=== PATIENT | male | born 1965 | race Caucasian/White ===

== ENCOUNTER 2017-10-31 13:23 | Inpatient (IN) | payer OTHER, MEDICAID ==
[~2017-10-31] VITALS: Ht 175.3 cm; Wt 57.2 kg
[2017-10-31 14:43] LABS: BASOPHILS # (AUTO) 0.3 K/uL (0.00-0.22); BASOPHILS % (AUTO) 2.1 % (0.0-2.0); EOSINOPHILS # (AUTO) 0.1 K/uL (0-0.4); EOSINOPHILS % (AUTO) 1.1 % (0.0-4.0); HEMATOCRIT 43.3 % (36-52); HEMOGLOBIN 13.6 g/dL (12.0-18.0); LYMPHOCYTES # (AUTO) 1.8 K/uL (2.0-11.5); LYMPHOCYTES % (AUTO) 14.2 % (20.5-51.1); MEAN CORPUSCULAR HEMOGLOBIN 26 pg (27-31); MEAN CORPUSCULAR HGB CONC 32 g/dL (33-37); MEAN CORPUSCULAR VOLUME 84 fL (80-94); MONOCYTES # (AUTO) 1.2 K/uL (0.8-1.0); MONOCYTES % (AUTO) 9.3 % (1.7-9.3); NEUTROPHILS % (AUTO) 73.3 % (42.2-75.2); PLATELET COUNT (AUTO) 330 K/uL (140-450); RED BLOOD CELL COUNT(AUTO) 5.18 MIL/uL (4.20-6.10); RED CELL DISTRIBUTION WIDTH 14.1 % (11.6-13.7); WHITE BLOOD COUNT (AUTO) 12.4 K/uL (4.8-10.8)
--- NOTE | 2017-10-31 15:00 | NUR ---
PT BIB CAREGIVER FOR EVALUATION OF GT MALFUNCTION, REFERRED PER PCP. HX MR, GERD, ANEMIA, GT, HYPERSCOLIOSIS, HIATAL HERNIA. CAREGIVER REPORTS PT HAS HAD MULTIPLE ISSUES W/GT, SEVERAL MALFUNCTIONS, HIGH RESIDUALS, CHANGED FROM GT TO JT AND BACK AGAIN. DENIES N/V/D; SKIN IS PINK/WARM/DRY; AAOX4 WITH EVEN AND STEADY GAIT; LUNGS CLEAR BL; HR EVEN AND REGULAR; PT DENIES ANY FEVER, CP, SOB, OR COUGH AT THIS TIME; PATIENT STATES PAIN OF 0/10 AT THIS TIME; VSS; PATIENT POSITIONED FOR COMFORT; HOB ELEVATED; BEDRAILS UP X2; BED DOWN. ER MD MADE AWARE OF PT STATUS.
[2017-10-31 15:11] LABS: ANION GAP 11.9 (8-16); POTASSIUM 4.9 mmol/L (3.5-5.1)
[2017-10-31 15:12] LABS: ALBUMIN 3.5 g/dL (3.4-5.0); CREATININE 1.2 mg/dL (0.7-1.3); TOTAL BILIRUBIN 0.3 mg/dL (0.0-1.0)
[2017-10-31] MEDS ORDERED: NACL 0.9% 1,000 ML IV ONE (15:30)
[2017-10-31] MEDS ORDERED: HYDROcodone/APAP 7.5/325 MG 1 TAB PO PRN (15:35)
[2017-10-31] MEDS ORDERED: ACETAMINOPHEN 325 MG TAB PO PRN (15:35)
[2017-10-31] MEDS ORDERED: ONDANSETRON 4 MG/2 ML VIAL IVP PRN (15:35)
[2017-10-31 16:26] LABS: PROTHROMBIN TIME 10.3 secs (10.8-13.4)
[2017-10-31 16:31] LABS: APPEARANCE,URINE CLOUDY (CLEAR); COLOR,URINE YELLOW (YELLOW)
[2017-10-31 16:32] LABS: UGLUCOSE NEGATIVE (NEGATIVE)
[2017-10-31 16:33] LABS: BILIRUBIN,URINE NEGATIVE (NEGATIVE); BLOOD, URINE 1+ (NEGATIVE)
[2017-10-31 16:34] LABS: LEUKOCYTE ESTERASE ,URINE 4+ (NEGATIVE); NITRITE, URINE NEGATIVE (NEGATIVE)
[2017-10-31] MEDS ORDERED: HALOPERIDOL IM 5 MG/ML VIAL IM PRN (16:35)
[2017-10-31 16:36] LABS: RBC,URINE 3-10 (FEW) /HPF (0-5); WBC,URINE 60-80 /HPF (0-5)
[2017-10-31 16:37] LABS: MAGNESIUM 2.5 mg/dL (1.8-2.4); PHOSPHORUS 3.5 mg/dL (2.5-4.9)
--- NOTE | 2017-10-31 16:40 | NUR ---
RECEIVED BEDSIDE REPORT FROM RESHMA. PATIENT IS AWAKE, NONVERBAL. DOES NOT FOLLOW COMMANDS. HAS CEREBRAL PALSY. LIKES TO HAS HIS ARMS FOLDED, AND STRAIGHTENS HIS LEGS AND BRINGS THEM TO HIS CHEST. DOES A ROCKING MOTION AND GRINDS HIS TEETH. PATIENT IS ON ROOM AIR. NO SIGNS AND SYMPTOMS OF ACUTE DISTRESS NOTED AT THIS TIME. PATIENT HAS G-TUBE IN BUT IS CURRENTLY NOT PATENT. NO FEEDING ORDERED AT THIS TIME. HAS IV TO LEFT AC 22G, DUE TO PATIENT LIKING TO KEEP ARM BENT IT WILL ALARM EVERY NOW AND THEN. SKIN IS INTACT, HAS REDNESS ON INNER BUTTOCKS. WILL AWAIT DRS ORDERS. WILL CONTINUE TO MONITOR.
--- NOTE | 2017-10-31 16:42 | NUR ---
Patient will be admitted to care of DR GIBBS. Admited to TELE. Will go to room 105B. Belongings list completed. Report to ROBERTO CARLOS SALMERON.
[2017-10-31] MEDS ORDERED: METO5SOL19 GT (17:21)
[2017-10-31] MEDS ORDERED: [UNRECOGNIZED DRUG - CODE] PO (17:21)
[2017-10-31] MEDS ORDERED: LORA5SOL3 PO (17:21)
[2017-10-31] MEDS ORDERED: BENZ1TAB42 PO (17:21)
[2017-10-31] MEDS ORDERED: HAL1 GT (17:21)
[2017-10-31] MEDS ORDERED: INSULIN LISPRO SLIDING SCALE 100 UNITS/ML VIAL SUBQ PRN (17:40)
[2017-10-31] MEDS ORDERED: DEXTROSE 50% 50 ML SYR IVP PRN (17:40)
--- NOTE | 2017-10-31 19:25 | NUR ---
ENDORSED PATIENT TO TECHNICAL SERVICES LIBRARIAN NURSE FOR CONTINUITY OF CARE. PATIENT IN STABLE CONDITION.
--- NOTE | 2017-10-31 19:25 | NUR ---
RECEIVED PT IN STABLE CONDITION FROM AM NURSE. PT ON TELE MONITOR. AWAKE,BUT NON VERBAL .HX: OF MENTAL RETARDATION, CEREBRAL PALSY. BEDREST. WITH SIDE RAILS UP AT ALL TIMES. BED ON LOW POSITION. FREQUENT ROUNDS NEEDED. CALL LIGHT PLACED WITHIN EASY REACH. HAS IVF INFUSING WELL ON THE LT AC#22. ROCEPHIN IVPB STILL INFUSING . SKIN RASHES ON THE BUTTOCKS. WILL KEEP PT CLEAN AND DRY. WILL CONTINUE TO MONITOR.
[2017-10-31 19:40] VITALS: BP 91/59
[2017-10-31] MEDS: DOCUSATE SODIUM 100 MG GELCAP PO SCH (21:00)
[2017-10-31] MEDS: NACL 0.9% 1,000 ML IV SCH ×2 (21:00→23:35)
[2017-10-31] MEDS: BLOOD GLUCOSE MONITORING 1 DEV DEV FS SCH (21:08)
--- NOTE | 2017-10-31 22:00 | NUR ---
MRSA NARES GABY SPECIMEN COLLECTED AND SEND TO LAB.
[2017-11-01] VITALS: BP 98/65
--- NOTE | 2017-11-01 01:34 | NUR ---
PT CAN'T KEEP THE ARM STRAIGHT FOR THE IVF . ANOTHER IV ACCESS STARTED ON THE LT WRIST #24. CLEAR AND PATENT.
[2017-11-01] MEDS: NACL 0.9% 1,000 ML IV SCH ×2 (02:28→07:35)
--- NOTE | 2017-11-01 02:43 | NUR ---
DR. RABAGO HERE AND SHE SAID NO NEED TO FAX AUTHORIZATION OF RECORDS FROM [facility] .
[2017-11-01] MEDS: HYDRAGUARD CREAM TP ONE ×2 (03:25→13:35)
[2017-11-01 04:07] VITALS: BP 103/68
--- NOTE | 2017-11-01 05:00 | NUR ---
MADE ROUNDS. PT IS ASLEEP. NO S/S OF ANY DISCOMFORT NOR DISTRESS NOTED.
[2017-11-01] MEDS: BLOOD GLUCOSE MONITORING 1 DEV DEV FS SCH ×4 (06:18→20:22)
--- NOTE | 2017-11-01 06:18 | NUR ---
BLOOD SUGAR CHECKED THIS AM RESULT 110.
--- NOTE | 2017-11-01 07:12 | NUR ---
ENDORSED PT IN STABLE CONDITION TO AM NURSE.
--- NOTE | 2017-11-01 07:14 | NUR ---
PT RESTING IN BED. AAOX1. NO S/S OF ACUTE DISTRESS. FLACC-0. IV SITES PATENT AND INTACT. TELE BOX IN PLACE. CALL LIGHT WITHIN REACH. SAFETY MEASURES ENSURED. WILL CONTINUE TO MONITOR.
[2017-11-01 07:35] VITALS: BP_SYST 149; BP_SYST 97; BP_DIAS 58; BP_DIAS 85
[2017-11-01 07:38] LABS: BASOPHILS # (AUTO) 0.1 K/uL (0.00-0.22); BASOPHILS % (AUTO) 1.3 % (0.0-2.0); EOSINOPHILS # (AUTO) 0.2 K/uL (0-0.4); EOSINOPHILS % (AUTO) 2.2 % (0.0-4.0); HEMATOCRIT 37.3 % (36-52); HEMOGLOBIN 12.3 g/dL (12.0-18.0); LYMPHOCYTES # (AUTO) 1.7 K/uL (2.0-11.5); LYMPHOCYTES % (AUTO) 18.7 % (20.5-51.1); MEAN CORPUSCULAR HEMOGLOBIN 27 pg (27-31); MEAN CORPUSCULAR HGB CONC 33 g/dL (33-37); MEAN CORPUSCULAR VOLUME 83 fL (80-94); MONOCYTES # (AUTO) 0.9 K/uL (0.8-1.0); MONOCYTES % (AUTO) 9.9 % (1.7-9.3); NEUTROPHILS # (AUTO) 6.1 K/uL (1.8-7.7); NEUTROPHILS % (AUTO) 67.9 % (42.2-75.2); PLATELET COUNT (AUTO) 236 K/uL (140-450); RED BLOOD CELL COUNT(AUTO) 4.51 MIL/uL (4.20-6.10); RED CELL DISTRIBUTION WIDTH 13.7 % (11.6-13.7)
[2017-11-01] MEDS: PANTOPRAZOLE 40 MG INJ VIAL IVP SCH (08:00)
[2017-11-01] MEDS: DOCUSATE SODIUM 100 MG GELCAP PO SCH ×2 (08:00→20:25)
[2017-11-01] MEDS: FAMOTIDINE 20 MG/2 ML VIAL IVP SCH (08:00)
[2017-11-01] MEDS: BENZTROPINE 2 MG/2 ML AMP IVP SCH (08:00)
[2017-11-01] MEDS: LACTOBACILLUS RHAMNOSUS GG 1 EACH CAP PO SCH (08:00)
--- NOTE | 2017-11-01 08:01 | NUR ---
PER DR. EMERY OKAY TO HOLD AM MEDS SINCE PT IS NPO AND G-TUBE IS LEAKING.
--- NOTE | 2017-11-01 08:57 | NUR ---
PATIENT HAS BEEN SCREENED AND CATEGORIZED HIGH NUTRITION RISK. PATIENT WILL BE SEEN WITHIN 1-2 DAYS OF ADMISSION. 11/01/17-11/02/[address]
[2017-11-01 09:04] LABS: ANION GAP 10.7 (8-16); CARBON DIOXIDE 31.2 mmol/L (21-32); POTASSIUM 3.9 mmol/L (3.5-5.1)
[2017-11-01 09:26] LABS: MAGNESIUM 2.4 mg/dL (1.8-2.4); PHOSPHORUS 3.7 mg/dL (2.5-4.9)
[2017-11-01 12:00] VITALS: BP 102/46
--- NOTE | 2017-11-01 12:03 | NUR ---
PT RESTING IN BED. NO S/S OF ACUTE DISTRESS. PT DENIES PAIN. CALL LIGHT WITHIN REACH. SAFETY MEASURES ENSURED. WILL CONTINUE TO MONITOR. Addendum: 11/01/17 at 1543 by Jp Dimas RN FLACC-0
[2017-11-01] MEDS: NACL 0.45% 1,000 ML IV SCH ×2 (12:30→20:24)
--- NOTE | 2017-11-01 15:43 | NUR ---
PT SLEEPING IN BED. NO S/S OF ACUTE DISTRESS. WILL CONTINUE TO MONITOR.
[2017-11-01 16:00] VITALS: BP 125/72
--- NOTE | 2017-11-01 16:17 | NUR ---
ENDORSED PLAN OF CARE TO RN. PT REMAINS STABLE
--- NOTE | 2017-11-01 17:30 | NUR ---
PATIENT TURNED AND REPOSITIONED FOR COMFORT
--- NOTE | 2017-11-01 18:35 | NUR ---
PATIENT ASLEEP IN BED. NO S/S OF DISTRESS NOTED
--- NOTE | 2017-11-01 19:18 | NUR ---
PATIENT REPORT GIVEN AT BEDSIDE. PATIENT ENDORSED IN STABLE CONDITION
--- NOTE | 2017-11-01 19:19 | NUR ---
PATIENT REPORT RECEIVED FROM MORNING NURSE AT BEDSIDE. PATIENT IS AWAKE. APHASIC. NO SIGNS AND SYMPTOMS OF DISTRESS NOTED. IV SITE NOTED ON LEFT AC, IVF INFUSING WELL. BED IN LOWEST POSITION, SIDE RAILS UP AND CALL LIGHT WITHIN REACH. WILL CONTINUE TO MONITOR.
[2017-11-01 20:00] VITALS: BP 103/68
[2017-11-01] MEDS: ZINC OXIDE 113 GM TUBE TP SCH (20:29)
--- NOTE | 2017-11-01 21:00 | NUR ---
COLACE HELD, PATIENT HAD 2 BOWEL MOVEMENTS IN THE MORNING
--- NOTE | 2017-11-01 21:30 | NUR ---
PATIENT POSITIONED FOR COMFORT. NO SIGNS AND SYMPTOMS OF DISTRESS NOTED. WILL CONTINUE TO MONITOR.
--- NOTE | 2017-11-01 23:00 | NUR ---
CHECKED ON PATIENT. PATIENT IS RESTING COMFORTABLY IN BED. NO SIGNS AND SYMPTOMS OF DISTRESS NOTED. PATIENT REPOSITIONED FOR COMFORT.
[2017-11-02] VITALS: BP 106/69
--- NOTE | 2017-11-02 02:00 | NUR ---
CHECKED ON PATIENT PATIENT IS ASLEEP. NO SIGNS AND SYMPTOMS OF DISTRESS NOTED. PATIENT REPOSITIONED FOR COMFORT
--- NOTE | 2017-11-02 04:00 | NUR ---
PATIENT VOMITED ON HIS GOWN. THE VOMIT WAS MODERATE IN AMOUNT AND WAS A LIGHT BROWN COLOR. I CHANGED THE PATIENT'S GOWN AND LINENS AND ADMINISTERED MEDICATION ORDERED FOR NAUSEA AND VOMITING. WILL CONTINUE TO MONITOR.
[2017-11-02] MEDS: NACL 0.45% 1,000 ML IV SCH (05:42)
[2017-11-02] MEDS: BLOOD GLUCOSE MONITORING 1 DEV DEV FS SCH ×4 (06:37→21:22)
--- NOTE | 2017-11-02 07:12 | NUR ---
PATIENT REPORT GIVEN TO MORNING NURSE AT BEDSIDE. PATIENT IS IN STABLE CONDITION
--- NOTE | 2017-11-02 07:13 | NUR ---
RECEIVED REPORT FROM PORTER SAMPLE CASE RN AT BEDSIDE FOR CONTINUITY OF CARE. PATIENT IS AWAKE AND NONVERBAL. PATIENT HAS IV ON LEFT AC 22G RUNNING 1/2 NS AT 100 ML/HR. PATIENT IS ON ROOM AIR. PATIENT HAS GTUBE. PATIENT HAS A DIAPER. PATIENT IS NPO AT THIS TIME. PATIENT HAS RASH ON GROIN AREA. PATIENT HAS SCDS. UPPER SIDE RAILS UP, BED ON LOWEST SETTING, CALL LIGHT WITHIN REACH, BED ALARM ON. PATIENT SHOWS NO SIGNS OF DISTRESS. Addendum: 11/02/17 at 1040 by Guillermo Taylor RN PATIENT LEFT AC WRAPPED IN KERLIX TO KEEP ARM STRAIGHT. PATIENT HAS IV ON LEFT WRIST 24 G, SALINE LOCK. WILL CONTINUE TO MONITOR.
[2017-11-02 07:14] LABS: BASOPHILS # (AUTO) 0.1 K/uL (0.00-0.22); BASOPHILS % (AUTO) 1.2 % (0.0-2.0); EOSINOPHILS # (AUTO) 0.2 K/uL (0-0.4); EOSINOPHILS % (AUTO) 1.8 % (0.0-4.0); HEMOGLOBIN 12.2 g/dL (12.0-18.0); LYMPHOCYTES # (AUTO) 1.3 K/uL (2.0-11.5); LYMPHOCYTES % (AUTO) 12.3 % (20.5-51.1); MEAN CORPUSCULAR HEMOGLOBIN 27 pg (27-31); MEAN CORPUSCULAR HGB CONC 32 g/dL (33-37); MEAN CORPUSCULAR VOLUME 83 fL (80-94); MONOCYTES # (AUTO) 0.7 K/uL (0.8-1.0); MONOCYTES % (AUTO) 6.5 % (1.7-9.3); NEUTROPHILS # (AUTO) 7.9 K/uL (1.8-7.7); NEUTROPHILS % (AUTO) 78.2 % (42.2-75.2); PLATELET COUNT (AUTO) 246 K/uL (140-450); RED BLOOD CELL COUNT(AUTO) 4.56 MIL/uL (4.20-6.10); RED CELL DISTRIBUTION WIDTH 14.4 % (11.6-13.7); WHITE BLOOD COUNT (AUTO) 10.2 K/uL (4.8-10.8)
[2017-11-02 07:18] LABS: CARBON DIOXIDE 29.5 mmol/L (21-32); CREATININE 0.9 mg/dL (0.7-1.3); POTASSIUM 4.5 mmol/L (3.5-5.1)
[2017-11-02 08:00] VITALS: BP 120/73
[2017-11-02 08:00] LABS: MAGNESIUM 2.3 mg/dL (1.8-2.4); PHOSPHORUS 3.3 mg/dL (2.5-4.9)
[2017-11-02] MEDS: FAMOTIDINE 20 MG/2 ML VIAL IVP SCH (08:55)
[2017-11-02] MEDS: PANTOPRAZOLE 40 MG INJ VIAL IVP SCH (08:55)
[2017-11-02] MEDS: BENZTROPINE 2 MG/2 ML AMP IVP SCH (08:55)
[2017-11-02] MEDS: DOCUSATE SODIUM 100 MG GELCAP PO SCH ×2 (08:56→21:00)
[2017-11-02] MEDS: LACTOBACILLUS RHAMNOSUS GG 1 EACH CAP PO SCH (08:56)
[2017-11-02] MEDS: ZINC OXIDE 113 GM TUBE TP SCH (09:10)
--- NOTE | 2017-11-02 09:11 | NUR ---
ADMINISTERED MORNING MEDS. PT TOLERATED WELL. WILL CONTINUE TO MONITOR PT.
--- NOTE | 2017-11-02 10:26 | NUR ---
CALLED [employer] TO OBTAIN CONSENT FOR PROCEDURE. PHONE NUMBER IS NOT A WORKING NUMBER. CALLED FACILITY AND THE DIRECTOR WILL CALL ME BACK WITH MORE INFO. WILL AWAIT FACILITY DIRECTOR' S CALL. SPOKE TO DR ORDONEZ TO CLARIFY JTUBE AND GTUBE PLACEMENT.
--- NOTE | 2017-11-02 10:36 | NUR ---
LIZBETH ESPARZA, ELECTRONIC ORGAN MECHANIC HAS AUTHORITY TO CONSENT FOR PT. GAVE V/O FOR GTUBE REPLACEMENT AND JTUBE PLACEMENT. I VERIFIED AND ROBERTO CARLOS GERMAN WAS THE 2ND VERIFICATION NURSE. CONSENTS IN CHART.
--- NOTE | 2017-11-02 11:10 | NUR ---
11/02/17 RD INITIAL ASSESSMENT COMPLETED PLEASE REFER TO NUTRITION ASSESSMENT UNDER CARE ACTIVITY FOR ESTIMATED NUTRITIONAL NEEDS. RD RECOMMENDATIONS: 1- RECOMMEND CONTINUE NPO DIET. 2- PT ESTIMATED NEEDS ARE CALCULATED AT [id number] KCALS & 69-85G DAILY AND CAN BE MET BY TF DIABETISOURCE @60MLS/HR WHEN PT IS MEDICALLY CLEARED FOR NUTRITION SUPPORT. 3- F/U 2-3 DAYS; HIGH RISK. BEKAH TAPIA MBA, RD
--- NOTE | 2017-11-02 14:15 | NUR ---
STARTED A NEW IV ON L FOOT 22G. 1 ATTEMPT. PT TOLERATED WELL. IV INFUSING AT 1/2 NS AT 100ML/HR. DISCONTINUED L AC AND L WRIST. WILL CONTINUE TO MONITOR PT.
--- NOTE | 2017-11-02 15:30 | NUR ---
ENDORSED PT TO KOBY JAMISON AT BEDSIDE FOR CONTINUITY OF CARE. PT IS IN STABLE CONDITION.
--- NOTE | 2017-11-02 15:30 | NUR ---
ASSUMED CONTINUITY OF CARE FROM GAVINO NUNEZ. PT. RESTING ON BED COMFORTABLY.
--- NOTE | 2017-11-02 15:44 | NUR ---
LAB CALLED. CRITICAL LAB REPORT: MRSA + NARES. WILL ENDORSE TO SHAHEEN. WILL NOTIFY
[2017-11-02 16:00] VITALS: BP 97/78
--- NOTE | 2017-11-02 17:22 | NUR ---
INFORMED DR. ORDONEZ ABOUT PT. NPO STATUS, AND BS 74 AT 1638 AND PT. HAS NOT SEEN BY DR. WALLIS YET. ALSO INFORMED CHARGE NURSE SHIMA NUNEZ.
--- NOTE | 2017-11-02 17:30 | NUR ---
DR. WALLIS CAME, REVIEWED PT. CHART, AND SEEN PT..
[2017-11-02] MEDS: DEXT 5% / NACL 0.45% 1,000 ML IV SCH (17:39)
--- NOTE | 2017-11-02 19:16 | NUR ---
BEDSIDE REPORT GIVEN TO ARACELI WADDELL -ROBERTO CARLOS. IVF INFUSING WELL. IN STABLE CONDITION.
--- NOTE | 2017-11-02 19:18 | NUR ---
RECEIVED REPORT FROM DAY SHIFT NURSE. PT IN BED, AWAKE AND ALERT. PT IS APHASIC. IV TO LEFT FOOR #22G WITH D5 1/2NS INFUSING WELL. PT IS NPO. FALL, SAFETY AND SEIZURE PRECAUTION IN PLACE. CALL LIGHT WITHIN REACH. WILL CONTINUE TO MONITOR.
--- NOTE | 2017-11-02 20:50 | NUR ---
DR. ANGUIANO ORDERED TO HOLD COLACE. PT IS NPO AND G-TUBE MALFUNCTION.
--- NOTE | 2017-11-02 21:05 | NUR ---
PT CLEANED AND CHANGED. PT WAS TURNED AND REPOSITIONED. FALL, SAFETY AND SEIZURE PRECAUTION IN PLACE. CALL LIGHT WITHIN REACH.
[2017-11-03] VITALS: BP 105/71
--- NOTE | 2017-11-03 00:20 | NUR ---
PT AWAKE, LYING COMFORTABLY IN BED. NO S/S OF PAIN OR DISCOMFORT NOTED.
--- NOTE | 2017-11-03 03:08 | NUR ---
PT SLEEPING BUT WAKES EASILY. NO S/S DISTRESS NOTED. CALL LIGHT WITHIN REACH.
[2017-11-03] MEDS: BLOOD GLUCOSE MONITORING 1 DEV DEV FS SCH ×4 (05:53→21:00)
--- NOTE | 2017-11-03 06:00 | NUR ---
PT KEPT CLEAN, DRY AND COMFORTABLE. BLOOD SUGAR CHECKED 89. NO S/S OF DISTRESS NOTED.
--- NOTE | 2017-11-03 07:15 | NUR ---
ENDORSED PT TO DAY SHIFT NURSE. PT IN STABLE CONDITION.
--- NOTE | 2017-11-03 07:16 | NUR ---
RECEIVED REPORT FROM BETTING CLERK RN AT BEDSIDE FOR CONTINUITY OF CARE. PT IN BED, AWAKE AND ALERT. PT IS APHASIC. LEFT FOOT IV #22G WITH D5 1/2 NS AT 70 ML/HR. PT IS NPO. FALL, SAFETY AND SEIZURE PRECAUTION IN PLACE. CALL LIGHT WITHIN REACH. WILL CONTINUE TO MONITOR.
[2017-11-03 07:57] LABS: BASOPHILS # (AUTO) 0.2 K/uL (0.00-0.22); BASOPHILS % (AUTO) 2.4 % (0.0-2.0); EOSINOPHILS # (AUTO) 0.1 K/uL (0-0.4); EOSINOPHILS % (AUTO) 1.5 % (0.0-4.0); HEMATOCRIT 36.1 % (36-52); HEMOGLOBIN 11.8 g/dL (12.0-18.0); LYMPHOCYTES # (AUTO) 1.3 K/uL (2.0-11.5); LYMPHOCYTES % (AUTO) 19.4 % (20.5-51.1); MEAN CORPUSCULAR HEMOGLOBIN 27 pg (27-31); MEAN CORPUSCULAR HGB CONC 33 g/dL (33-37); MEAN CORPUSCULAR VOLUME 83 fL (80-94); MONOCYTES # (AUTO) 0.6 K/uL (0.8-1.0); NEUTROPHILS # (AUTO) 4.7 K/uL (1.8-7.7); NEUTROPHILS % (AUTO) 68.7 % (42.2-75.2); PLATELET COUNT (AUTO) 240 K/uL (140-450); RED BLOOD CELL COUNT(AUTO) 4.34 MIL/uL (4.20-6.10); RED CELL DISTRIBUTION WIDTH 13.7 % (11.6-13.7); WHITE BLOOD COUNT (AUTO) 6.9 K/uL (4.8-10.8)
[2017-11-03 08:00] VITALS: BP 130/67
[2017-11-03 08:11] LABS: CARBON DIOXIDE 27.6 mmol/L (21-32); CREATININE 0.7 mg/dL (0.7-1.3); POTASSIUM 3.6 mmol/L (3.5-5.1)
[2017-11-03] MEDS: DOCUSATE SODIUM 100 MG GELCAP PO SCH ×2 (09:00→21:00)
[2017-11-03] MEDS: LACTOBACILLUS RHAMNOSUS GG 1 EACH CAP PO SCH (09:00)
[2017-11-03] MEDS: FAMOTIDINE 20 MG/2 ML VIAL IVP SCH (09:07)
[2017-11-03] MEDS: PANTOPRAZOLE 40 MG INJ VIAL IVP SCH (09:07)
[2017-11-03] MEDS: BENZTROPINE 2 MG/2 ML AMP IVP SCH (09:08)
[2017-11-03] MEDS: DEXT 5% / NACL 0.45% 1,000 ML IV SCH ×2 (09:09→22:01)
[2017-11-03 09:33] LABS: PHOSPHORUS 2.6 mg/dL (2.5-4.9)
[2017-11-03] MEDS: ZINC OXIDE 113 GM TUBE TP SCH (09:33)
--- NOTE | 2017-11-03 09:33 | NUR ---
ADMINISTERED MORNING MEDS. PATIENT TOLERATED THEM WELL. HELD COLACE AND LACTOBACILLUS, PATIENT NPO, NO OTHER ACCESS. WILL CONTINUE TO MONITOR PATIENT.
--- NOTE | 2017-11-03 11:50 | NUR ---
DIRECTOR OF OFFICIATING IN WITH PT. ADL, CHANGING LINENS, ASSISTED WITH PULLING PT UP. PT TOLERATING WELL.
--- NOTE | 2017-11-03 14:00 | NUR ---
PT RESTING, WATCHING TV. NO SIGNS OF DISTRESS. WILL CONTINUE TO MONITOR PT.
[2017-11-03] MEDS ORDERED: AMPICILLIN 1,000 MG in NACL 0.9% 50 ML IV SCH (14:45)
[2017-11-03] MEDS: AMPICILLIN 2,000 MG in NACL 0.9% 100 ML IV SCH ×2 (15:29→17:04)
[2017-11-03 16:00] VITALS: BP 115/67
--- NOTE | 2017-11-03 17:05 | NUR ---
ANOTHER AMPICILLIN IS SCHEDULED FOR 1800. LAST AMPICILLIN WAS GIVEN AT 1529. IT IS Q 6 HR. SO IT WAS HELD. NOTIFIED PHARMACY.
--- NOTE | 2017-11-03 19:17 | NUR ---
ENDORSED TO CHARGE NURSE. PATIENT IS IN STABLE CONDITION.
[2017-11-03 20:00] VITALS: BP 102/62
--- NOTE | 2017-11-03 21:00 | NUR ---
BLOOD SUGAR CHECKED 87. COLACE HELD PER DR. ANGUIANO ORDER. PT IS NPO AND GTUBE MALFUNCTION.
--- NOTE | 2017-11-03 22:12 | NUR ---
PT TURNED AND REPOSITIONED. PT CLEANED AND CHANGED.SAFETY PRECAUTION IN PLACE. ALL NEEDS MET AT THIS TIME. CALL LIGHT WITHIN REACH.
--- NOTE | 2017-11-03 22:16 | NUR ---
RECEIVED REPORT FROM CHARGE NURSE. PT IN BED, AWAKE AND ALERT. PT IS APHASIC. IV TO LEFT FOOT #22G WITH D5 1/2NS INFUSING WELL. PT IS NPO. FALL, SAFETY AND SEIZURE PRECAUTION IN PLACE. CALL LIGHT WITHIN REACH. WILL CONTINUE TO MONITOR. Addendum: 11/03/17 at 2218 by Elliott Abrams RN WRONG TIME
[2017-11-04] VITALS: BP 102/62
[2017-11-04] MEDS: AMPICILLIN 2,000 MG in NACL 0.9% 100 ML IV SCH ×5 (01:15→23:49)
--- NOTE | 2017-11-04 01:15 | NUR ---
PT IN BED, AWAKE. NO S/S OF PAIN OR DISCOMFORT.
--- NOTE | 2017-11-04 04:16 | NUR ---
PT SLEEPING BUT WAKES EASILY. NO S/S OF DISTRESS. CALL LIGHT WITHIN REACH.
[2017-11-04 07:01] LABS: BASOPHILS # (AUTO) 0.2 K/uL (0.00-0.22); BASOPHILS % (AUTO) 2.5 % (0.0-2.0); EOSINOPHILS # (AUTO) 0.2 K/uL (0-0.4); EOSINOPHILS % (AUTO) 2.2 % (0.0-4.0); HEMATOCRIT 34.7 % (36-52); HEMOGLOBIN 11.3 g/dL (12.0-18.0); LYMPHOCYTES % (AUTO) 12.6 % (20.5-51.1); MEAN CORPUSCULAR HEMOGLOBIN 27 pg (27-31); MEAN CORPUSCULAR HGB CONC 33 g/dL (33-37); MEAN CORPUSCULAR VOLUME 83 fL (80-94); MONOCYTES # (AUTO) 0.7 K/uL (0.8-1.0); MONOCYTES % (AUTO) 8.4 % (1.7-9.3); NEUTROPHILS # (AUTO) 6.1 K/uL (1.8-7.7); NEUTROPHILS % (AUTO) 74.3 % (42.2-75.2); PLATELET COUNT (AUTO) 213 K/uL (140-450); WHITE BLOOD COUNT (AUTO) 8.2 K/uL (4.8-10.8)
--- NOTE | 2017-11-04 07:19 | NUR ---
ENDORSED PT TO DAY SHIFT NURSE. PT IN STABLE CONDITION.
[2017-11-04 07:37] LABS: ANION GAP 9.8 (8-16); CARBON DIOXIDE 28.8 mmol/L (21-32); CREATININE 0.7 mg/dL (0.7-1.3); POTASSIUM 3.6 mmol/L (3.5-5.1)
--- NOTE | 2017-11-04 07:38 | NUR ---
ENDORSEMENT RECEIVED FROM HEAD UP OPERATOR HELPER NURSE. PATIENT IS SLEEPING COMFORTABLY. RESPIRATION EVEN, UNLABOR. SKIN DRY AND WARM. BED AT LOW POSITION, SEIZURE PRECAUTION WAS APPLIED. IV INFUSING WELL. CALL LIGHT WITHIN REACH. WILL CONTINUE TO MONITOR
[2017-11-04 07:58] LABS: MAGNESIUM 1.9 mg/dL (1.8-2.4); PHOSPHORUS 2.6 mg/dL (2.5-4.9)
[2017-11-04 08:00] VITALS: BP 135/62
[2017-11-04] MEDS: LACTOBACILLUS RHAMNOSUS GG 1 EACH CAP PO SCH (09:00)
[2017-11-04] MEDS: DOCUSATE SODIUM 100 MG GELCAP PO SCH ×2 (09:00→20:57)
[2017-11-04] MEDS: PANTOPRAZOLE 40 MG INJ VIAL IVP SCH (10:15)
[2017-11-04] MEDS: BENZTROPINE 2 MG/2 ML AMP IVP SCH (10:16)
[2017-11-04] MEDS: FAMOTIDINE 20 MG/2 ML VIAL IVP SCH (10:16)
[2017-11-04] MEDS: ZINC OXIDE 113 GM TUBE TP SCH (10:17)
--- NOTE | 2017-11-04 11:00 | NUR ---
PATIENT IS SLEEPING COMFORTABLY, EASILY AROUNSABLE BY SHAKING. RESPIRATION EVEN, UNLABOR. NO DISTRESS NOTED. IV INFUSING WELLFLACC 0. CALL LIGHT WITHIN REACH. WILL CONTINUE TO MONITOR
[2017-11-04] MEDS: BLOOD GLUCOSE MONITORING 1 DEV DEV FS SCH ×4 (11:30→21:02)
[2017-11-04] MEDS: DEXT 5% / NACL 0.45% 1,000 ML IV SCH (12:19)
--- NOTE | 2017-11-04 13:30 | NUR ---
PATIENT WAS CLEANED UP, CREAM WAS APPLIED TO THE GLUTEAL FOLD. NO DISTRESS NOTED. FLACC 0. WILL CONTINUE TO MONITOR
--- NOTE | 2017-11-04 14:03 | NUR ---
CALLED AND GOT ANESTHESIA CONSENT BY LIZBETH ESPARZA OVER THE PHONE. 2ND WITNESS BY COREY AZEVEDO.
[2017-11-04 16:00] VITALS: BP 117/54
--- NOTE | 2017-11-04 16:20 | NUR ---
PATIENT IS AWAKE, ALERT. RESPIRATION EVEN, UNLABOR. FLACC 0. NO DISTRESS NOTED AT THIS TIME. IV INFUSING WELL. WILL CONTINUE TO MONITOR
--- NOTE | 2017-11-04 18:44 | NUR ---
PATIENT IS SLEEPING COMFORTABLY. NO DISTRESS NOTED. FLACC 0. RESPIRATION EVEN, UNLABOR. IV INFUSING WELL. WILL CONTINUE TO MONITOR
--- NOTE | 2017-11-04 19:18 | NUR ---
ENDORSEMENT GIVEN TO THE MACHINE GUNNER NURSE. PATIENT IS STABLE AT THIS TIME.
--- NOTE | 2017-11-04 19:20 | NUR ---
RECEIVED PT IN STABLE CONDITION FROM AM NURSE. PT IS AWAKE, BUT NON VERBAL. ON MED SURG. BEDREST. WITH SIDE RAILS UP ,AND PADDED FOR SEIZURE PRECAUTIONS. BED ON LOW POSITION. FREQUENT ROUNDS NEEDED. IVF INFUSING WELL ON THE LT FOOT G#22. SEQUENTIAL MACHINE ON RT LOWER LEG. GT ,CLAMPED. NOT WORKING. PT KEPT NPO . WILL CONTINUE TO MONITOR.
--- NOTE | 2017-11-04 21:00 | NUR ---
PT WAS REPOSITIONED FOR COMFORT. INCONTINENT OF URINE. NO BM NOTED. KEPT CLEAN AND DRY.
--- NOTE | 2017-11-04 22:45 | NUR ---
CALLED DR. ZURITA, RESIDENT. MADE AWARE THAT PT NEED ORDER FOR THE MRSA NARES TREATMENT. SHE SAID SHE WILL DO ORDERS.
--- NOTE | 2017-11-04 23:46 | NUR ---
STARTED THE CHLORHEXIDINE BATH TREATMENT FOR THE MRSA NARES.
[2017-11-04] MEDS: CHLORHEXADINE GLUC 2% CLOTH TP SCH (23:48)
[2017-11-05 00:02] VITALS: BP 114/66
--- NOTE | 2017-11-05 01:30 | NUR ---
ROCCO CRAMER. PT IS ASLEEP. NO S/S OF ANY DISCOMFORT NOTED. KEPT NPO.
[2017-11-05] MEDS: DEXT 5% / NACL 0.45% 1,000 ML IV SCH ×2 (02:37→13:55)
--- NOTE | 2017-11-05 03:30 | NUR ---
ASLEEP. NO S/S OF ANY DISCOMFORT NOTED. WILL CONTINUE TO MONITOR.
[2017-11-05] MEDS: AMPICILLIN 2,000 MG in NACL 0.9% 100 ML IV SCH ×3 (05:44→17:15)
[2017-11-05 06:05] LABS: BASOPHILS # (AUTO) 0.2 K/uL (0.00-0.22); BASOPHILS % (AUTO) 3.4 % (0.0-2.0); EOSINOPHILS # (AUTO) 0.2 K/uL (0-0.4); EOSINOPHILS % (AUTO) 3.5 % (0.0-4.0); HEMATOCRIT 35.1 % (36-52); HEMOGLOBIN 11.4 g/dL (12.0-18.0); LYMPHOCYTES # (AUTO) 1.5 K/uL (2.0-11.5); MEAN CORPUSCULAR HEMOGLOBIN 27 pg (27-31); MEAN CORPUSCULAR HGB CONC 32 g/dL (33-37); MEAN CORPUSCULAR VOLUME 82 fL (80-94); MONOCYTES # (AUTO) 0.7 K/uL (0.8-1.0); MONOCYTES % (AUTO) 9.5 % (1.7-9.3); NEUTROPHILS # (AUTO) 4.5 K/uL (1.8-7.7); NEUTROPHILS % (AUTO) 62.6 % (42.2-75.2); PLATELET COUNT (AUTO) 210 K/uL (140-450); RED BLOOD CELL COUNT(AUTO) 4.26 MIL/uL (4.20-6.10); RED CELL DISTRIBUTION WIDTH 13.7 % (11.6-13.7); WHITE BLOOD COUNT (AUTO) 7.1 K/uL (4.8-10.8)
[2017-11-05] MEDS: BLOOD GLUCOSE MONITORING 1 DEV DEV FS SCH ×4 (06:21→21:52)
--- NOTE | 2017-11-05 06:22 | NUR ---
BLOOD SUGAR THIS AM 100. NO INSULIN COVERAGE NEEDED.
[2017-11-05 06:47] LABS: ANION GAP 11.9 (8-16); CARBON DIOXIDE 27.2 mmol/L (21-32); CREATININE 0.7 mg/dL (0.7-1.3); POTASSIUM 4.1 mmol/L (3.5-5.1)
--- NOTE | 2017-11-05 07:15 | NUR ---
ENDORSED PT IN STABLE CONDITION FROM AM NURSE.
[2017-11-05 08:00] VITALS: BP 100/54
[2017-11-05] MEDS ORDERED: NACL 0.9% 1,000 ML IV SCH (08:10)
[2017-11-05] MEDS: MUPIROCIN 2% OINT 22 GM TUBE TP SCH (09:00)
[2017-11-05] MEDS: LACTOBACILLUS RHAMNOSUS GG 1 EACH CAP PO SCH (09:00)
[2017-11-05] MEDS: DOCUSATE SODIUM 100 MG GELCAP PO SCH ×2 (09:00→21:00)
[2017-11-05] MEDS: ZINC OXIDE 113 GM TUBE TP SCH (09:00)
--- NOTE | 2017-11-05 09:45 | NUR ---
NG INSERTION ATTEMPTED MULTIPLE TIMES VIA BILAT NARES BY 3 DIFFERENT NURSES, UNABLE TO ADVANCE, CHARGE NURSE NOTIFIED, PT ERIC FAIRLY, WILL CONTINUE TO MONITOR
--- NOTE | 2017-11-05 10:21 | NUR ---
PER DR GORE, J TUBE TO BE REPLACED TODAY BY DR WALLIS, HOLD NGT
[2017-11-05] MEDS: FAMOTIDINE 20 MG/2 ML VIAL IVP SCH (10:22)
[2017-11-05] MEDS: PANTOPRAZOLE 40 MG INJ VIAL IVP SCH (10:22)
[2017-11-05] MEDS: BENZTROPINE 2 MG/2 ML AMP IVP SCH (10:22)
--- NOTE | 2017-11-05 11:19 | NUR ---
PT TAKEN TO OR AT THIS TIME.
[2017-11-05] MEDS ORDERED: fentaNYL 0.05 MG/ML VIAL ONE (11:30)
[2017-11-05] MEDS ORDERED: ROCURONIUM 50 MG/5 ML VIAL IV ONE (11:31)
[2017-11-05] MEDS ORDERED: PROPOFOL 200 MG/20 ML VIAL IV ONE (11:31)
[2017-11-05] MEDS ORDERED: NEOSTIGMINE 1:1000 10 MG/10 ML VIAL ONE (11:31)
[2017-11-05] MEDS ORDERED: GLYCOPYRROLATE 0.2 MG/ML VIAL ONE (11:31)
[2017-11-05] MEDS ORDERED: SEVOFLURANE 250 ML BTL INH ONE (11:31)
[2017-11-05] MEDS ORDERED: BUPIVACAINE-MPF 0.25% 30 ML VIAL INJ ONE (12:06)
[2017-11-05] MEDS ORDERED: ONDANSETRON 4 MG/2 ML VIAL IVP PRN (12:55)
[2017-11-05] MEDS ORDERED: KETOROLAC 30 MG/ML VIAL IVP PRN (12:55)
[2017-11-05] MEDS ORDERED: BLOOD GLUCOSE MONITORING 1 DEV DEV FS SCH (12:56)
--- NOTE | 2017-11-05 13:40 | NUR ---
PT RETURNED FROM OR,
[2017-11-05 13:45] VITALS: BP 119/64
--- NOTE | 2017-11-05 13:52 | NUR ---
1340 CALL PLACED TO LISTED PHONE NUMBER ON FACESHEET [phone] AND NUMBER WAS A FAX. CALLED [facility] AND SPOKE WITH CARLYLE SERRA AND SHE STATED THAT PT IS UNDER THE [facility] AND THE ASSIGNED CM IS ANISHA [phone]. STATED THAT THE CONTACT NUMBER FOR PT SHE HAS IS [phone]. CALLED THE NUMBER AND SPOKE WITH IMELDA WHO IDENTIFIED HERSELF THE PHYSICAL MEDICINE PHYSICIAN WHERE PT RESIDES WHICH IS [facility] IN [place]. STATED THAT THE NUMBER [phone] IS THE CORRECT NUMBER FOR THE HOME BUT IS SOMETIMES PUT ON FAX MODE. PER IMELDA SHE CAN BE REACHED AT THE [phone]. UPDATED HER THAT PT HAD J-TUBE PLACED TODAY AND MOST LIKELY WILL BE DISCHARGED HOME TOMORROW. PER IMELDA IF ANY OF PTS HOME MEDS ARE CHANGED OR PT IS TO HAVE NEW MEDS SHE NEEDS TO KNOW EARLY SO THEY CAN BE ORDERED FROM THEIR PHARMACY. PER IMELDA THE HOME WILL SUPPLY TRANSPORTATION ON DISCHARGE.
--- NOTE | 2017-11-05 13:57 | NUR ---
11/05/17 RD FOLLOW UP COMPLETED PLEASE REFER TO NUTRITION PROGRESS NOTE UNDER CARE ACTIVITY FOR ESTIMATED NUTRITION NEEDS. 1- RECOMMEND CONTINUE NPO DIET UNTIL APPROPRITATE TO BEGIN TF VIA JT. 2- PT ESTIMATED NEEDS ARE CALCULATED AT [phone] KCALS & 69-85G DAILY AND CAN BE MET BY TF DIABETISOURCE @60MLS/HR WHEN PT IS MEDICALLY CLEARED FOR ENTERAL NUTRITION SUPPORT. 3- F/U 2-3 DAYS; HIGH RISK TAM ARDON, RD
--- NOTE | 2017-11-05 14:03 | NUR ---
ADDITIONAL NOTE. PT IS NOT CONSERVED AND CARE IS OVERSEEN BY [facility].
--- NOTE | 2017-11-05 17:20 | NUR ---
AMPICILLIN STARTED PER ORDER, IV SITE CLEAR, PT AWAKE RESTING QUIELTY IN NAD, J TUBE SITE CDI, LÁZARO CARE DONE, WILL CONTINUE TO MONITOR.
--- NOTE | 2017-11-05 19:18 | NUR ---
REPORT GIVEN TO NGOC AZEVEDO, PT IN STABLE CONDITION.
[2017-11-05] MEDS: CHLORHEXADINE GLUC 2% CLOTH TP SCH (21:52)
[2017-11-06] VITALS: BP 114/72
[2017-11-06] MEDS: AMPICILLIN 2,000 MG in NACL 0.9% 100 ML IV SCH ×5 (02:06→23:39)
[2017-11-06] MEDS: DEXT 5% / NACL 0.45% 1,000 ML IV SCH (04:13)
[2017-11-06 05:35] LABS: BASOPHILS # (AUTO) 0.1 K/uL (0.00-0.22); BASOPHILS % (AUTO) 0.8 % (0.0-2.0); EOSINOPHILS # (AUTO) 0.1 K/uL (0-0.4); EOSINOPHILS % (AUTO) 0.4 % (0.0-4.0); HEMATOCRIT 36.4 % (36-52); LYMPHOCYTES # (AUTO) 1.2 K/uL (2.0-11.5); LYMPHOCYTES % (AUTO) 8.9 % (20.5-51.1); MEAN CORPUSCULAR HEMOGLOBIN 27 pg (27-31); MEAN CORPUSCULAR HGB CONC 33 g/dL (33-37); MEAN CORPUSCULAR VOLUME 82 fL (80-94); MONOCYTES # (AUTO) 0.8 K/uL (0.8-1.0); MONOCYTES % (AUTO) 5.9 % (1.7-9.3); NEUTROPHILS # (AUTO) 10.8 K/uL (1.8-7.7); PLATELET COUNT (AUTO) 239 K/uL (140-450); RED BLOOD CELL COUNT(AUTO) 4.47 MIL/uL (4.20-6.10); RED CELL DISTRIBUTION WIDTH 13.9 % (11.6-13.7)
[2017-11-06 06:23] LABS: ANION GAP 12.5 (8-16); CARBON DIOXIDE 28.3 mmol/L (21-32); CREATININE 0.8 mg/dL (0.7-1.3); POTASSIUM 3.8 mmol/L (3.5-5.1)
[2017-11-06] MEDS: BLOOD GLUCOSE MONITORING 1 DEV DEV FS SCH ×4 (07:10→21:22)
--- NOTE | 2017-11-06 07:30 | NUR ---
REPORT RECIEVED FROM INSURANCE SALESPERSON, PT AWAKE ALERT, RESP EVEN UNLAOBRED ON ROOM AIR, SKIN WARM DRY CLOR SLIGHTLY PALE, MALFUNCTIONED G-TUBE CLAMPED, NEW J TUBE IN PLACE, DRESSING CDI, IV TO RIGHT UPPER ARM CDI, INFUSING IVF WELL, DIAPER CHANGED, PERICARE DONE, PLAN OF CARE REVIEWED, PT APPEARS IN NO PAIN OR DISCOMFORT, CALL MELO WITHIN REACH SIDE RAILS UP, BED LOCKED IN LOW POSITION WILL CONTINUE TO MOTNIR.
[2017-11-06 08:00] VITALS: BP 100/62
--- NOTE | 2017-11-06 08:02 | NUR ---
ATTEMPTED TO START J-TUBE FEEDING PER ORDER, FEEDING PUMP NOT WORKING, WILL OBTAIN NEW PUMP. J TUBE FLUSHES WELL WITH EASE, NO LEAKING, SITE WNL. WILL CONTINUE TO MONITOR.
--- NOTE | 2017-11-06 08:48 | NUR ---
PONCE NOTE RECEIVED PRESCRIPTION FOR AMPICILLIN AND LACTINEX FROM DR. RABAGO. SPOKE WITH IMELDA OF [facility] IN [facility]# [phone] AND SHE SAID TO FAX THE PRESCRIPTION TO [facility] IN [place] [phone] # [phone]. FAXED PRESCRIPTION TO [facility] IN [place] [phone] # [phone]. DR RABAGO AND IMELDA [facility] [place] AWARE. Addendum: 11/06/17 at 0943 by Mague [place] CM CONFIRMED WITH DEV OF [facility] IN [facility]# [phone] THAT THEY HAVE RECEIVED THE PRESCRIPTION FAXED
--- NOTE | 2017-11-06 09:06 | NUR ---
LIZBETH ESPARZA (RUBBER TUBING SPLICER) CALLED TO CHECK ON PT'S DISCHARGE STATUS, INFORMED HER THAT PT DOES NOT HAVE DC ORDER, AND WILL CALL HER WHEN DC ORDER RECEIVED. PHONE NUMBER [phone]
[2017-11-06] MEDS: PANTOPRAZOLE 40 MG INJ VIAL IVP SCH (09:23)
[2017-11-06] MEDS: FAMOTIDINE 20 MG/2 ML VIAL IVP SCH (09:24)
[2017-11-06] MEDS: BENZTROPINE 2 MG/2 ML AMP IVP SCH (09:24)
[2017-11-06] MEDS: MUPIROCIN 2% OINT 22 GM TUBE TP SCH (09:25)
[2017-11-06] MEDS: LACTOBACILLUS RHAMNOSUS GG 1 EACH CAP PO SCH (09:25)
[2017-11-06] MEDS: DOCUSATE SODIUM 100 MG GELCAP PO SCH ×2 (09:25→21:00)
[2017-11-06] MEDS: ZINC OXIDE 113 GM TUBE TP SCH (09:25)
--- NOTE | 2017-11-06 09:30 | NUR ---
NEW FEEDING PUMP ARRIVED, FEEDING STARTED AT 20ML/HR.
--- NOTE | 2017-11-06 10:07 | NUR ---
Heat Regulator contact Patient's [facility] PONCE LANCASTER at . Provided her with Patient's update and plan for for patient to D/C back to senior care in [place]. Heat Regulator attempted to update family contact information, However CM stated that she had the case for about 2 years and the only contact number and only family involved that she knows is patient's sister (Delphine) on the same number [facility] has on file. This health technical writer informed CM that the contact number its no longer a working number. CM Stated that same number is the only one she has and that Patient's sister has not been in contact for over 2 years. PONCE was appreciative of the updated call and ended conversation.
--- NOTE | 2017-11-06 10:45 | NUR ---
[facility] CALLED TO CHECK ON PT STATUS. WILL CALL [facility] [phone] FOR HOME HEALTH NEEDS.
[2017-11-06] MEDS: NACL 0.9% 1,000 ML IV SCH (11:23)
--- NOTE | 2017-11-06 12:05 | NUR ---
BLOOD SUGAR 87, NO INSULIN NEEDED PER SLIDING SCALE, J TUBE FEEDING ON GOING, NO LEAKING, ABD SOFT, NON DISTENDED, PT ERIC WELL.
--- NOTE | 2017-11-06 14:26 | NUR ---
PT ERIC FEEDING WELL, RATE ADVANCED TO 30ML/HR.
[2017-11-06 16:00] VITALS: BP 103/72
--- NOTE | 2017-11-06 17:45 | NUR ---
LIZBETH ESPARZA (CAMP BOSS) CALLED TO INFORM OF J-TUBE HANDLING PRECAUTIONS, LIZBETH ESPARZA INSTRUCTED TO BE VERY CAUTIOUS WHEN MOVING/TRANSFERRING/CLEANING PATIENT J-TUBE DOES NOT HAVE A BALLOON STOPPER AND CAN EASILY FALL OUT. LIZBETH ESPARZA VERBALIZED FULL UNDERSTANDING AND EXPRESSED HER APPRECIATION FOR THE INFORMATION.
--- NOTE | 2017-11-06 18:05 | NUR ---
PER DR Juan NOGUEIRA, G TUBE TO DRAIN TO GRAVITY. FOLLEY DRAIN BAG CONNECTED TO G-TUBE, DARK DRAINAGE NOTED IN TUBING.
--- NOTE | 2017-11-06 18:44 | NUR ---
PERICARE DONE, PT CLEANED, DIAPER CHANGED, J-TUBE FEEDING CONTINUES AT 30ML/HR, IV ANTIBIOTIC INFUSING WELL WITHOUT PROBLEM, PT APPEARS COMFORTABLE, WILL CONTINUE TO MONTIOR.
--- NOTE | 2017-11-06 19:28 | NUR ---
REPORT GIVEN TO SEARCH ANALYST NURSE, PT IN STABLE CONDITION.
--- NOTE | 2017-11-06 19:35 | NUR ---
RECEIVED REPORT FROM DAY RN, PATIENT RESTING IN BED, NO S/S OF DISTRESS NOTED, RESPIRATION EVEN AND UNLABORED, IV PATENT AND INTACT, INFUSING NS AT 70ML/HR, J-TUBE IN PLACE WITH CONTINUOUS FEEDING AT 30ML/HR, G-TUBE IS CONNECTED WITH DRAINING BAG, DRAINING GASTRIC FLUIDS BY GRAVITY. CALL LIGHT WITHIN REACH, SAFETY MEASURE ENSURED, WILL CONTINUE TO MONITOR.
--- NOTE | 2017-11-06 21:23 | NUR ---
PATIENT IS UNABLE TO TAKE PO MEDICATION, PATIENT HAS G-TUBE AND J-TUBE.
--- NOTE | 2017-11-06 22:09 | NUR ---
RECEIVED REPORT FROM MARLEE AZEVEDO FOR CONTINUITY OF CARE, PT IN STABLE CONDITION. NO S/S OF DISTRESS NOTED. J TUBE PATENT AND INTACT, NO LEAKAGE NOTED. CHECKED WITH KARISSA. SKIN IS WARM AND DRY TO TOUCH. ALL SAFETY PRECAUTIONS MET, CALL LIGHT WITHIN REACH, WILL CONTINUE TO MONITOR
--- NOTE | 2017-11-06 22:09 | NUR ---
ENDORSED PLAN OF CARE TO ANOTHER RN, PATIENT IS IN STABLE CONDITION, NO S/S OF DISTRESS NOTED.
[2017-11-06] MEDS: CHLORHEXADINE GLUC 2% CLOTH TP SCH (23:24)
--- NOTE | 2017-11-06 23:28 | NUR ---
RECEIVED REPORT FROM NURSE MILLER RN, PT STABLE, NO DISTRESS NOTED, WILL CONTINUE TO MONITOR.
[2017-11-07] VITALS: BP 103/64
[2017-11-07] MEDS: NACL 0.9% 1,000 ML IV SCH (00:48)
[2017-11-07] MEDS: AMPICILLIN 2,000 MG in NACL 0.9% 100 ML IV SCH ×2 (06:02→12:51)
[2017-11-07] MEDS: BLOOD GLUCOSE MONITORING 1 DEV DEV FS SCH ×2 (06:20→11:39)
[2017-11-07] MEDS ORDERED: AMPI500C49 PO (06:29)
--- NOTE | 2017-11-07 07:15 | NUR ---
ASSUMED CONTINUITY OF CARE. NO SIGNS AND SYMPTOMS OF ACUTE DISTRESS NOTED. INITIAL ASSESSMENT DONE. KEEP COMFORTABLE ON BED. SEIZURE AND FALL PRECAUTION APPLIED. CALL LIGHT WITHIN REACH.
--- NOTE | 2017-11-07 07:15 | NUR ---
GAVE BEDSIDE TO DAY SHIFT NURSE SHAHEEN WHALEN, ENDORSED PLAN OF CARE, PT STABLE, NO DISTRESS NOTED.
[2017-11-07 07:20] LABS: BASOPHILS # (AUTO) 0.2 K/uL (0.00-0.22); BASOPHILS % (AUTO) 1.8 % (0.0-2.0); EOSINOPHILS # (AUTO) 0.2 K/uL (0-0.4); EOSINOPHILS % (AUTO) 1.8 % (0.0-4.0); HEMATOCRIT 32.9 % (36-52); HEMOGLOBIN 10.9 g/dL (12.0-18.0); LYMPHOCYTES # (AUTO) 0.8 K/uL (2.0-11.5); LYMPHOCYTES % (AUTO) 8.3 % (20.5-51.1); MEAN CORPUSCULAR HEMOGLOBIN 27 pg (27-31); MEAN CORPUSCULAR HGB CONC 33 g/dL (33-37); MEAN CORPUSCULAR VOLUME 82 fL (80-94); MONOCYTES # (AUTO) 0.7 K/uL (0.8-1.0); MONOCYTES % (AUTO) 7.5 % (1.7-9.3); NEUTROPHILS # (AUTO) 7.5 K/uL (1.8-7.7); NEUTROPHILS % (AUTO) 80.6 % (42.2-75.2); PLATELET COUNT (AUTO) 230 K/uL (140-450); RED BLOOD CELL COUNT(AUTO) 4.04 MIL/uL (4.20-6.10); RED CELL DISTRIBUTION WIDTH 13.2 % (11.6-13.7)
[2017-11-07 07:49] LABS: ANION GAP 12.5 (8-16); CARBON DIOXIDE 24.9 mmol/L (21-32); CREATININE 0.6 mg/dL (0.7-1.3); POTASSIUM 3.4 mmol/L (3.5-5.1)
[2017-11-07 07:52] LABS: WHITE BLOOD COUNT (AUTO) 9.4 K/uL (4.8-10.8)
[2017-11-07 08:00] VITALS: BP 143/74
--- NOTE | 2017-11-07 08:00 | NUR ---
Patient's Plan of Care was discussed and reviewed with GAUNTLET PAIRER: SHAHEEN
[2017-11-07] MEDS: BENZTROPINE 2 MG/2 ML AMP IVP SCH (08:25)
[2017-11-07] MEDS: FAMOTIDINE 20 MG/2 ML VIAL IVP SCH (08:25)
[2017-11-07] MEDS: PANTOPRAZOLE 40 MG INJ VIAL IVP SCH (08:25)
[2017-11-07] MEDS: LACTOBACILLUS RHAMNOSUS GG 1 EACH CAP PO SCH (09:15)
[2017-11-07] MEDS: DOCUSATE SODIUM 100 MG GELCAP PO SCH (09:15)
[2017-11-07] MEDS: ZINC OXIDE 113 GM TUBE TP SCH (09:16)
[2017-11-07] MEDS: MUPIROCIN 2% OINT 22 GM TUBE TP SCH (09:16)
--- NOTE | 2017-11-07 09:48 | NUR ---
CALLED LIZBETH SALES AND SERVICE ENGINEER AT AND INFORMED THAT WILL BE D/C BACK TO FACILITY TODAY 11/07/17 AND ALSO EXPLAINED TEACHING ABOUT JT AND GT CARE. LIZBETH SALES AND SERVICE ENGINEER VERBALIZED UNDERSTANDING VIA PHONE. INFORMED CHARGE NURSE SHIMA NUNEZ.
--- NOTE | 2017-11-07 10:00 | NUR ---
INFORMED DR. VARELA ABOUT PT. K 3.4.
--- NOTE | 2017-11-07 10:22 | NUR ---
CM NOTE PER IMELDA OF [facility] IN [facility]# [phone], THEIR STAFF IS TRAINED TO TAKE CARE OF G TUBES AND J TUBES AND THEY HAVE OTHER RESIDENTS THERE WITH THEM WHO HAVE G TUBES AND J TUBES. SHE ALSO SAID THAT THEY HAVE HAD HOME HEALTH COME TO THEIR FACILITY BEFORE FOR PHYSICAL THERAPY BUT NOT FOR G TUBE OR J TUBE CARE.
[2017-11-07] MEDS ORDERED: POTASSIUM CHLORIDE 40 MEQ, LIDOCAINE 1% 25 MG in NACL 0.9% 250 ML IV SCH (10:30)
[2017-11-07] MEDS ORDERED: MUPIROCIN 2% OINT 22 GM TUBE TP SCH (10:49)
[2017-11-07 12:00] VITALS: BP 102/61
--- NOTE | 2017-11-07 12:47 | NUR ---
CALLED LIZBETH -OUTSIDE SALES INSPECTOR AT REGARDING PT. TRANSPORT FOR DISCHARGE. INFORMED CHARGE NURSE SHIMA CARPENTER --RN.
--- NOTE | 2017-11-07 15:25 | NUR ---
PT. CAREGIVER -NILS NAILS AND DIVYA YING CAME TO TONGUE STITCHER PT.. EXPLAINED TO PT. CAREGIVER -NILS NAILS ABOUT MD D/C ORDER, D/C INSTRUCTIONS AND TEACHING, PT. FOLLOW UP WITH DR. LIZ MD D/C PRESCRIPTION LIST EDUCATION, GT AND JT CARE TEACHING. NILS NAILS -CAREGIVER VERBALIZED UNDERSTANDING.
--- NOTE | 2017-11-07 15:45 | NUR ---
D/C VIA WHEELCHAIR ACCOMPANIED BY PT. CAREGIVER NILS JAQUI AND DIVYA YING. PT. IN STABLE CONDITION. INFORMED CHARGE NURSE SHIMA NUNEZ.
== END 2017-11-07 15:45 | DRG 871 ==
LOC: MED 13:23 → MTU 15:46
PROVIDERS: ADMIT Family Medicine; ATTEND Family Medicine
PROC: 0DHA3UZ Insertion of Feeding Device into Jejunum, Percutaneous Approach (ICD-10-PCS; principal; 2017-11-05 10:30)
DX: A41.9 Sepsis, unspecified organism (principal); N17.0 Acute kidney failure with tubular necrosis; E43 Unspecified severe protein-calorie malnutrition; R53.2 Functional quadriplegia; K94.23 Gastrostomy malfunction; E87.0 Hyperosmolality and hypernatremia; D68.59 Other primary thrombophilia; E87.8 Other disorders of electrolyte and fluid balance, not elsewhere classified; N39.0 Urinary tract infection, site not specified; Z68.1 Body mass index [BMI] 19.9 or less, adult; R65.20 Severe sepsis without septic shock; E83.41 Hypermagnesemia; E11.9 Type 2 diabetes mellitus without complications; K21.9 Gastro-esophageal reflux disease without esophagitis; G80.9 Cerebral palsy, unspecified; E86.0 Dehydration
CPT/HCPCS: 36415; 71010; 74000; 80048; 80053; 81001; 82948; 83605; 83690; 83735; 83880; 84100; 84484; 85025; 85610; 85730; 86886; 86900; 86901; 87040; 87081; 87086; 87186; 93005; 99285; C1758; C9113; J0290; J0515; J0696; J1815; J2001; J2405; J2704; J2710; J3010; J3480; J3490; J7030; J7060; Q0092

== ENCOUNTER 2017-11-11 18:50 | Inpatient (IN) | payer OTHER, MEDICAID ==
[~2017-11-11] VITALS: Ht 175.3 cm; Wt 50.3 kg
[~2017-11-11 18:50] MED LIST: AMPI500C49 PO; BENZ1TAB42 PO; FAMO40PD4 PO; HAL1 GT; LORA5SOL3 PO; METO5SOL19 GT
[2017-11-11 18:53] VITALS: BP 103/68
--- NOTE | 2017-11-11 19:08 | NUR ---
PT PLACED IN BED 11.
--- NOTE | 2017-11-11 19:11 | NUR ---
PATIENT IS A 52 Y/O MALE WHO PRESENTS TO THE ED C/O G-TUBE REPLACEMENT. PER [facility], PT HAS HISTORY OF PULLING G-TUBES. PT IN NO VISIBLE SIGNS OF PAIN. NO SIGNS OF CP, SOB, N/V/D. NOTED ABD BINDER WITH G-TUBE PRESENT. PT ACTING DEVELOPMENTALLY APPROPRIATE FOR MENTAL HISTORY, RR EVEN/UNLABORED. PT REPOSITIONED FOR COMFORT, BED IN LOWEST POSITION. ER MD DR. BRADY NOTIFIED. WILL CONTINUE TO MONITOR.
[2017-11-11] MEDS ORDERED: HAL1 GT ×2 (20:50→21:00)
[2017-11-11] MEDS ORDERED: IBUP200S18 PO (20:50)
[2017-11-11] MEDS ORDERED: LORA-476 GT (20:50)
[2017-11-11] MEDS ORDERED: ONDA4TAB GT (20:50)
[2017-11-11] MEDS ORDERED: ROB1 PO (20:50)
[2017-11-11] MEDS ORDERED: ACET-2619 GT (20:50)
[2017-11-11] MEDS ORDERED: BISA5ECT43 RC (20:50)
[2017-11-11] MEDS ORDERED: IBUP-2213 GT (20:50)
[2017-11-11] MEDS ORDERED: IMO2 GT (20:50)
[2017-11-11] MEDS ORDERED: AMPI500C49 PO (20:54)
[2017-11-11 20:56] LABS: BASOPHILS # (AUTO) 0.1 K/uL (0.00-0.22); BASOPHILS % (AUTO) 1.2 % (0.0-2.0); EOSINOPHILS # (AUTO) 0.3 K/uL (0-0.4); EOSINOPHILS % (AUTO) 2.9 % (0.0-4.0); HEMATOCRIT 32.2 % (36-52); HEMOGLOBIN 10.3 g/dL (12.0-18.0); LYMPHOCYTES # (AUTO) 1.6 K/uL (2.0-11.5); MEAN CORPUSCULAR HEMOGLOBIN 26 pg (27-31); MEAN CORPUSCULAR HGB CONC 32 g/dL (33-37); MEAN CORPUSCULAR VOLUME 81 fL (80-94); MONOCYTES % (AUTO) 10.3 % (1.7-9.3); NEUTROPHILS # (AUTO) 6.6 K/uL (1.8-7.7); NEUTROPHILS % (AUTO) 68.6 % (42.2-75.2); PLATELET COUNT (AUTO) 346 K/uL (140-450); RED BLOOD CELL COUNT(AUTO) 3.98 MIL/uL (4.20-6.10); WHITE BLOOD COUNT (AUTO) 9.6 K/uL (4.8-10.8)
[2017-11-11] MEDS ORDERED: FERR75LI22 GT (21:00)
[2017-11-11] MEDS ORDERED: ONDANSETRON 4 MG/2 ML VIAL IVP PRN (21:00)
[2017-11-11] MEDS ORDERED: FAMO-90 GT (21:00)
[2017-11-11] MEDS ORDERED: BENZ1TAB42 GT (21:00)
[2017-11-11] MEDS ORDERED: ASCO500T45 GT (21:05)
[2017-11-11] MEDS ORDERED: PYRI50TA12 GT (21:05)
[2017-11-11] MEDS ORDERED: [UNRECOGNIZED DRUG - CODE] GT (21:05)
[2017-11-11] MEDS ORDERED: MOME0.051 NS (21:05)
[2017-11-11 21:08] LABS: ANION GAP 10.2 (8-16); CARBON DIOXIDE 29.7 mmol/L (21-32); CREATININE 0.7 mg/dL (0.7-1.3); POTASSIUM 3.9 mmol/L (3.5-5.1)
[2017-11-11] MEDS ORDERED: INSULIN LISPRO SLIDING SCALE 100 UNITS/ML VIAL SUBQ PRN (21:10)
[2017-11-11] MEDS ORDERED: DEXTROSE 50% 50 ML SYR IVP PRN (21:10)
--- NOTE | 2017-11-11 21:10 | NUR ---
Patient will be admitted to care of DR. ROJAS. Admited to TELE. Will go to room 113A. Belongings list completed. Report to ELIAS AZEVEDO.
[2017-11-11 21:12] LABS: PROTHROMBIN TIME 10.4 secs (10.8-13.4)
[2017-11-11 21:14] LABS: ALBUMIN 2.5 g/dL (3.4-5.0); TOTAL BILIRUBIN 0.2 mg/dL (0.0-1.0)
--- NOTE | 2017-11-11 21:15 | NUR ---
ADMITTED THIS 52 YEAR OLD MALE FROM ER [facility] WITH CC OF DISLODGE J-TUBE, ASSESSMENT DONE, PT APHASIC, HX OBTAINED FROM PREVIOUS ADMISSION AND MEDICAL RECORDS, VITAL SIGNS STABLE, FLACC-0, G-TUBE AND LEFT J-TUBE IN PLACE COVERED WITH ABDOMINAL BINDER, DERMATITIS NOTED TO BUTTOCKS AND PERINEAL AREA, PT UNABLE TO FOLLOW COMMANDS, MITTENS APPLIED TO BOTH HANDS, SEIZURE PRECAUTION IN PLACE, SIDE RAILS UP AND PADDED, BED ALARM ON, ON CONTACT ISOLATION FOR HX OF MRSA NARES AND BLOOD, CALL LIGHT WITHIN REACH.
[2017-11-11 21:30] VITALS: BP 108/76
[2017-11-11] MEDS: DEXT 5% / NACL 0.45% 1,000 ML IV SCH (21:47)
[2017-11-11] MEDS: GLYCOPYRROLATE 1 MG TAB GT SCH (21:56)
[2017-11-11] MEDS: LORazepam 1 MG TAB GT SCH (21:56)
[2017-11-11] MEDS: BENZTROPINE 1 MG TAB GT SCH (21:56)
--- NOTE | 2017-11-11 22:00 | NUR ---
G-TUBE FLUSHES GOOD, NO DRAINAGE NOTED, J-TUBE CLOGGED, UNABLE TO FLUSH, JEFF GAUZE APPLIED, DUE MEDS GIVEN VIA G-TUBE ORDERED, ALL NEEDS ANTICIPATED.
[2017-11-11 22:01] LABS: PROTHROMBIN TIME 10.4 secs (10.8-13.4)
[2017-11-11 22:06] LABS: PHOSPHORUS 1.3 mg/dL (2.5-4.9)
--- NOTE | 2017-11-11 23:40 | NUR ---
SEEN PT SLEEPING, AROUSABLE TO TOUCH, VITAL SIGNS STABLE, NO SIGNS OF PAIN, IVF INFUSING WELL, SIDE RAILS UP AND BED ALARM ON, CONTINUE TO MONITOR CLOSELY.
[2017-11-12] VITALS: BP 94/61
--- NOTE | 2017-11-12 02:20 | NUR ---
IV LINE INFILTRATED, NEW IV LINE INSERTED TO LEFT FOREARM, IVF RESUMED, CONDOM CATH NOT STAYING PUT DUE TO PT MOVING TOO MUCH, UNABLE TO COLLECT URINE FOR TEST AT THIS TIME, MONITORED CLOSELY.
[2017-11-12 04:00] VITALS: BP 90/62
[2017-11-12] MEDS: LORazepam 1 MG TAB GT SCH ×3 (04:30→20:30)
--- NOTE | 2017-11-12 04:30 | NUR ---
PT SLEEPING, BP-94/59, DUE ATIVAN NOT GIVEN DUE TO LOW BLOOD PRESSURE, MONITORED CLOSELY.
--- NOTE | 2017-11-12 05:40 | NUR ---
CHEST X-RAY DONE, BLOOD SUGAR CHECKED WITH 124 RESULT, IVF INFUSING WELL, MITTEN TO BOTH HANDS, ABDOMINAL BINDER IN PLACE, MONITORED CLOSELY.
[2017-11-12] MEDS: BLOOD GLUCOSE MONITORING 1 DEV DEV FS SCH ×4 (06:37→20:35)
[2017-11-12 06:51] LABS: BASOPHILS # (AUTO) 0.1 K/uL (0.00-0.22); BASOPHILS % (AUTO) 0.9 % (0.0-2.0); EOSINOPHILS # (AUTO) 0.3 K/uL (0-0.4); EOSINOPHILS % (AUTO) 3.9 % (0.0-4.0); HEMATOCRIT 32.2 % (36-52); HEMOGLOBIN 10.4 g/dL (12.0-18.0); LYMPHOCYTES # (AUTO) 1.6 K/uL (2.0-11.5); LYMPHOCYTES % (AUTO) 21.5 % (20.5-51.1); MEAN CORPUSCULAR HEMOGLOBIN 27 pg (27-31); MEAN CORPUSCULAR HGB CONC 32 g/dL (33-37); MEAN CORPUSCULAR VOLUME 82 fL (80-94); MONOCYTES # (AUTO) 0.9 K/uL (0.8-1.0); MONOCYTES % (AUTO) 11.7 % (1.7-9.3); NEUTROPHILS # (AUTO) 4.5 K/uL (1.8-7.7); PLATELET COUNT (AUTO) 336 K/uL (140-450); RED BLOOD CELL COUNT(AUTO) 3.91 MIL/uL (4.20-6.10); RED CELL DISTRIBUTION WIDTH 13.8 % (11.6-13.7); WHITE BLOOD COUNT (AUTO) 7.4 K/uL (4.8-10.8)
[2017-11-12 07:15] LABS: ANION GAP 8.3 (8-16); CARBON DIOXIDE 31.2 mmol/L (21-32); CREATININE 0.7 mg/dL (0.7-1.3); POTASSIUM 4.5 mmol/L (3.5-5.1)
[2017-11-12 07:19] LABS: MAGNESIUM 1.9 mg/dL (1.8-2.4); PHOSPHORUS 1.8 mg/dL (2.5-4.9)
--- NOTE | 2017-11-12 07:30 | NUR ---
PT AWAKE, NO SIGNS OF DISTRESS, REPORT GIVEN TO RN PAGE FOR CONTINUITY OF CARE.
--- NOTE | 2017-11-12 07:35 | NUR ---
REPORT RECEIVED FROM CHEESE GRADER, PT RESTING QUIETLY IN NAD, RESP EVEN UNLABORED, SKIN WARM DRY COLOR WNL, PT APPEARS IN NO PAIN OR DISCOMFORT, PLAN OF CARE REVIEWED, CALL MELO WITHIN REACH, SIDE RAILS UP, BED LOCKED IN LOW POSITION. WILL CONTINUE TO MONITOR.
[2017-11-12 08:00] VITALS: BP 102/60
--- NOTE | 2017-11-12 09:00 | NUR ---
DR WALLIS AT BEDSIDE.
[2017-11-12] MEDS: BENZTROPINE 1 MG TAB GT SCH ×2 (09:02→20:30)
[2017-11-12] MEDS: Z-GUARD PASTE TP SCH (09:03)
[2017-11-12] MEDS: HALOPERIDOL 1 MG TAB GT SCH ×3 (09:03→16:12)
[2017-11-12] MEDS: GLYCOPYRROLATE 1 MG TAB GT SCH ×2 (09:03→20:30)
[2017-11-12] MEDS: DEXT 5% / NACL 0.45% 1,000 ML IV SCH ×3 (09:07→20:31)
--- NOTE | 2017-11-12 09:12 | NUR ---
PATIENT HAS BEEN SCREENED AND CATEGORIZED HIGH NUTRITION RISK. PATIENT WILL BE SEEN WITHIN 1-2 DAYS OF ADMISSION. 11/11/17-11/12/[address]
--- NOTE | 2017-11-12 10:45 | NUR ---
BED BATH DONE, PERICARE DONE, DIAPER CHANGED, GOWN CHANGED, LINEN CHANGED, PT ERIC WELL.
[2017-11-12 12:00] VITALS: BP 145/62
--- NOTE | 2017-11-12 12:21 | NUR ---
VITALS DONE, DUE MEDS GIVEN VIA GT, CLARIFIED BY DR RABAGO, IT'S OK TO USE G TUBE FOR MEDICATION, WILL CONTINUE TO MONITOR.
--- NOTE | 2017-11-12 14:00 | NUR ---
PER PREVIOUS CM NOTES, CONSENT TO BE SIGNED BY 2 MD's, PT HAS NO CONSERVATOR, NO FAMILY TO CONSENT FOR HIS PROCEDURES, DR RABAGO MADE AWARE.
[2017-11-12 16:00] VITALS: BP 92/71
[2017-11-12] MEDS: SODIUM PHOS / POTASSIUM PHOS 1 PKT PDR GT SCH (16:12)
--- NOTE | 2017-11-12 16:30 | NUR ---
STRAIGHT CATH WITH 14F, LOUISE COLOR URINE COLLECTED, SENT TO LAB FOR UA AND CX, PT ERIC, WELL, PERICARE DONE, DUE MEDS GIVEN WILL CONTINUE TO MONITOR
--- NOTE | 2017-11-12 16:34 | NUR ---
11/12/17 RD INITIAL ASSESSMENT COMPLETED PLEASE REFER TO NUTRITION ASSESSMENT UNDER CARE ACTIVITY FOR ESTIMATED NUTRITIONAL NEEDS. 1. INITIATE TUBE FEEDS TOLERATED ONCE J-TUBE REPLACED 2. RD TO FOLLOW-UP 2-3 DAYS, HIGH RISK TAM ARDON RD
[2017-11-12 17:12] LABS: APPEARANCE,URINE CLEAR (CLEAR); BILIRUBIN,URINE NEGATIVE (NEGATIVE); BLOOD, URINE NEGATIVE (NEGATIVE); COLOR,URINE YELLOW (YELLOW); LEUKOCYTE ESTERASE ,URINE NEGATIVE (NEGATIVE); NITRITE, URINE NEGATIVE (NEGATIVE); PH,URINE 7.5 (5.0-9.0); UGLUCOSE NEGATIVE (NEGATIVE)
--- NOTE | 2017-11-12 19:20 | NUR ---
REPORT GIVEN TO SHEET MANUFACTURING SUPERVISOR NURSE, PT IN STABLE CONDITION.
--- NOTE | 2017-11-12 19:25 | NUR ---
RECEIVED PT AWAKE, APHASIC, VITAL SIGNS STABLE, FLACC-0, ABDOMINAL BINDER IN PLACE, G-TUBE AND J-TUBE INTACT, NPO STATUS, IVF INFUSING WELL, MITTENS TO BOTH HANDS, SIDE RAILS UP AND PADDED FOR SEIZURE PRECAUTION, BED ALARM ON, SCD'S IN PLACE, MAINTAINED ON CONTACT ISOLATION, CALL LIGHT WITHIN REACH.
[2017-11-12 20:00] VITALS: BP 102/64
--- NOTE | 2017-11-12 20:40 | NUR ---
DUE MEDS GIVEN THROUGH G-TUBE, NO DRAINAGE NOTED, REPOSITIONED AND OFFLOAD PRESSURE AREAS, ALL NEEDS ANTICIPATED.
[2017-11-13] VITALS: BP 106/63
--- NOTE | 2017-11-13 | NUR ---
PT SLEEPING, EASILY AROUSABLE, VITAL SIGNS STABLE, FLACC-0, IVF INFUSING WELL, MAINTAINED ON NPO, NO SEIZURE EPISODE NOTED, CONTINUE TO MONITOR CLOSELY.
[2017-11-13] MEDS: DEXT 5% / NACL 0.45% 1,000 ML IV SCH ×5 (03:00→23:00)
[2017-11-13] MEDS: LORazepam 1 MG TAB GT SCH ×3 (04:36→20:52)
--- NOTE | 2017-11-13 04:40 | NUR ---
PT AWAKE, NO SIGNS OF DISTRESS, DUE ATIVAN GIVEN THROUGH G-TUBE, NO DRAINAGE NOTED, FOR REVISION OF JEJUNOSTOMY TODAY, IVF INFUSING WELL, MONITORED CLOSELY.
--- NOTE | 2017-11-13 05:40 | NUR ---
PT SEEN WITH BROWNISH VOMITUS MODERATE AMOUNT ON HIS GOWN, SPONGE BATH DONE BY BIBI RICHARDSON, MEDICATED WITH ZOFRAN IVP PRN, BLOOD SUGAR CHECKED WITH 121 RESULT, MAINTAINED ON NPO, IVF INFUSING WELL, KEEP HOB ELEVATED, MONITORED CLOSELY.
[2017-11-13 06:46] LABS: BASOPHILS # (AUTO) 0.1 K/uL (0.00-0.22); BASOPHILS % (AUTO) 1.1 % (0.0-2.0); EOSINOPHILS # (AUTO) 0.3 K/uL (0-0.4); EOSINOPHILS % (AUTO) 3.4 % (0.0-4.0); HEMATOCRIT 30.3 % (36-52); LYMPHOCYTES % (AUTO) 11.5 % (20.5-51.1); MEAN CORPUSCULAR HEMOGLOBIN 26 pg (27-31); MEAN CORPUSCULAR HGB CONC 33 g/dL (33-37); MEAN CORPUSCULAR VOLUME 80 fL (80-94); MONOCYTES # (AUTO) 0.9 K/uL (0.8-1.0); MONOCYTES % (AUTO) 10.3 % (1.7-9.3); NEUTROPHILS # (AUTO) 6.7 K/uL (1.8-7.7); NEUTROPHILS % (AUTO) 73.7 % (42.2-75.2); PLATELET COUNT (AUTO) 374 K/uL (140-450); RED BLOOD CELL COUNT(AUTO) 3.79 MIL/uL (4.20-6.10)
[2017-11-13] MEDS: BLOOD GLUCOSE MONITORING 1 DEV DEV FS SCH ×4 (06:48→20:51)
[2017-11-13 07:11] LABS: MAGNESIUM 1.7 mg/dL (1.8-2.4); PHOSPHORUS 3.3 mg/dL (2.5-4.9)
--- NOTE | 2017-11-13 07:15 | NUR ---
ENDORSEMENT RECEIVED FROM PERSONNEL SECURITY SPECIALIST NURSE. PATIENT'S RESPIRATION EVEN, UNLABOR. SKIN DRY AND WARM. IV PATENT AND INTACT. BED AT LOW POSITION WITH SIDE RAILS ARE UP. NO DISTRESS NOTED AT THIS TIME. FLACC 0. CALL LIGHT WITHIN REACH. WILL CONTINUE TO MONITOR
--- NOTE | 2017-11-13 07:15 | NUR ---
PT SLEEPING, EASILY AROUSABLE, NO SIGNS OF DISTRESS, REPORT GIVEN TO RN LENA FOR CONTINUITY OF CARE.
[2017-11-13 08:00] VITALS: BP 106/67
[2017-11-13] MEDS: SODIUM PHOS / POTASSIUM PHOS 1 PKT PDR GT SCH ×2 (09:32→12:24)
[2017-11-13] MEDS: BENZTROPINE 1 MG TAB GT SCH ×2 (09:32→20:53)
[2017-11-13] MEDS: Z-GUARD PASTE TP SCH (09:32)
[2017-11-13] MEDS: HALOPERIDOL 1 MG TAB GT SCH ×3 (09:32→16:47)
[2017-11-13] MEDS: GLYCOPYRROLATE 1 MG TAB GT SCH ×2 (09:32→20:52)
[2017-11-13] MEDS ORDERED: MAG SULF 2000 MG/WATER PREMIX 50 ML IV SCH (10:16)
--- NOTE | 2017-11-13 14:45 | NUR ---
PATIENT IS AWAKE. RESPIRATION EVEN, UNLABOR. PATIENT WAS CLEANED UP. Z GUARD WAS APPLIED TO THE PERINEAL AREA AND BUTTOCK
[2017-11-13 16:00] VITALS: BP 93/70
[2017-11-13] MEDS: MUPIROCIN 2% OINT 22 GM TUBE TP SCH (16:36)
[2017-11-13] MEDS: CHLORHEXADINE GLUC 2% CLOTH TP SCH (16:37)
--- NOTE | 2017-11-13 17:15 | NUR ---
PATIENT IS AWAKE. RESPONSIVE TO STIMULI. RESPIRATION EVEN, UNLABOR. IV PATENT, INTACT. NO DISTRESS NOTED. FLACC 0. CALL LIGHT WITHIN REACH.
--- NOTE | 2017-11-13 19:15 | NUR ---
ENDORSEMENT GIVEN TO THE NIGHT WORKER NURSE. PATIENT IS STABLE AT THIS TIME
--- NOTE | 2017-11-13 19:16 | NUR ---
RECD. RESTING IN BED, AWAKE, APHASIC, MENTALLY CHALLENGED, UNABLE TO FOLLOW COMMANDS. RESPIRATION EVEN AND UNLABORED. IV OF D5 1/2 NS AT 100 ML/HR INFUSING, LEFT FOREARM G22. MITTENS ON BILATERAL HANDS, TO PREVENT PULLING ON LINES. G TUBE AND J TUBE COVERED WITH ABDOMINAL BINDER. REORIENTED TO HOSPITAL SETTING AND CARE FOR THE SHIFT. SAFETY MEASURES ENFORCED. ON BILATERAL LEG SEQUENTIALS. NO APPEARANCE OF PAIN NOTED, FLACC -0.
--- NOTE | 2017-11-13 20:52 | NUR ---
AWAKE IN BED, DUE MEDICATIONS FOR THE NIGHT GIVEN BY GT.
--- NOTE | 2017-11-13 21:30 | NUR ---
REPOSITIONED IN BED FOR COMFORT WITH PILLOWS.
--- NOTE | 2017-11-13 22:30 | NUR ---
SLEEPING COMFORTABLY IN BED.
[2017-11-14] VITALS: BP 113/66
--- NOTE | 2017-11-14 02:00 | NUR ---
AWAKE, REPOSITIONED IN BED. ADVISED TO GO BACK TO SLEEP.
--- NOTE | 2017-11-14 04:00 | NUR ---
SLEEPING COMFORTABLY IN BED.
[2017-11-14] MEDS: LORazepam 1 MG TAB GT SCH ×3 (05:25→20:43)
[2017-11-14] MEDS: BLOOD GLUCOSE MONITORING 1 DEV DEV FS SCH ×4 (05:37→20:42)
--- NOTE | 2017-11-14 06:50 | NUR ---
CONDITION REMAIN STABLE. SAFETY MAINTAINED DURING THE SHIFT. WILL ENDORSED TO AM NURSE FOR CONTINUITY OF CARE.
--- NOTE | 2017-11-14 07:10 | NUR ---
RECEIVED REPORT FROM WASHER AND CRUSHER TENDER NURSE, PT IS A/OX1, APHASIC, RESTING IN BED, UNABLE TO AMBULATE, PT HAS IV ON THE LEFT FA, PATENT, INTACT, FLUSHING WELL, PT HAS INCONTINENT DERMATITIS ON PERINEAL AREA, PT HAS BILATERAL UPPER AND LOWER EXTREMITY CONTRACTURES, NO S/S OF RESPIRATORY DISTRESS OR DISCOMFORT NOTED, DISCUSSED PLAN OF CARE WITH PT, PT UNABLE TO VERBALIZE UNDERSTANDING, SAFETY/FALL PRECAUTIONS ARE IN PLACE, CALL LIGHT IS WITHIN REACH, WILL CONTINUE TO MONITOR. Addendum: 11/14/17 at 1201 by Kyra Flood RN PT HAS G-TUBE IN PLACE, PATENT, INTACT, FLUSHING WELL, J-TUBE IS NOT BEING USED DUE DISLODGEMENT.
[2017-11-14 08:00] VITALS: BP 118/72
[2017-11-14] MEDS: BENZTROPINE 1 MG TAB GT SCH ×2 (08:50→20:43)
[2017-11-14] MEDS: GLYCOPYRROLATE 1 MG TAB GT SCH ×2 (08:50→20:43)
--- NOTE | 2017-11-14 08:50 | NUR ---
DUE MEDICATIONS GIVEN, PT TOLERATED WELL. PT RESTING IN BED, SEMI FOWLERS POSITION.
[2017-11-14] MEDS: HALOPERIDOL 1 MG TAB GT SCH ×3 (08:51→16:20)
[2017-11-14] MEDS: DEXT 5% / NACL 0.45% 1,000 ML IV SCH ×2 (08:51→19:24)
[2017-11-14] MEDS: Z-GUARD PASTE TP SCH (08:52)
[2017-11-14] MEDS ORDERED: BACITRACIN OINT 500 UNITS/GM PKT TP SCH (09:00)
--- NOTE | 2017-11-14 11:29 | NUR ---
PT SLEEPING IN BED AT THIS TIME, CALL LIGHT WITHIN REACH.
--- NOTE | 2017-11-14 13:00 | NUR ---
DUE ATIVAN AND HALDOL HELD, PT IS DROWSY/SLEEPY AT THIS TIME.
--- NOTE | 2017-11-14 14:26 | NUR ---
PT RESTING IN BED, NO S/S OF RESPIRATORY DISTRESS OR DISCOMFORT NOTED.
[2017-11-14 16:00] VITALS: BP 106/70
[2017-11-14] MEDS: MUPIROCIN 2% OINT 22 GM TUBE TP SCH (16:21)
[2017-11-14] MEDS: CHLORHEXADINE GLUC 2% CLOTH TP SCH (16:21)
--- NOTE | 2017-11-14 18:27 | NUR ---
PT IS RESTING IN BED, CALL LIGHT WITHIN REACH.
--- NOTE | 2017-11-14 19:20 | NUR ---
ENDORSED PT TO DAMAGE ADJUSTER NURSE FOR CONTINUITY OF CARE, PT STABLE AT THIS TIME.
--- NOTE | 2017-11-14 19:21 | NUR ---
PATIENT IS CURRENTLY RESTING IN BED AWAKE AND NON VERBAL WITH BILATERAL MITTENS IN PLACE TO PREVENT FROM DISLODGING LINES.PATIENT IS INCONTINENT AND CONTINUES TO BE CLEANED GOOD PERINEAL CARE GIVEN AND OFFLOADING WITH PILLOWS DONE.FREQUENT VISUAL CHECKS DONE AND WILL CONTINUE TO PUT BED ALARM ON.
[2017-11-14 20:00] VITALS: BP 113/76
--- NOTE | 2017-11-14 21:30 | NUR ---
PATIENT IS CURRENTLY AWAKE RESTING IN BED WAS TURNED AND REPOSITIONED NO PAIN OR DISCOMFORT NOTED.WILL CONTINUE TO MONITOR.
--- NOTE | 2017-11-14 23:15 | NUR ---
PATIENT SLEEPING IN BED COMFORTABLY WILL CONTINUE TO MONITOR.BED ALARM ON.IVF INFUSING WELL IV SITE REMAINS PATENT.
--- NOTE | 2017-11-15 01:25 | NUR ---
PATIENT SLEEPING IN BED NO DISTRESS WILL CONTINUE TO MONITOR.CALL LIGHT WITHIN REACH AND FREQUENT VISUAL CHECKS DONE.
--- NOTE | 2017-11-15 03:38 | NUR ---
PATIENT IS CURRENTLY RESTING IN BED SLEEPING ASSISTED TO TURN AND REPOSITIONED FOR COMFORT.FREQUENT VISUAL CHECKS DONE WILL CONTINUE TO MONITOR.
--- NOTE | 2017-11-15 04:38 | NUR ---
PATIENT IS CURRENTLY RESTING IN BED CONTINUES TO BE TURNED AND REPOSITIONED FOR COMFORT.IVF INFUSING WELL IV SITE PATENT.CALL LIGHT AND FREQUENT VISUAL CHECKS DONE.WILL CONTINUE TO MONITOR.
[2017-11-15] MEDS: LORazepam 1 MG TAB GT SCH ×3 (05:00→20:27)
[2017-11-15] MEDS: DEXT 5% / NACL 0.45% 1,000 ML IV SCH ×2 (05:56→17:00)
[2017-11-15] MEDS: BLOOD GLUCOSE MONITORING 1 DEV DEV FS SCH ×4 (06:12→20:27)
--- NOTE | 2017-11-15 06:37 | NUR ---
PATIENT IS CURRENTLY ASLEEP IN BED HAS WARM BLANKETS AND NEEDS ARE MET PATIENT CONTINUES TO BE CLEAN AND DRY.WILL CONTINUE TO MONITOR.CALL LIGHT WITHIN REACH.
[2017-11-15 06:48] LABS: BASOPHILS # (AUTO) 0.1 K/uL (0.00-0.22); BASOPHILS % (AUTO) 1.2 % (0.0-2.0); EOSINOPHILS # (AUTO) 0.3 K/uL (0-0.4); EOSINOPHILS % (AUTO) 2.9 % (0.0-4.0); HEMATOCRIT 31.1 % (36-52); HEMOGLOBIN 10.1 g/dL (12.0-18.0); LYMPHOCYTES # (AUTO) 1.3 K/uL (2.0-11.5); LYMPHOCYTES % (AUTO) 14.6 % (20.5-51.1); MEAN CORPUSCULAR HEMOGLOBIN 26 pg (27-31); MEAN CORPUSCULAR HGB CONC 33 g/dL (33-37); MEAN CORPUSCULAR VOLUME 80 fL (80-94); MONOCYTES % (AUTO) 11.4 % (1.7-9.3); NEUTROPHILS # (AUTO) 6.4 K/uL (1.8-7.7); NEUTROPHILS % (AUTO) 69.9 % (42.2-75.2); PLATELET COUNT (AUTO) 419 K/uL (140-450); RED BLOOD CELL COUNT(AUTO) 3.87 MIL/uL (4.20-6.10); RED CELL DISTRIBUTION WIDTH 13.7 % (11.6-13.7); WHITE BLOOD COUNT (AUTO) 9.1 K/uL (4.8-10.8)
[2017-11-15 06:53] LABS: CARBON DIOXIDE 28.5 mmol/L (21-32); CREATININE 0.6 mg/dL (0.7-1.3); POTASSIUM 3.5 mmol/L (3.5-5.1)
[2017-11-15 07:08] LABS: MAGNESIUM 1.9 mg/dL (1.8-2.4)
--- NOTE | 2017-11-15 07:28 | NUR ---
PATIENT STABLE REPORT ENDORSED TO ROBERTO CARLOS ZAMORA AT BEDSIDE PATIENT SLEEPING.
--- NOTE | 2017-11-15 07:30 | NUR ---
RECEIVED REPORT FROM DIRECTOR TRADE NURSE, PT IS A/OX1, APHASIC, RESTING IN BED, UNABLE TO AMBULATE, PT HAS IV ON THE LEFT FA, PATENT, INTACT, FLUSHING WELL, PT HAS INCONTINENT DERMATITIS ON PERINEAL AREA, PT HAS BILATERAL UPPER AND LOWER EXTREMITY CONTRACTURES, NO S/S OF RESPIRATORY DISTRESS OR DISCOMFORT NOTED, DISCUSSED PLAN OF CARE WITH PT, PT UNABLE TO VERBALIZE UNDERSTANDING, SAFETY/FALL PRECAUTIONS ARE IN PLACE, CALL LIGHT IS WITHIN REACH, WILL CONTINUE TO MONITOR.
[2017-11-15 08:00] VITALS: BP 104/67
--- NOTE | 2017-11-15 09:00 | NUR ---
GT RESIDUAL OF 40ML. MEDS GIVEN VIA G-TUBE. PT TOLERATED WELL. PT IS IN SEMI RUIZ POSITION.
[2017-11-15] MEDS: GLYCOPYRROLATE 1 MG TAB GT SCH ×2 (09:36→20:27)
[2017-11-15] MEDS: BENZTROPINE 1 MG TAB GT SCH ×2 (09:37→20:27)
[2017-11-15] MEDS: HALOPERIDOL 1 MG TAB GT SCH ×3 (09:37→17:16)
[2017-11-15] MEDS: Z-GUARD PASTE TP SCH (12:00)
--- NOTE | 2017-11-15 13:00 | NUR ---
CONSENT FOR J-TUBE REVISION FAXED TO [facility] [phone]
--- NOTE | 2017-11-15 15:45 | NUR ---
11/15/17 RD FOLLOW UP COMPLETED PLEASE REFER TO NUTRITION PROGRESS NOTE UNDER CARE ACTIVITY FOR ESTIMATED NUTRITION NEEDS. INITIATE TUBE FEEDS TOLERATED ONCE J-TUBE REPLACED, CONSIDER: DIABETISOURCE AC @ 20 ML/HR, INCREASE RATE BY 10 ML/HR EACH NURSING SHIFT TO GOAL RATE OF 55 ML/HR. FREE WATER, 100 ML 5 X/DAY THIS WILL PROVIDE 1584 KCALS, 79 GM PRO AND 1577 ML FLUID PER DAY, TO MEET >100% OF ESTIMATED KCAL, PRO AND FLUID NEEDS AND PROVIDE 31 KCALS/KG, 1.6 GM PRO/KG AND 31 ML FLUID/KG. 2. RD TO FOLLOW-UP 2-3 DAYS, HIGH RISK TAM ARDON RD
[2017-11-15 16:00] VITALS: BP 107/63
[2017-11-15] MEDS: MUPIROCIN 2% OINT 22 GM TUBE TP SCH (17:00)
[2017-11-15] MEDS: CHLORHEXADINE GLUC 2% CLOTH TP SCH (17:00)
--- NOTE | 2017-11-15 19:30 | NUR ---
PATIENT REPORT GIVEN TO FILM LOADER NURSE AT BEDSIDE. PATIENT IS IN STABLE CONDITION.
--- NOTE | 2017-11-15 19:40 | NUR ---
RECEIVED REPORT FROM AM NURSE. PT AWAKE, APHASIC, UNABLE TO FOLLOW SIMPLE INSTRUCTIONS, UNABLE TO VERBALIZE NEEDS, BEDBOUND, CONTRACTURES ON EXTREMITIES NOTED. GTUBE IN PLACE. DISPLACED JTUBE NOTED. ABD HERNIA NOTED, ADB BINDER IN PLACE. IV ACCESS ASYMPTOMATIC, PATENT AND INTACT. IVF INFUSING WELL. DISCUSSED AND REVIEWED PLAN OF CARE WITH PT. PT APHASIC, WILL CONTINUE WITH CONSTANT REINFORCEMENT. ALL NEEDS MET. SAFETY MEASURES ENSURED. CALL LIGHT WITHIN REACH. WILL CONTINUE TO MONITOR.
[2017-11-15 20:00] VITALS: BP 111/69
--- NOTE | 2017-11-15 20:30 | NUR ---
PT DIAPER INCONTINENT IN URINE, PT CLEANED, TURNED AND REPOSITIONED BY CNAs, OFFLOADED PRESSURE AREAS. PT TOLERATED WELL. GTUBE PLACEMENT VERIFIED, RESIDUAL 1ML, ADMINISTERED DUE MEDS VIA GTUBE. BLOOD GLUCOSE 102, NO INSULIN COVERAGE. IVF INFUSING WELL. ALL NEEDS MET. BED ALARM AND SAFETY MEASURES ENSURED. CALL LIGHT WITHIN REACH. WILL CONTINUE TO MONITOR.
--- NOTE | 2017-11-15 23:00 | NUR ---
CALLED DR ZURITA, DISCUSSED DX DISLODGED J TUBE, MADE AWARE THAT PT CONSENT FOR REVISION OF JTUBE HAS NOT BEEN SIGNED DUE TO PT APHASIC, MADE MD AWARE THAT PT HAS SISTER VIC MARSHALL LISTED PERSON TO NOTIFY, MD STATED THAT OBTAINING CONSENT CAN WAIT AT THIS TIME DUE TO PATIENT NOT HAVING SURGERY TOMORROW BUT POSSIBLY ON SATURDAY 11/[address] WALLIS SICK AT THIS TIME. ALSO MADE AWARE OF NA 135 AND CL 103 IN THE AM, MAINTENANCE FLUIDS D5-1/2 NS AT THIS TIME, NO CHANGE IN ORDERS
--- NOTE | 2017-11-15 23:45 | NUR ---
PT SLEEPING COMFORTABLY, FLACC 0, NO S/S OF ACUTE DISTRESS. PT CLEAN AND DRY, ZGUARD APPLIED TO LÁZARO AREA AND SACRUM, PT TURNED AND REPOSITIONED, OFFLOADED PRESSURE AREAS. ALL NEEDS MET. IVF INFUSING WELL. SAFETY MEASURES ENSURED. CALL LIGHT WITHIN REACH. WILL CONTINUE TO MONITOR.
[2017-11-16] VITALS: BP 103/57
[2017-11-16] MEDS: DEXT 5% / NACL 0.45% 1,000 ML IV SCH ×3 (01:00→21:58)
--- NOTE | 2017-11-16 02:00 | NUR ---
PT SLEEPING COMFORTABLY, FLACC 0, NO S/S OF ACUTE DISTRESS. PT CLEAN AND DRY, PT REPOSITIONED, OFFLOADED PRESSURE AREAS. ALL NEEDS MET. IVF INFUSING WELL. SAFETY MEASURES ENSURED. CALL LIGHT WITHIN REACH. WILL CONTINUE TO MONITOR.
[2017-11-16] MEDS: LORazepam 1 MG TAB GT SCH ×3 (04:30→20:59)
--- NOTE | 2017-11-16 04:30 | NUR ---
PT AWAKE, PT INCONTINENT IN URINE AND HAD SMALL SOLID DARK GREEN BM, PT CLEANED, TURNED AND REPOSITIONED, OFFLOADED PRESSURE AREAS. ORAL CARE PROVIDED. PT TOLERATED WELL. GTUBE PLACEMENT VERIFIED, RESIDUAL 180ML, BROWN FOUL-SMELLING WITH MUCUS, ADMINISTERED DUE MED ATIVAN GT WHILE RETURNING RESIDUAL. CALLED DR ZURITA, MADE AWARE OF PT'S BM AND RESIDUAL.
[2017-11-16] MEDS: BLOOD GLUCOSE MONITORING 1 DEV DEV FS SCH ×3 (06:28→20:58)
--- NOTE | 2017-11-16 07:15 | NUR ---
ENDORSED PLAN OF CARE TO AM NURSE. CONDITION STABLE.
--- NOTE | 2017-11-16 07:16 | NUR ---
RECEIVED REPORT FROM BLOCK OUT MACHINE OPERATOR NURSE ARABELLA AT BEDSIDE FOR CONTINUITY OF CARE. PT IS AWAKE, NON VERBAL. INTRODUCED SELF AND UPDATED BOARD. PT IN NO SIGNS OF DISTRESS. BED IN LOW POSITION, WHEELS LOCKED, CALL LIGHT WITHIN REACH. WILL CONTINUE TO MONITOR.
[2017-11-16 07:24] LABS: ANION GAP 11.6 (8-16); CARBON DIOXIDE 27.9 mmol/L (21-32); CREATININE 0.7 mg/dL (0.7-1.3); POTASSIUM 3.5 mmol/L (3.5-5.1)
[2017-11-16 07:38] LABS: BASOPHILS # (AUTO) 0.1 K/uL (0.00-0.22); BASOPHILS % (AUTO) 0.5 % (0.0-2.0); EOSINOPHILS # (AUTO) 0.1 K/uL (0-0.4); EOSINOPHILS % (AUTO) 1.2 % (0.0-4.0); HEMOGLOBIN 10.3 g/dL (12.0-18.0); LYMPHOCYTES % (AUTO) 8.3 % (20.5-51.1); MEAN CORPUSCULAR HEMOGLOBIN 27 pg (27-31); MEAN CORPUSCULAR HGB CONC 33 g/dL (33-37); MEAN CORPUSCULAR VOLUME 81 fL (80-94); MONOCYTES # (AUTO) 0.8 K/uL (0.8-1.0); MONOCYTES % (AUTO) 6.6 % (1.7-9.3); NEUTROPHILS # (AUTO) 10.2 K/uL (1.8-7.7); NEUTROPHILS % (AUTO) 83.4 % (42.2-75.2); PLATELET COUNT (AUTO) 425 K/uL (140-450); RED BLOOD CELL COUNT(AUTO) 3.84 MIL/uL (4.20-6.10); RED CELL DISTRIBUTION WIDTH 13.5 % (11.6-13.7); WHITE BLOOD COUNT (AUTO) 12.2 K/uL (4.8-10.8)
[2017-11-16 08:00] VITALS: BP 109/66
[2017-11-16] MEDS: Z-GUARD PASTE TP SCH (09:00)
[2017-11-16] MEDS: HALOPERIDOL 1 MG TAB GT SCH ×2 (10:57→17:24)
[2017-11-16] MEDS: GLYCOPYRROLATE 1 MG TAB GT SCH ×2 (10:57→20:59)
[2017-11-16] MEDS: BENZTROPINE 1 MG TAB GT SCH ×2 (10:57→20:59)
--- NOTE | 2017-11-16 15:11 | NUR ---
CHECKED ON PT IN ROOM. PT HAD INCONTINENT URINE. CHANGED LINENS AND GOWN. REPOSITIONED PT TO RIGHT SIDE. NO SIGNS OF DISTRESS. WILL CONTINUE TO MONITOR.
[2017-11-16 16:00] VITALS: BP 105/64
[2017-11-16] MEDS: CHLORHEXADINE GLUC 2% CLOTH TP SCH (16:00)
[2017-11-16] MEDS: MUPIROCIN 2% OINT 22 GM TUBE TP SCH (16:00)
[2017-11-16] MEDS ORDERED: DEXTROSE 50% 50 ML SYR IVP PRN (17:00)
[2017-11-16] MEDS ORDERED: INSULIN LISPRO SLIDING SCALE 100 UNITS/ML VIAL SUBQ PRN (17:00)
[2017-11-16] MEDS ORDERED: ONDANSETRON 4 MG/2 ML VIAL IVP PRN (17:00)
--- NOTE | 2017-11-16 19:15 | NUR ---
ENDORSED PT TO TENNIS CAMP INSTRUCTOR NURSE AT BEDSIDE FOR CONTINUITY OF CARE. PT IN STABLE CONDITION.
--- NOTE | 2017-11-16 19:16 | NUR ---
RECEIVED REPORT AT BEDSIDE FROM DAY SHIFT RN. PT A/OX1 ON ROOM AIR. PT HAS A 22G IV TO RIGHT HAND, INFUSING D5 0.45%NS@100ML/HR. SKIN INTACT. SAFETY PRECAUTIONS IN PLACE. UPDATED BOARD. VITAL SIGNS WITHIN NORMAL LIMITS. PT IN STABLE CONDITION, NO SIGNS OF DISTRESS NOTED. BED IN LOW POSITION, CALL LIGHT WITHIN REACH. WILL CONTINUE TO MONITOR.
--- NOTE | 2017-11-16 21:02 | NUR ---
ADMINISTERED SCHEDULED MEDICATIONS, PT TOLERATED WELL. NO RESIDUAL, FLUSHED WITH 30ML WATER.
[2017-11-17 00:17] VITALS: BP 106/65
--- NOTE | 2017-11-17 00:20 | NUR ---
VITAL SIGNS WITHIN NORMAL LIMITS. PT IN STABLE CONDITION, NO SIGNS OF DISTRESS NOTED. BED IN LOW POSITION, CALL LIGHT WITHIN REACH. WILL CONTINUE TO MONITOR.
[2017-11-17] MEDS: LORazepam 1 MG TAB GT SCH ×3 (05:11→20:20)
[2017-11-17] MEDS: BLOOD GLUCOSE MONITORING 1 DEV DEV FS SCH ×4 (06:33→20:28)
[2017-11-17] MEDS: DEXT 5% / NACL 0.45% 1,000 ML IV SCH ×2 (06:34→11:56)
--- NOTE | 2017-11-17 07:25 | NUR ---
ENDORSED PT IN STABLE CONDITION TO DAY SHIFT RN FOR CONTINUITY OF CARE.
--- NOTE | 2017-11-17 07:30 | NUR ---
RECEIVED REPORT FROM ELECTRICIAN SHIP NURSE AT BEDSIDE. PT IS AWAKE, NON VERBAL. UPDATED BOARD.IV NOTED TO THE RIGHT FA WITH GAUZE DRESSING. INFUSING WELL. NO SIGNS OF DISTRESS NOTED. BED IN LOW POSITION, CALL LIGHT WITHIN REACH. WILL CONTINUE TO MONITOR.
[2017-11-17 07:40] LABS: BASOPHILS # (AUTO) 0.1 K/uL (0.00-0.22); BASOPHILS % (AUTO) 1.3 % (0.0-2.0); EOSINOPHILS # (AUTO) 0.2 K/uL (0-0.4); EOSINOPHILS % (AUTO) 1.8 % (0.0-4.0); HEMATOCRIT 31.7 % (36-52); HEMOGLOBIN 10.4 g/dL (12.0-18.0); LYMPHOCYTES # (AUTO) 1.6 K/uL (2.0-11.5); LYMPHOCYTES % (AUTO) 14.4 % (20.5-51.1); MEAN CORPUSCULAR HEMOGLOBIN 27 pg (27-31); MEAN CORPUSCULAR HGB CONC 33 g/dL (33-37); MEAN CORPUSCULAR VOLUME 81 fL (80-94); MONOCYTES # (AUTO) 0.9 K/uL (0.8-1.0); NEUTROPHILS # (AUTO) 8.3 K/uL (1.8-7.7); NEUTROPHILS % (AUTO) 74.5 % (42.2-75.2); PLATELET COUNT (AUTO) 439 K/uL (140-450); RED BLOOD CELL COUNT(AUTO) 3.92 MIL/uL (4.20-6.10); RED CELL DISTRIBUTION WIDTH 13.1 % (11.6-13.7); WHITE BLOOD COUNT (AUTO) 11.1 K/uL (4.8-10.8)
[2017-11-17 07:47] LABS: ANION GAP 9.1 (8-16); CARBON DIOXIDE 29.4 mmol/L (21-32); CREATININE 0.8 mg/dL (0.7-1.3); POTASSIUM 3.5 mmol/L (3.5-5.1)
[2017-11-17 07:57] LABS: MAGNESIUM 1.8 mg/dL (1.8-2.4); PHOSPHORUS 3.2 mg/dL (2.5-4.9)
[2017-11-17 08:00] VITALS: BP 99/68
[2017-11-17] MEDS: Z-GUARD PASTE TP SCH (09:00)
--- NOTE | 2017-11-17 09:50 | NUR ---
G TUBE ASPIRATED. 50ML RESIDUAL. MEDS GIVEN VIA G-TUBE. PT TOLERATED WELL. ORAL CARE PROVIDED.
[2017-11-17] MEDS: GLYCOPYRROLATE 1 MG TAB GT SCH ×2 (10:04→20:19)
[2017-11-17] MEDS: HALOPERIDOL 1 MG TAB GT SCH ×3 (10:04→16:45)
[2017-11-17] MEDS: BENZTROPINE 1 MG TAB GT SCH ×2 (10:04→20:19)
--- NOTE | 2017-11-17 10:41 | NUR ---
11/17/17 RD FOLLOW UP COMPLETED PLEASE REFER TO NUTRITION PROGRESS NOTE UNDER CARE ACTIVITY FOR ESTIMATED NUTRITION NEEDS. RD RECOMMENDATIONS: 1.ONCE MEDICALLY APPROPRIATE, PLEASE CONSIDER: DIABETISOURCE AC @ 20 ML/HR, INCREASE RATE BY 10 ML/HR EACH NURSING SHIFT TO GOAL RATE OF 55 ML/HR. FREE WATER, 100 ML 5 X/DAY, THIS WILL PROVIDE 1584 KCALS, 79 GM PRO AND 1577 ML FLUID PER DAY, TO MEET >100% OF ESTIMATED KCAL, PRO AND FLUID NEEDS AND PROVIDE 31 KCALS/KG, 1.6 GM PRO/KG AND 31 ML FLUID/KG. 2.RD TO FOLLOW-UP 2-3 DAYS, HIGH RISK BEATRICE HATCH, , RDN
--- NOTE | 2017-11-17 13:50 | NUR ---
Z-GUARD APPLIED TO L[place]O AREA. SKIN IS INTACT. BLANCHABLE PINK. PT MAY HAVE INCONTINENCE ASSOCIATED DERMATITIS.
[2017-11-17 16:00] VITALS: BP 107/64
[2017-11-17] MEDS: MUPIROCIN 2% OINT 22 GM TUBE TP SCH (16:45)
[2017-11-17] MEDS: CHLORHEXADINE GLUC 2% CLOTH TP SCH (16:45)
[2017-11-17] MEDS ORDERED: VIT-B COMP/VIT-C/FOLIC ACID 1 TAB GT SCH (18:15)
--- NOTE | 2017-11-17 18:34 | NUR ---
G TUBE AND J TUBE SITE RINSED WITH NS, PATTED DRY, DRESSING CHANGED.
--- NOTE | 2017-11-17 19:17 | NUR ---
ENDORSED PT TO REHANGER RN. PT IS IN STABLE CONDITION, NO DISTRESS NOTED.
--- NOTE | 2017-11-17 19:18 | NUR ---
RECEIVED REPORT AT BEDSIDE FROM DAY SHIFT RN. PT A/OX1 ON ROOM AIR. PT HAS A 22G IV TO RIGHT HAND, INFUSING D5 0.45%NS@100ML/HR. INCONTINENT DERMATITIS TO BUTTOCKS, BUT SKIN INTACT. DISLODGED JTUBE, AND GTUBE IN PLACE. SAFETY PRECAUTIONS IN PLACE. UPDATED BOARD. VITAL SIGNS WITHIN NORMAL LIMITS. PT IN STABLE CONDITION, NO SIGNS OF DISTRESS NOTED. BED IN LOW POSITION, CALL LIGHT WITHIN REACH. WILL CONTINUE TO MONITOR.
[2017-11-18] VITALS: BP 105/57
[2017-11-18] MEDS: DEXT 5% / NACL 0.45% 1,000 ML IV SCH ×3 (03:00→23:00)
[2017-11-18] MEDS: LORazepam 1 MG TAB GT SCH ×3 (05:13→20:47)
--- NOTE | 2017-11-18 05:15 | NUR ---
ADMINISTERED SCHEDULED MEDICATION ORDERED VIA GTUBE, NO RESIDUAL. FLUSHED WITH 30ML OF WATER. PT TOLERATED WELL. PT IN STABLE CONDITION, NO SIGNS OF DISTRESS NOTED. BED IN LOW POSITION, CALL LIGHT WITHIN REACH. WILL CONTINUE TO MONITOR.
[2017-11-18] MEDS: BLOOD GLUCOSE MONITORING 1 DEV DEV FS SCH ×4 (06:55→20:46)
--- NOTE | 2017-11-18 07:30 | NUR ---
RECEIVED REPORT FROM VAULT MANAGER NURSE AT BEDSIDE. PT IS AWAKE, NON VERBAL. UPDATED BOARD.IV NOTED TO THE RIGHT FA WITH GAUZE DRESSING. INFUSING WELL. NO SIGNS OF DISTRESS NOTED. BED IN LOW POSITION, CALL LIGHT WITHIN REACH. WILL CONTINUE TO MONITOR.
[2017-11-18 07:35] LABS: BASOPHILS # (AUTO) 0.1 K/uL (0.00-0.22); BASOPHILS % (AUTO) 0.6 % (0.0-2.0); EOSINOPHILS # (AUTO) 0.2 K/uL (0-0.4); EOSINOPHILS % (AUTO) 2.4 % (0.0-4.0); HEMATOCRIT 31.6 % (36-52); HEMOGLOBIN 10.2 g/dL (12.0-18.0); LYMPHOCYTES % (AUTO) 11.9 % (20.5-51.1); MEAN CORPUSCULAR HEMOGLOBIN 26 pg (27-31); MEAN CORPUSCULAR HGB CONC 32 g/dL (33-37); MEAN CORPUSCULAR VOLUME 81 fL (80-94); MONOCYTES # (AUTO) 0.8 K/uL (0.8-1.0); MONOCYTES % (AUTO) 9.3 % (1.7-9.3); NEUTROPHILS # (AUTO) 6.5 K/uL (1.8-7.7); NEUTROPHILS % (AUTO) 75.8 % (42.2-75.2); PLATELET COUNT (AUTO) 436 K/uL (140-450); RED CELL DISTRIBUTION WIDTH 13.3 % (11.6-13.7); WHITE BLOOD COUNT (AUTO) 8.6 K/uL (4.8-10.8)
[2017-11-18 07:45] LABS: ANION GAP 9.9 (8-16); CARBON DIOXIDE 27.7 mmol/L (21-32); CREATININE 0.6 mg/dL (0.7-1.3); POTASSIUM 3.6 mmol/L (3.5-5.1)
[2017-11-18 07:52] LABS: MAGNESIUM 1.9 mg/dL (1.8-2.4); PHOSPHORUS 3.2 mg/dL (2.5-4.9)
[2017-11-18 08:00] VITALS: BP 97/57
[2017-11-18] MEDS: Z-GUARD PASTE TP SCH (09:00)
--- NOTE | 2017-11-18 10:30 | NUR ---
G TUBE ASPIRATED. 25ML RESIDUAL. MEDS GIVEN VIA G-TUBE. PT TOLERATED WELL. ORAL CARE PROVIDED
[2017-11-18] MEDS: VIT-B COMP/VIT-C/FOLIC ACID 1 TAB GT SCH (10:43)
[2017-11-18] MEDS: HALOPERIDOL 1 MG TAB GT SCH ×3 (10:43→17:02)
[2017-11-18] MEDS: GLYCOPYRROLATE 1 MG TAB GT SCH ×2 (10:43→20:47)
[2017-11-18] MEDS: BENZTROPINE 1 MG TAB GT SCH ×2 (10:43→20:47)
--- NOTE | 2017-11-18 13:30 | NUR ---
Z-GUARD APPLIED TO L[place]O AREA. SKIN IS INTACT. BLANCHABLE PINK.
[2017-11-18 16:00] VITALS: BP 104/56
--- NOTE | 2017-11-18 16:00 | NUR ---
VITALS TAKEN, NO S/S OF DISTRESS NOTED. WILL CONTINUE TO MONITOR.
--- NOTE | 2017-11-18 19:36 | NUR ---
ENDORSED PT TO WORKPLACE REHABILITATION OFFICER RN. PT IS IN STABLE CONDITION, NO DISTRESS NOTED.
--- NOTE | 2017-11-18 22:05 | NUR ---
PT HAD A VERY DARK BM, IT LOOKED LIKE BLACK PASTY STOOL, BUT WHEN SMEARED IT LOOKED LIKE A VERY DARK GREEN INSTEAD OF BLACK. NOTIFIED DR. ESPINOZA, NO ORDERS GIVEN.
[2017-11-19] VITALS: BP 106/66
--- NOTE | 2017-11-19 00:05 | NUR ---
VITAL SIGNS WITHIN NORMAL LIMITS. PT IN STABLE CONDITION, NO SIGNS OF DISTRESS NOTED. BED IN LOW POSITION, CALL LIGHT WITHIN REACH. WILL CONTINUE TO MONITOR.
[2017-11-19] MEDS: LORazepam 1 MG TAB GT SCH ×3 (05:11→20:55)
[2017-11-19] MEDS: BLOOD GLUCOSE MONITORING 1 DEV DEV FS SCH ×4 (06:42→21:13)
--- NOTE | 2017-11-19 07:00 | NUR ---
ENDORSED PT TO DAY SHIFT RN FOR CONTINUITY OF CARE. PT IN STABLE CONDITION.
--- NOTE | 2017-11-19 07:05 | NUR ---
RECEIVED PATIENT REPORT AT BEDSIDE FROM NIGHT NURSE. PATIENT IS AWAKE AND SHOWS NO S/S OF ACUTE DISTRESS ON ROOM AIR. PATIENT IS NONVERBAL AND APHASIC WITH HX OF MR. IV NOTED ON THE R HAND WITH IVF'S INFUSING WELL. NOTED SKIN REDNESS AT PERINEAL SITE. PATIENT IS COMFORTABLE AT THIS TIME. POC WAS ATTEMPTED TO BE DISCUSSED WITH PATIENT HOWEVER HE IS UNABLE TO COMPREHEND AND UNABLE TO FOLLOW DIRECTIONS. THE BED IS IN LOW POSITION WITH CALL LIGHT WITHIN REACH.
[2017-11-19 07:30] LABS: BASOPHILS # (AUTO) 0.1 K/uL (0.00-0.22); BASOPHILS % (AUTO) 1.3 % (0.0-2.0); EOSINOPHILS # (AUTO) 0.3 K/uL (0-0.4); EOSINOPHILS % (AUTO) 3.8 % (0.0-4.0); HEMATOCRIT 30.5 % (36-52); HEMOGLOBIN 9.8 g/dL (12.0-18.0); LYMPHOCYTES # (AUTO) 1.2 K/uL (2.0-11.5); LYMPHOCYTES % (AUTO) 15.3 % (20.5-51.1); MEAN CORPUSCULAR HEMOGLOBIN 26 pg (27-31); MEAN CORPUSCULAR HGB CONC 32 g/dL (33-37); MEAN CORPUSCULAR VOLUME 80 fL (80-94); MONOCYTES # (AUTO) 0.8 K/uL (0.8-1.0); MONOCYTES % (AUTO) 10.1 % (1.7-9.3); NEUTROPHILS # (AUTO) 5.6 K/uL (1.8-7.7); NEUTROPHILS % (AUTO) 69.5 % (42.2-75.2); PLATELET COUNT (AUTO) 428 K/uL (140-450); RED CELL DISTRIBUTION WIDTH 13.4 % (11.6-13.7)
[2017-11-19 07:57] LABS: CREATININE 0.7 mg/dL (0.7-1.3)
[2017-11-19 07:58] LABS: MAGNESIUM 1.8 mg/dL (1.8-2.4); PHOSPHORUS 3.2 mg/dL (2.5-4.9)
[2017-11-19 08:00] VITALS: BP 107/64
[2017-11-19 08:04] LABS: ANION GAP 7.5 (8-16); CARBON DIOXIDE 29.3 mmol/L (21-32); POTASSIUM 3.8 mmol/L (3.5-5.1)
[2017-11-19] MEDS: GLYCOPYRROLATE 1 MG TAB GT SCH ×2 (09:00→20:55)
[2017-11-19] MEDS: HALOPERIDOL 1 MG TAB GT SCH ×3 (09:00→17:00)
[2017-11-19] MEDS: BENZTROPINE 1 MG TAB GT SCH ×2 (09:00→20:55)
[2017-11-19] MEDS: DEXT 5% / NACL 0.45% 1,000 ML IV SCH ×3 (09:00→21:25)
[2017-11-19] MEDS: VIT-B COMP/VIT-C/FOLIC ACID 1 TAB GT SCH (09:00)
--- NOTE | 2017-11-19 09:20 | NUR ---
SPOKE WITH DR EMERY REGARDING ADMINISTRATION OF MEDICATIONS THROUGH THE G TUBE. OKAYED NOT TO GIVE SCHEDULED MEDICATIONS UNTIL FURTHER NOTICE.
[2017-11-19] MEDS: Z-GUARD PASTE TP SCH (09:57)
--- NOTE | 2017-11-19 10:05 | NUR ---
[facility] CALLED [phone] AND IS TO F/U BACK WITH CONSENT FORMS FOR PATIENT PROCEDURE.
--- NOTE | 2017-11-19 10:50 | NUR ---
PATIENT WAS ASSISTED WITH REPOSITIONING AND PERINEAL CARE. PATIENT'S NEEDS MET AT THIS TIME. BED IN LOW POSITION WITH CALL LIGHT WITHIN REACH.
--- NOTE | 2017-11-19 11:57 | NUR ---
BHARAT FROM [facility] CALLED [phone] REGARDING PATIENT'S PROCEDURE AND TO SEND OVER CONSENT NOTIFIED DR EMERY.
--- NOTE | 2017-11-19 12:00 | NUR ---
PATIENT IS RESTING AND SHOWS NO S/S OF ACUTE DISTRESS AT THIS TIME. BLOOD SUGAR 101; NO INSULIN COVERAGE NEEDED.
--- NOTE | 2017-11-19 12:45 | NUR ---
SPOKE WITH DR EMERY REGARDING PATIENT PROCEDURE AND SHE OKAYED WITHOUT CONSENT FORMS AT THIS TIME. SPOKE WITH BHARAT FROM [facility] AT [phone] AND ARE TO SEND CONSENT FORM IN THE NEXT HR. DR NOTIFIED AND AWARE.
--- NOTE | 2017-11-19 13:00 | NUR ---
RECEIVED CONSENT PAPERWORK FROM [facility]. DR EMERY NOTIFIED. PLACED CONSENT FORM IN CHART.
--- NOTE | 2017-11-19 15:00 | NUR ---
PATIENT LEFT TO PROCEDURE IN STABLE CONDITION.
[2017-11-19] MEDS ORDERED: PROPOFOL 200 MG/20 ML VIAL IV ONE (15:06)
[2017-11-19] MEDS ORDERED: ROCURONIUM 50 MG/5 ML VIAL IV ONE (15:06)
[2017-11-19] MEDS ORDERED: DESFLURANE 240 ML BTL INH ONE (15:06)
[2017-11-19] MEDS ORDERED: KETOROLAC 30 MG/ML VIAL IVP ONE (15:06)
[2017-11-19] MEDS ORDERED: ONDANSETRON 4 MG/2 ML VIAL IVP ONE (15:06)
[2017-11-19] MEDS ORDERED: fentaNYL 0.05 MG/ML VIAL ONE (15:17)
[2017-11-19] MEDS ORDERED: BUPIVACAINE-MPF 0.5% 30 ML VIAL INJ ONE (15:19)
[2017-11-19 17:10] VITALS: BP 112/66
--- NOTE | 2017-11-19 17:10 | NUR ---
PATIENT BACK ON UNIT. PATIENT SHOWS NO S/S OF ACUTE DISTRESS AT THIS TIME ON ROOM AIR.
[2017-11-19 17:45] VITALS: BP 120/64
[2017-11-19 18:15] VITALS: BP 92/54
[2017-11-19 18:45] VITALS: BP 90/61
--- NOTE | 2017-11-19 19:30 | NUR ---
Patient's Plan of Care was discussed and reviewed with TROUT FARMER: RAINER
--- NOTE | 2017-11-19 19:35 | NUR ---
GAVE PATIENT REPORT AT BEDSIDE TO NIGHT NURSE. PATIENT ENDORSED IN STABLE CONDITION.
--- NOTE | 2017-11-19 19:36 | NUR ---
RECD RESTING IN BED, AWAKE, ALERT, APHASIC. RESPIRATION EVEN AND UNLABORED. IV OF LR AT 100 ML/HR INFUSING, RIGHT HAND G22, GT TUBE IN PLACED AND JEJUNOSTOMY TUBE WITH DRESSING DRY AND INTACT, BOTH COVERED WITH ABDOMINAL BINDER. ON BILATERAL SEQUENTIALS. PLAN OF CARE DISCUSSED. NEEDS REINFORCEMENT. NO APPEARANCE OF PAIN NOTED 0/10.
--- NOTE | 2017-11-19 20:55 | NUR ---
DUE PO MEDS GIVEN BY GT, TOLERATED WELL.
[2017-11-20] VITALS: BP 91/58
--- NOTE | 2017-11-20 | NUR ---
SLEEPING COMFORTABLY IN BED.
--- NOTE | 2017-11-20 04:00 | NUR ---
NO DISTRESS NOTED. SLEEPING ON HIS LEFT SIDE.
[2017-11-20] MEDS: DEXT 5% / NACL 0.45% 1,000 ML IV SCH ×2 (05:00→15:17)
[2017-11-20] MEDS: LORazepam 1 MG TAB GT SCH ×4 (05:00→21:37)
[2017-11-20] MEDS: BLOOD GLUCOSE MONITORING 1 DEV DEV FS SCH ×4 (06:20→21:43)
--- NOTE | 2017-11-20 07:01 | NUR ---
NO AGITATION NOTED DURING SHIFT. SAFETY MAINTAINED. CONDITION REMAIN STABLE. WILL ENDORSE TO AM NURSE FOR CONTINUITY OF CARE.
--- NOTE | 2017-11-20 07:05 | NUR ---
RECEIVED PATIENT REPORT AT BEDSIDE FROM NIGHT NURSE. PATIENT IS AWAKE AND SHOWS NO S/S OF ACUTE DISTRESS ON ROOM AIR. PATIENT IS NONVERBAL AND APHASIC WITH HX OF MR. FLACC-0. IV NOTED ON THE R HAND WITH IVF'S INFUSING WELL. NOTED SKIN REDNESS AT PERINEAL SITE. PATIENT IS COMFORTABLE AT THIS TIME. POC WAS ATTEMPTED TO BE DISCUSSED WITH PATIENT HOWEVER HE IS UNABLE TO COMPREHEND AND UNABLE TO FOLLOW DIRECTIONS. CONTACT, SEIZURE AND FALL PRECAUTIONS IN PLACE. THE BED IS IN LOW POSITION WITH CALL LIGHT WITHIN REACH.
[2017-11-20 08:00] VITALS: BP 106/68
[2017-11-20 08:18] LABS: BASOPHILS # (AUTO) 0.1 K/uL (0.00-0.22); BASOPHILS % (AUTO) 1.9 % (0.0-2.0); EOSINOPHILS # (AUTO) 0.3 K/uL (0-0.4); EOSINOPHILS % (AUTO) 4.4 % (0.0-4.0); HEMATOCRIT 29.8 % (36-52); HEMOGLOBIN 9.5 g/dL (12.0-18.0); LYMPHOCYTES # (AUTO) 1.3 K/uL (2.0-11.5); LYMPHOCYTES % (AUTO) 19.8 % (20.5-51.1); MEAN CORPUSCULAR HEMOGLOBIN 26 pg (27-31); MEAN CORPUSCULAR HGB CONC 32 g/dL (33-37); MEAN CORPUSCULAR VOLUME 80 fL (80-94); MONOCYTES # (AUTO) 0.7 K/uL (0.8-1.0); NEUTROPHILS # (AUTO) 4.4 K/uL (1.8-7.7); NEUTROPHILS % (AUTO) 63.9 % (42.2-75.2); PLATELET COUNT (AUTO) 446 K/uL (140-450); RED BLOOD CELL COUNT(AUTO) 3.71 MIL/uL (4.20-6.10); RED CELL DISTRIBUTION WIDTH 13.6 % (11.6-13.7); WHITE BLOOD COUNT (AUTO) 6.8 K/uL (4.8-10.8)
[2017-11-20 08:37] LABS: ANION GAP 7.4 (8-16); CARBON DIOXIDE 29.3 mmol/L (21-32); CREATININE 0.7 mg/dL (0.7-1.3); POTASSIUM 3.7 mmol/L (3.5-5.1)
[2017-11-20 08:45] LABS: MAGNESIUM 1.7 mg/dL (1.8-2.4); PHOSPHORUS 3.3 mg/dL (2.5-4.9)
--- NOTE | 2017-11-20 09:00 | NUR ---
NOTED G-TUBE LUQ AND J-TUBE LLQ. G-TUBE AND J-TUBE IS PATENT AND INTACT.
--- NOTE | 2017-11-20 09:15 | NUR ---
PATIENT WAS ASSISTED WITH PERINEAL CARE AND REPOSITIONED. PATIENT HAS A BM AND WAS GIVEN NEW LINENS AND GOWN. PATIENT IS SITTING COMFORTABLE IN BED AND SHOWS NO S/S OF ACUTE DISTRESS ON ROOM AIR.
[2017-11-20] MEDS: BENZTROPINE 1 MG TAB GT SCH ×2 (09:49→21:36)
[2017-11-20] MEDS: GLYCOPYRROLATE 1 MG TAB GT SCH ×2 (09:49→21:36)
[2017-11-20] MEDS: Z-GUARD PASTE TP SCH (09:49)
[2017-11-20] MEDS: VIT-B COMP/VIT-C/FOLIC ACID 1 TAB GT SCH (09:49)
[2017-11-20] MEDS: HALOPERIDOL 1 MG TAB GT SCH ×3 (09:49→17:04)
--- NOTE | 2017-11-20 09:50 | NUR ---
ADMINISTERED SCHEDULED MEDICATIONS THROUGH J-TUBE. J-TUBE WAS CHECKED FOR POSITIVE PLACEMENT, ASPIRATED WITH NO RESIDUAL NOTED, AND IS PATENT AND INTACT. PATIENT'S MEDICATIONS WERE CRUSHED INDIVIDUALLY AND GIVEN WITH 10 CC OF STERILE WATER. THEN J-TUBE WAS FLUSHED WITH 30 CC OF STERILE WATER. PATIENT'S NEEDS MET AT THIS TIME. BED IN LOW POSITION WITH HOB ELEVATED AT 45 DEGREES.
--- NOTE | 2017-11-20 10:10 | NUR ---
CALLED [facility] TO BRING UP TF FOR PATIENT ORDERED TO START TODAY.
--- NOTE | 2017-11-20 11:20 | NUR ---
BEGAN TF AT J-TUBE; DIABETISOURCE @ 20ML/HR WITH FREE H2O FLUSH @ 100ML Q6H. J-TUBE TF INFUSING WELL AT THIS TIME NO RESIDUAL NOTED.
--- NOTE | 2017-11-20 11:45 | NUR ---
TF MACHINE ALARMS ERROR. JEROD AZEVEDO RESTARTED TF MACHINE. WILL CONTINUE TO MONITOR.
--- NOTE | 2017-11-20 12:15 | NUR ---
TF MACHINE CONTINUE TO ALARM ERROR [facility] CALLED AND ASKED TO BRING NEW TF MACHINE. TF HELD AT THIS TIME.
--- NOTE | 2017-11-20 13:00 | NUR ---
TF CONTINUED AT 20ML/HR. NO RESIDUAL NOTED.
--- NOTE | 2017-11-20 14:00 | NUR ---
CM NOTE SPOKE W/ IMLEDA OF [facility] IN [place] (C: [phone]) RE. HOME HEALTH AGENCY. MADE AWARE THAT PATIENT WILL BE NEEDING HOME HEALTH FOR J-TUBE MAINTENANCE AND EDUCATION. PER IMELDA, SHE WILL KEEP [facility] ON SERVICE. (C: [phone], ATTN: SHARON). SUGEY W/ SHARON RE. CONTINUATION OF HOME HEALTH SERVICES.
[2017-11-20] MEDS ORDERED: MAG SULF 2000 MG/WATER PREMIX 50 ML IV SCH (15:00)
--- NOTE | 2017-11-20 15:30 | NUR ---
ADMINISTERED SCHEDULED MEDICATIONS. PATIENT IV NOTED INFILTRATED WILL ATTEMPT NEW IV SITE. IV ON THE RT HAND DISCONTINUED WITH CANNULA INTACT. HELD MAGNESIUM MEDICATION.
--- NOTE | 2017-11-20 15:33 | NUR ---
11/20/17 RD FOLLOW UP COMPLETED 1.PT WILL RESUME J-TUBE FEEDING WITH ACCEPTABLE TOLERANCE AND MEET >90% ESTIMATED ENERGY AND PROTEIN NEEDS/DAY. 2.DIETITIAN WILL MONITOR NUTRITION SUPPORT, NUTRITION-RELATED LABS TRENDING WNL, SKIN INTEGRITY, WEIGHTS, GI FUNCTION. DISCHARGE PLAN: PT SHOULD BE ABLE TO RESUME J TUBE FEEDS ONCE DISCHARGED TAM ARDON RD
[2017-11-20 16:00] VITALS: BP 112/71
--- NOTE | 2017-11-20 17:00 | NUR ---
TF TITRATED TO 30ML/HR. NO RESIDUAL NOTED.
--- NOTE | 2017-11-20 17:15 | NUR ---
PATIENT BEING SEEN BY DR WALLIS
--- NOTE | 2017-11-20 19:04 | NUR ---
GAVE PATIENT REPORT AT BEDSIDE TO NIGHT NURSE. PATIENT ENDORSED IN STABLE CONDITION.
--- NOTE | 2017-11-20 19:05 | NUR ---
RECD. RESTING IN BED, AWAKE, APHASIC, OCCASIONALLY MAKES INCOMPREHENSIBLE SOUNDS. IV OF D51/2 NS AT 100 ML/HR INFUSING, RIGHT HAND G22. WITH MITTENS ON, OCCASIONALLY PUTS LEFT MITTEN HAND INSIDE MOUTH. RESPIRATION EVEN AND UNLABORED. GT FEEDING OF DIABETISOURCE INFUSING AT 30 ML/HR, J TUBE SITE DRY AND INTACT. NO RESIDUAL NOTED, TOLERATING WELL JT FEEDING. G TUBE CLAMPED. REORIENTED ON HOSPITAL SETTING. NEEDS REINFORCEMENT. ON BILATERAL LEG SEQUENTIALS. NO APPEARANCE OF PAIN NOTED 0/10.
--- NOTE | 2017-11-20 19:14 | NUR ---
Patient's Plan of Care was discussed and reviewed with BUSINESS RULES DEVELOPER: RAINER.
--- NOTE | 2017-11-20 21:36 | NUR ---
DUE NIGHT MEDICATIONS GIVEN VIA JT, STILL NO RESIDUAL NOTED.
[2017-11-21] VITALS: BP 94/64
[2017-11-21] MEDS: DEXT 5% / NACL 0.45% 1,000 ML IV SCH ×2 (01:00→11:00)
--- NOTE | 2017-11-21 04:00 | NUR ---
OCCASIONALLY PUTS HANDS IN THE MOUTH, MITTENS CHANGED. MADE COMFORTABLE IN BED AFTER SPONGE BATH.
[2017-11-21] MEDS: LORazepam 1 MG TAB GT SCH ×2 (05:24→13:19)
[2017-11-21] MEDS: BLOOD GLUCOSE MONITORING 1 DEV DEV FS SCH ×2 (07:03→11:30)
--- NOTE | 2017-11-21 07:04 | NUR ---
CONDITION REMAIN STABLE. WILL ENDORSED TO AM NURSE FOR CONTINUITY OF CARE.
--- NOTE | 2017-11-21 07:30 | NUR ---
RECEIVED ON BED AWAKE, NONE-VERBAL. NO SOB NOTED. NO SIGN SOF PAIN. IV TO LT HAND PATENT AND INTACT. CHEST, DIMINISHED AIR ENTRY TO THE BASES, OTHERWISE CLEAR. ABDOMEN SOFT, BOWEL SOUND PRESENT, WITH J-TUBE, (S/P J-TUBE REPLACEMENT), G-TUBE IN PLACE, WITH 5 MLS RESIDUAL FROM J-TUBE. BUE AND BLE CONTRACTED. BED ON LOW POSITION, 3 SIDE RAILS UP, BED ALARM ON. WILL REPOSITION PT EVERY 2 HRS. WILL CONTINUE TO MONITOR.
[2017-11-21 08:00] VITALS: BP 112/67
[2017-11-21 08:06] LABS: BASOPHILS # (AUTO) 0.1 K/uL (0.00-0.22); BASOPHILS % (AUTO) 1.3 % (0.0-2.0); EOSINOPHILS # (AUTO) 0.3 K/uL (0-0.4); EOSINOPHILS % (AUTO) 3.9 % (0.0-4.0); HEMATOCRIT 28.9 % (36-52); HEMOGLOBIN 9.6 g/dL (12.0-18.0); LYMPHOCYTES # (AUTO) 1.2 K/uL (2.0-11.5); LYMPHOCYTES % (AUTO) 15.5 % (20.5-51.1); MEAN CORPUSCULAR HEMOGLOBIN 26 pg (27-31); MEAN CORPUSCULAR HGB CONC 33 g/dL (33-37); MEAN CORPUSCULAR VOLUME 78 fL (80-94); MONOCYTES # (AUTO) 0.7 K/uL (0.8-1.0); MONOCYTES % (AUTO) 8.8 % (1.7-9.3); NEUTROPHILS # (AUTO) 5.6 K/uL (1.8-7.7); NEUTROPHILS % (AUTO) 70.5 % (42.2-75.2); PLATELET COUNT (AUTO) 455 K/uL (140-450); RED CELL DISTRIBUTION WIDTH 13.7 % (11.6-13.7); WHITE BLOOD COUNT (AUTO) 7.9 K/uL (4.8-10.8)
[2017-11-21 08:14] LABS: ANION GAP 9.2 (8-16); CREATININE 0.6 mg/dL (0.7-1.3); POTASSIUM 3.2 mmol/L (3.5-5.1)
[2017-11-21 08:29] LABS: MAGNESIUM 2.1 mg/dL (1.8-2.4); PHOSPHORUS 2.5 mg/dL (2.5-4.9)
[2017-11-21] MEDS: VIT-B COMP/VIT-C/FOLIC ACID 1 TAB GT SCH (09:59)
[2017-11-21] MEDS: GLYCOPYRROLATE 1 MG TAB GT SCH (09:59)
[2017-11-21] MEDS: HALOPERIDOL 1 MG TAB GT SCH ×2 (09:59→13:19)
[2017-11-21] MEDS: BENZTROPINE 1 MG TAB GT SCH (09:59)
[2017-11-21] MEDS: Z-GUARD PASTE TP SCH (10:00)
[2017-11-21] MEDS ORDERED: POTASSIUM CHLORIDE 20% 40 MEQ/15 ML UDC GT SCH (10:20)
--- NOTE | 2017-11-21 12:00 | NUR ---
PT TOLERATED J-TUBE FEEDING WELL, TF INCREASED TO 55 ML/HR. WILL CONTINUE TO MONITOR.
--- NOTE | 2017-11-21 13:00 | NUR ---
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
--- NOTE | 2017-11-21 14:34 | NUR ---
SPOKE WITH SHARON NURSE FROM [facility] AND DISCUSSED WITH HER THE CONCERN THAT THE PT HAD PULLED OUT THE J TUBE AND REQUIRED REHOSPITALIZATION 4 DAYS AFTER BEING DISCHARGED LAST HOSPITALIZATION. SHE STATED THAT [facility] IS A LICENSED [facility]ED [facility] AND THEY WILL PROVIDE MORE EDUCATION TO THE STAFF AT THE FACILITY ON J TUBE CARE AND MEASURES TO PREVENT FROM DISLODGING THE TUBE. [facility] PHONE IS [phone]. INFORMED SHARON THAT INFORMATION ON HOSPITALIZATION WILL BE FAXED OVER TO THE AGENCY.
--- NOTE | 2017-11-21 14:40 | NUR ---
CM NOTE SPOKE W/ BERTHA FROM [facility] (C: [phone]). MADE AWARE THAT PATIENT WILL BE RETURNING HOME TODAY. H&P, OPERATIVE REPORT & DISCHARGE SUMMARY (W/ J-TUBE MAINTENANCE INSTRUCTIONS) FAXED TO [facility] / FAX# [phone]
--- NOTE | 2017-11-21 15:30 | NUR ---
DISCHARGE INSTRUCTIONS GIVEN TO PT'S CAREGIVER DIVYA WHICH VERBALIZED FULL UNDERSTANDING OF THE INSTRUCTIONS GIVEN AND THE NEED TO FOLLOW UP WITH PCP WITHIN 7 DAYS. ARM BANDS AND IV REMOVED, CANNULA TIP INTACT. G-TUBE AND J-TUBE CLAMPED.
--- NOTE | 2017-11-21 15:35 | NUR ---
PT WHEELED OUT TO THE PARKING LOT IN STABLE CONDITION. AWAKE. NO SOB NOTED. NO SIGN SOF PAIN. PT IS D/C BACK TO [facility].
== END 2017-11-21 15:35 | DRG 393 ==
LOC: MED 18:50 → MTU 20:21 → UNDODISIN 11-16 10:50
PROVIDERS: ADMIT Family Medicine Sports Medicine; ATTEND Family Medicine Sports Medicine
PROC: 0D2DXUZ Change Feeding Device in Lower Intestinal Tract, External Approach (ICD-10-PCS; principal; 2017-11-19 14:45)
DX: K94.13 Enterostomy malfunction (principal); R53.2 Functional quadriplegia; N17.0 Acute kidney failure with tubular necrosis; E43 Unspecified severe protein-calorie malnutrition; D68.59 Other primary thrombophilia; E11.51 Type 2 diabetes mellitus with diabetic peripheral angiopathy without gangrene; E83.39 Other disorders of phosphorus metabolism; F72 Severe intellectual disabilities; F02.81 Dementia in other diseases classified elsewhere, unspecified severity, with behavioral disturbance; Z68.1 Body mass index [BMI] 19.9 or less, adult; G30.9 Alzheimer's disease, unspecified; E83.42 Hypomagnesemia; G40.909 Epilepsy, unspecified, not intractable, without status epilepticus; K21.9 Gastro-esophageal reflux disease without esophagitis; R62.7 Adult failure to thrive; D72.829 Elevated white blood cell count, unspecified; D63.8 Anemia in other chronic diseases classified elsewhere; Z79.4 Long term (current) use of insulin
CPT/HCPCS: 36415; 71010; 80048; 80053; 81003; 82948; 83690; 83735; 84100; 84484; 85025; 85610; 85730; 87081; 93005; 99285; C1758; J1815; J1885; J2405; J2704; J3010; J3475; J3490; J7030; J7120; Q0092

== ENCOUNTER 2017-11-26 22:37 | Inpatient (IN) | payer OTHER, MEDICAID ==
[~2017-11-26] VITALS: Ht 157.5 cm; Wt 67.1 kg
[~2017-11-26 22:37] MED LIST changes: +ACET-2619 GT; -AMPI500C49 PO; +ASCO500T45 GT; +FERR75LI22 GT; +LORA-476 GT; +PYRI50TA12 GT; +ROB1 PO
[2017-11-26 22:50] VITALS: BP 109/68
[2017-11-26] MEDS ORDERED: PIPERACILLIN/TAZOBACTAM 3.375 GM in DEXTROSE 5% 50 ML IV ONE (23:40)
[2017-11-26] MEDS ORDERED: PIPERACILLIN/TAZOBACTAM 3.375 GM VIAL IV ONE (23:53)
[2017-11-26] MEDS ORDERED: ACETAMINOPHEN 325 MG SUPP RC ONE (23:53)
[2017-11-26] MEDS ORDERED: NACL 0.9% 2,000 ML IV ONE (23:55)
[2017-11-26] MEDS ORDERED: ACETAMINOPHEN 650 MG SUPP RC ONE (23:55)
[2017-11-27 00:19] LABS: HEMATOCRIT 35.9 % (36-52); HEMOGLOBIN 11.7 g/dL (12.0-18.0); MEAN CORPUSCULAR HEMOGLOBIN 26 pg (27-31); MEAN CORPUSCULAR HGB CONC 33 g/dL (33-37); MEAN CORPUSCULAR VOLUME 81 fL (80-94); RED BLOOD CELL COUNT(AUTO) 4.46 MIL/uL (4.20-6.10); RED CELL DISTRIBUTION WIDTH 14.4 % (11.6-13.7)
[2017-11-27 00:25] LABS: ALBUMIN 2.5 g/dL (3.4-5.0); ANION GAP 10.7 (8-16); CARBON DIOXIDE 38.8 mmol/L (21-32); CREATININE 1.2 mg/dL (0.7-1.3); POTASSIUM 3.5 mmol/L (3.5-5.1); TOTAL BILIRUBIN 0.2 mg/dL (0.0-1.0)
[2017-11-27 00:30] LABS: WHITE BLOOD COUNT (AUTO) 28.5 K/uL (4.8-10.8)
[2017-11-27 00:31] LABS: PLATELET COUNT (AUTO) 618 K/uL (140-450)
[2017-11-27 00:32] LABS: LYMPHOCYTES % (MANUAL) 19 % (20-46); MONOCYTES % (MANUAL) 7 % (5-12)
[2017-11-27 00:46] LABS: APPEARANCE,URINE CLOUDY (CLEAR); BILIRUBIN,URINE NEGATIVE (NEGATIVE); BLOOD, URINE 2+ (NEGATIVE); COLOR,URINE YELLOW (YELLOW); LEUKOCYTE ESTERASE ,URINE 3+ (NEGATIVE); NITRITE, URINE NEGATIVE (NEGATIVE); UGLUCOSE NEGATIVE (NEGATIVE)
[2017-11-27] MEDS: NACL 0.9% 1,000 ML IV SCH ×3 (01:33→11:33)
[2017-11-27] MEDS ORDERED: LORazepam 0.5 MG TAB PO PRN (01:35)
[2017-11-27] MEDS ORDERED: ONDANSETRON 4 MG/2 ML VIAL IM/IVP PRN (01:35)
[2017-11-27] MEDS ORDERED: ACETAMINOPHEN 325 MG TAB PO PRN (01:35)
[2017-11-27] MEDS ORDERED: DOCUSATE SODIUM 100 MG GELCAP PO PRN (01:35)
[2017-11-27] MEDS ORDERED: MORPHINE SULFATE 2 MG/ML SYR IVP PRN (01:35)
[2017-11-27] MEDS ORDERED: ZOLPIDEM 5 MG TAB PO PRN (01:35)
[2017-11-27] MEDS ORDERED: HYDROcodone/APAP 7.5/325 MG 1 TAB PO PRN (01:35)
[2017-11-27 02:00] VITALS: BP 94/56
[2017-11-27 02:45] LABS: BARBITURATE, URINE NEG. ng/ml (NEG <=200); BENZODIAZEPINE, URINE NEG. ng/mL (NEG <=200); CANNABINOID, URINE NEG. ng/mL (NEG <=50); COCAINE, URINE NEG. ng/mL (NEG <=300); OPIATE, URINE NEG. ng/mL (NEG <=2000); PHENCYCLIDINE SCREEN,URINE NEG. ng/mL (NEG <=25)
[2017-11-27 03:07] LABS: CHOL/HDL RATIO 3.7 (1-4.5); FREE T4 (FREE THYROXINE) 1.19 ng/dL (0.76-1.46); MAGNESIUM 2.4 mg/dL (1.8-2.4); PHOSPHORUS 2.1 mg/dL (2.5-4.9); THYROID STIMULATING HORMONE 2.19 uIU/mL (0.34-3.74)
[2017-11-27] MEDS ORDERED: SODIUM PHOSPHATE 118 ML ENEM RC PRN (03:35)
[2017-11-27] MEDS ORDERED: guaiFENesin 20 MG/ML UDC GT PRN (03:35)
[2017-11-27] MEDS ORDERED: NA P135N RC (03:39)
[2017-11-27] MEDS ORDERED: BISA5ECT43 RC (03:39)
[2017-11-27] MEDS ORDERED: [UNRECOGNIZED DRUG - CODE] GT (03:39)
[2017-11-27] MEDS ORDERED: [UNRECOGNIZED DRUG - CODE] GT (03:39)
[2017-11-27] MEDS ORDERED: [UNRECOGNIZED DRUG - CODE] GT (03:39)
[2017-11-27] MEDS ORDERED: DEXTROSE 50% 50 ML SYR IVP PRN (03:55)
[2017-11-27] MEDS ORDERED: INSULIN LISPRO SLIDING SCALE 100 UNITS/ML VIAL SUBQ PRN (03:55)
[2017-11-27] MEDS ORDERED: ACETAMINOPHEN 325 MG TAB GT SCH (04:00)
[2017-11-27 04:07] LABS: RBC,URINE TOO NUMEROUS TO COUN /HPF (0-5); WBC,URINE TOO MANY TO COUNT /HPF (0-5)
[2017-11-27] MEDS ORDERED: PIPERACILLIN/TAZOBACTAM 3.375 GM VIAL IV ONE (04:24)
[2017-11-27] MEDS: FAMOTIDINE 20 MG/2 ML VIAL IV SCH (04:27)
[2017-11-27] MEDS: PIPER/TAZO 3.375GM/D5W PREMIX 50 ML IV SCH ×3 (04:28→21:15)
[2017-11-27 08:00] VITALS: BP 92/59
[2017-11-27] MEDS: HALOPERIDOL 1 MG TAB GT SCH ×3 (09:00→17:42)
[2017-11-27] MEDS: PYRIDOXINE 50 MG TAB GT SCH (09:00)
[2017-11-27] MEDS: GLYCOPYRROLATE 1 MG TAB PO SCH ×2 (09:00→20:55)
[2017-11-27] MEDS: ASCORBIC ACID 500 MG TAB GT SCH ×2 (09:00→20:57)
[2017-11-27] MEDS: LORATADINE 10 MG TAB GT SCH (09:00)
[2017-11-27] MEDS: BENZTROPINE 1 MG TAB PO SCH ×2 (09:00→20:56)
[2017-11-27] MEDS: FERROUS SULFATE 300 MG/5 ML UDC GT SCH ×2 (09:00→20:55)
[2017-11-27] MEDS: LACTOBACILLUS RHAMNOSUS GG 1 EACH CAP GT SCH (09:00)
[2017-11-27] MEDS: METOCLOPRAMIDE 10 MG/10 ML SYRP UDC GT SCH ×3 (10:00→16:30)
[2017-11-27 10:54] LABS: ANION GAP 10.1 (8-16); CARBON DIOXIDE 35.4 mmol/L (21-32); CREATININE 1.2 mg/dL (0.7-1.3); MAGNESIUM 2.1 mg/dL (1.8-2.4); PHOSPHORUS 2.7 mg/dL (2.5-4.9); POTASSIUM 3.5 mmol/L (3.5-5.1)
[2017-11-27] MEDS: BLOOD GLUCOSE MONITORING 1 DEV DEV FS SCH ×3 (11:30→20:57)
[2017-11-27] MEDS: LORazepam 1 MG TAB GT SCH ×2 (13:18→20:53)
[2017-11-27 13:41] LABS: HEMATOCRIT 28.3 % (36-52); HEMOGLOBIN 9.1 g/dL (12.0-18.0); MEAN CORPUSCULAR HEMOGLOBIN 26 pg (27-31); MEAN CORPUSCULAR HGB CONC 32 g/dL (33-37); MEAN CORPUSCULAR VOLUME 80 fL (80-94); RED BLOOD CELL COUNT(AUTO) 3.54 MIL/uL (4.20-6.10); RED CELL DISTRIBUTION WIDTH 14.5 % (11.6-13.7)
[2017-11-27 13:42] LABS: LYMPHOCYTES % (MANUAL) 13 % (20-46); MONOCYTES % (MANUAL) 7 % (5-12); PLATELET COUNT (AUTO) 470 K/uL (140-450)
[2017-11-27] MEDS: DEXT 5% / NACL 0.45% 1,000 ML IV SCH (15:05)
[2017-11-27] MEDS ORDERED: METOCLOPRAMIDE 10 MG/10 ML SYRP UDC ONE ×2 (15:09→17:20)
[2017-11-27 16:00] VITALS: BP 107/54
[2017-11-27] MEDS ORDERED: HALOPERIDOL 1 MG TAB ONE (17:20)
[2017-11-27] MEDS ORDERED: FERROUS SULFATE 300 MG/5 ML UDC ONE (20:39)
[2017-11-27] MEDS ORDERED: LORazepam 1 MG TAB ONE (20:39)
[2017-11-27] MEDS ORDERED: GLYCOPYRROLATE 1 MG TAB ONE (20:40)
[2017-11-27] MEDS ORDERED: BENZTROPINE 1 MG TAB ONE (20:40)
[2017-11-27] MEDS ORDERED: ASCORBIC ACID 500 MG TAB ONE (20:40)
[2017-11-28] VITALS: BP 94/64
[2017-11-28] MEDS: DEXT 5% / NACL 0.45% 1,000 ML IV SCH ×4 (01:05→21:05)
[2017-11-28] MEDS ORDERED: FAMOTIDINE 20 MG/2 ML VIAL ONE (03:43)
[2017-11-28] MEDS: FAMOTIDINE 20 MG/2 ML VIAL IV SCH (03:44)
[2017-11-28] MEDS: PIPER/TAZO 3.375GM/D5W PREMIX 50 ML IV SCH ×3 (04:53→21:00)
[2017-11-28] MEDS ORDERED: LORazepam 1 MG TAB ONE ×2 (05:40→05:51)
[2017-11-28] MEDS ORDERED: HEPARIN PER PHARMACY MC PRN (06:10)
[2017-11-28] MEDS ORDERED: METOCLOPRAMIDE 10 MG/10 ML SYRP UDC ONE (06:16)
[2017-11-28] MEDS: LORazepam 1 MG TAB GT SCH ×3 (06:24→21:27)
[2017-11-28] MEDS: METOCLOPRAMIDE 10 MG/10 ML SYRP UDC GT SCH ×3 (06:25→16:45)
[2017-11-28 08:00] VITALS: BP 113/73
[2017-11-28] MEDS ORDERED: hePARIN / DEXT 5% PREMIX 250 ML IV SCH (08:15)
[2017-11-28] MEDS: ASCORBIC ACID 500 MG TAB GT SCH ×2 (09:00→21:27)
[2017-11-28] MEDS: LACTOBACILLUS RHAMNOSUS GG 1 EACH CAP GT SCH (09:00)
[2017-11-28 10:22] LABS: BASOPHILS # (AUTO) 0.1 K/uL (0.00-0.22); BASOPHILS % (AUTO) 1.3 % (0.0-2.0); EOSINOPHILS # (AUTO) 0.2 K/uL (0-0.4); LYMPHOCYTES # (AUTO) 1.4 K/uL (2.0-11.5); MEAN CORPUSCULAR HEMOGLOBIN 25 pg (27-31); MEAN CORPUSCULAR HGB CONC 32 g/dL (33-37); MEAN CORPUSCULAR VOLUME 79 fL (80-94); MONOCYTES # (AUTO) 0.9 K/uL (0.8-1.0); MONOCYTES % (AUTO) 7.6 % (1.7-9.3); NEUTROPHILS # (AUTO) 8.8 K/uL (1.8-7.7); NEUTROPHILS % (AUTO) 77.1 % (42.2-75.2); PLATELET COUNT (AUTO) 435 K/uL (140-450); RED BLOOD CELL COUNT(AUTO) 3.57 MIL/uL (4.20-6.10); RED CELL DISTRIBUTION WIDTH 14.2 % (11.6-13.7); WHITE BLOOD COUNT (AUTO) 11.4 K/uL (4.8-10.8)
[2017-11-28] MEDS: GLYCOPYRROLATE 1 MG TAB PO SCH ×2 (10:56→21:27)
[2017-11-28] MEDS: HALOPERIDOL 1 MG TAB GT SCH ×3 (10:56→16:45)
[2017-11-28] MEDS: PYRIDOXINE 50 MG TAB GT SCH (10:57)
[2017-11-28] MEDS: LORATADINE 10 MG TAB GT SCH (10:57)
[2017-11-28] MEDS: FERROUS SULFATE 300 MG/5 ML UDC GT SCH ×2 (10:57→21:27)
[2017-11-28] MEDS: BENZTROPINE 1 MG TAB PO SCH ×2 (10:58→21:27)
[2017-11-28] MEDS: BLOOD GLUCOSE MONITORING 1 DEV DEV FS SCH ×3 (11:30→21:30)
[2017-11-28 16:00] VITALS: BP 106/70
[2017-11-28] MEDS: MUPIROCIN 2% OINT 22 GM TUBE TP SCH (16:00)
[2017-11-28] MEDS: CHLORHEXADINE GLUC 2% CLOTH TP SCH (16:46)
[2017-11-28] MEDS ORDERED: DOCUSATE 100 MG/10 ML UDC PO PRN (17:23)
[2017-11-28] MEDS ORDERED: DOCUSATE 100 MG/10 ML UDC GT PRN (17:23)
[2017-11-28 20:00] VITALS: BP 100/60
[2017-11-29] MEDS: DEXT 5% / NACL 0.45% 1,000 ML IV SCH ×2 (00:03→17:05)
[2017-11-29 00:06] VITALS: BP 99/61
[2017-11-29] MEDS: FAMOTIDINE 20 MG/2 ML VIAL IV SCH (03:36)
[2017-11-29 04:00] VITALS: BP 106/65
[2017-11-29] MEDS: PIPER/TAZO 3.375GM/D5W PREMIX 50 ML IV SCH ×3 (04:42→20:57)
[2017-11-29] MEDS: LORazepam 1 MG TAB GT SCH ×3 (04:43→20:58)
[2017-11-29] MEDS: METOCLOPRAMIDE 10 MG/10 ML SYRP UDC GT SCH ×3 (06:33→18:16)
[2017-11-29] MEDS: BLOOD GLUCOSE MONITORING 1 DEV DEV FS SCH ×4 (06:36→20:58)
[2017-11-29 06:56] LABS: BASOPHILS # (AUTO) 0.2 K/uL (0.00-0.22); BASOPHILS % (AUTO) 1.9 % (0.0-2.0); EOSINOPHILS # (AUTO) 0.6 K/uL (0-0.4); EOSINOPHILS % (AUTO) 5.3 % (0.0-4.0); HEMATOCRIT 27.6 % (36-52); HEMOGLOBIN 8.9 g/dL (12.0-18.0); LYMPHOCYTES # (AUTO) 1.8 K/uL (2.0-11.5); LYMPHOCYTES % (AUTO) 17.6 % (20.5-51.1); MEAN CORPUSCULAR HEMOGLOBIN 26 pg (27-31); MEAN CORPUSCULAR HGB CONC 32 g/dL (33-37); MEAN CORPUSCULAR VOLUME 80 fL (80-94); MONOCYTES # (AUTO) 0.9 K/uL (0.8-1.0); MONOCYTES % (AUTO) 8.8 % (1.7-9.3); NEUTROPHILS # (AUTO) 6.9 K/uL (1.8-7.7); NEUTROPHILS % (AUTO) 66.4 % (42.2-75.2); PLATELET COUNT (AUTO) 415 K/uL (140-450); RED BLOOD CELL COUNT(AUTO) 3.47 MIL/uL (4.20-6.10); RED CELL DISTRIBUTION WIDTH 14.5 % (11.6-13.7); WHITE BLOOD COUNT (AUTO) 10.4 K/uL (4.8-10.8)
[2017-11-29 07:44] LABS: PHOSPHORUS 3.9 mg/dL (2.5-4.9)
[2017-11-29] MEDS: LORATADINE 10 MG TAB GT SCH (09:01)
[2017-11-29] MEDS: FERROUS SULFATE 300 MG/5 ML UDC GT SCH ×2 (09:01→20:57)
[2017-11-29] MEDS: LACTOBACILLUS RHAMNOSUS GG 1 EACH CAP GT SCH (09:01)
[2017-11-29] MEDS: PYRIDOXINE 50 MG TAB GT SCH (09:02)
[2017-11-29] MEDS: ASCORBIC ACID 500 MG TAB GT SCH ×2 (09:02→20:58)
[2017-11-29] MEDS: HALOPERIDOL 1 MG TAB GT SCH ×3 (09:02→18:16)
[2017-11-29] MEDS: BENZTROPINE 1 MG TAB PO SCH ×2 (09:02→20:58)
[2017-11-29] MEDS: GLYCOPYRROLATE 1 MG TAB PO SCH ×2 (09:03→20:58)
[2017-11-29 09:18] LABS: ANION GAP 9.9 (8-16); CARBON DIOXIDE 30.7 mmol/L (21-32); CREATININE 0.8 mg/dL (0.7-1.3); POTASSIUM 3.6 mmol/L (3.5-5.1)
[2017-11-29 12:00] VITALS: BP 91/53
[2017-11-29] MEDS: CHLORHEXADINE GLUC 2% CLOTH TP SCH (16:00)
[2017-11-29] MEDS: MUPIROCIN 2% OINT 22 GM TUBE TP SCH (18:16)
[2017-11-29 20:00] VITALS: BP 122/66
[2017-11-30] VITALS: BP 119/72
[2017-11-30] MEDS: DEXT 5% / NACL 0.45% 1,000 ML IV SCH ×3 (03:23→23:05)
[2017-11-30] MEDS: FAMOTIDINE 20 MG/2 ML VIAL IV SCH (03:41)
[2017-11-30 04:00] VITALS: BP 101/75
[2017-11-30] MEDS: LORazepam 1 MG TAB GT SCH ×3 (05:42→22:12)
[2017-11-30] MEDS: PIPER/TAZO 3.375GM/D5W PREMIX 50 ML IV SCH ×3 (05:42→22:11)
[2017-11-30] MEDS: METOCLOPRAMIDE 10 MG/10 ML SYRP UDC GT SCH ×3 (06:32→17:29)
[2017-11-30] MEDS: BLOOD GLUCOSE MONITORING 1 DEV DEV FS SCH ×4 (06:35→20:17)
[2017-11-30 07:49] LABS: BASOPHILS # (AUTO) 0.1 K/uL (0.00-0.22); BASOPHILS % (AUTO) 1.3 % (0.0-2.0); EOSINOPHILS # (AUTO) 0.6 K/uL (0-0.4); EOSINOPHILS % (AUTO) 5.3 % (0.0-4.0); HEMATOCRIT 28.7 % (36-52); HEMOGLOBIN 9.1 g/dL (12.0-18.0); LYMPHOCYTES # (AUTO) 1.4 K/uL (2.0-11.5); LYMPHOCYTES % (AUTO) 13.1 % (20.5-51.1); MEAN CORPUSCULAR HEMOGLOBIN 25 pg (27-31); MEAN CORPUSCULAR HGB CONC 32 g/dL (33-37); MEAN CORPUSCULAR VOLUME 80 fL (80-94); MONOCYTES # (AUTO) 0.8 K/uL (0.8-1.0); NEUTROPHILS # (AUTO) 7.7 K/uL (1.8-7.7); NEUTROPHILS % (AUTO) 72.3 % (42.2-75.2); PLATELET COUNT (AUTO) 442 K/uL (140-450); RED CELL DISTRIBUTION WIDTH 14.4 % (11.6-13.7); WHITE BLOOD COUNT (AUTO) 10.6 K/uL (4.8-10.8)
[2017-11-30 08:00] VITALS: BP 132/60
[2017-11-30 08:18] LABS: CARBON DIOXIDE 28.7 mmol/L (21-32); CREATININE 0.8 mg/dL (0.7-1.3); POTASSIUM 3.7 mmol/L (3.5-5.1)
[2017-11-30 08:23] LABS: MAGNESIUM 2.2 mg/dL (1.8-2.4); PHOSPHORUS 3.1 mg/dL (2.5-4.9)
[2017-11-30] MEDS: HALOPERIDOL 1 MG TAB GT SCH ×3 (09:33→17:29)
[2017-11-30] MEDS: GLYCOPYRROLATE 1 MG TAB PO SCH ×2 (09:33→22:12)
[2017-11-30] MEDS: PYRIDOXINE 50 MG TAB GT SCH (09:33)
[2017-11-30] MEDS: LACTOBACILLUS RHAMNOSUS GG 1 EACH CAP GT SCH (09:33)
[2017-11-30] MEDS: BENZTROPINE 1 MG TAB PO SCH ×2 (09:33→22:12)
[2017-11-30] MEDS: ASCORBIC ACID 500 MG TAB GT SCH ×2 (09:34→22:12)
[2017-11-30] MEDS: LORATADINE 10 MG TAB GT SCH (09:34)
[2017-11-30] MEDS: FERROUS SULFATE 300 MG/5 ML UDC GT SCH ×2 (09:35→22:11)
[2017-11-30] MEDS: Z-GUARD PASTE TP SCH (09:42)
[2017-11-30 12:00] VITALS: BP 123/70
[2017-11-30 16:00] VITALS: BP 109/74
[2017-11-30] MEDS: CHLORHEXADINE GLUC 2% CLOTH TP SCH (16:00)
[2017-11-30] MEDS: MUPIROCIN 2% OINT 22 GM TUBE TP SCH (17:28)
[2017-11-30 20:00] VITALS: BP 115/76
[2017-12-01] VITALS: BP 131/72
[2017-12-01] MEDS: FAMOTIDINE 20 MG/2 ML VIAL IV SCH (03:41)
[2017-12-01 04:00] VITALS: BP 119/69
[2017-12-01] MEDS: LORazepam 1 MG TAB GT SCH ×3 (04:54→21:02)
[2017-12-01] MEDS: PIPER/TAZO 3.375GM/D5W PREMIX 50 ML IV SCH ×3 (04:54→21:01)
[2017-12-01] MEDS: METOCLOPRAMIDE 10 MG/10 ML SYRP UDC GT SCH ×3 (06:35→17:45)
[2017-12-01] MEDS: BLOOD GLUCOSE MONITORING 1 DEV DEV FS SCH ×4 (06:38→21:24)
[2017-12-01 08:00] VITALS: BP 110/74
[2017-12-01] MEDS: Z-GUARD PASTE TP SCH (09:00)
[2017-12-01] MEDS: BENZTROPINE 1 MG TAB PO SCH ×2 (10:18→21:01)
[2017-12-01] MEDS: LACTOBACILLUS RHAMNOSUS GG 1 EACH CAP GT SCH (10:18)
[2017-12-01] MEDS: LORATADINE 10 MG TAB GT SCH (10:18)
[2017-12-01] MEDS: FERROUS SULFATE 300 MG/5 ML UDC GT SCH ×2 (10:18→21:02)
[2017-12-01] MEDS: ASCORBIC ACID 500 MG TAB GT SCH ×2 (10:18→21:01)
[2017-12-01] MEDS: GLYCOPYRROLATE 1 MG TAB PO SCH ×2 (10:19→21:01)
[2017-12-01] MEDS: HALOPERIDOL 1 MG TAB GT SCH ×3 (10:19→17:45)
[2017-12-01] MEDS: PYRIDOXINE 50 MG TAB GT SCH (10:19)
[2017-12-01 10:21] LABS: BASOPHILS # (AUTO) 0.1 K/uL (0.00-0.22); BASOPHILS % (AUTO) 0.7 % (0.0-2.0); EOSINOPHILS # (AUTO) 0.7 K/uL (0-0.4); EOSINOPHILS % (AUTO) 6.7 % (0.0-4.0); HEMATOCRIT 30.2 % (36-52); HEMOGLOBIN 9.7 g/dL (12.0-18.0); LYMPHOCYTES # (AUTO) 1.3 K/uL (2.0-11.5); LYMPHOCYTES % (AUTO) 12.9 % (20.5-51.1); MEAN CORPUSCULAR HEMOGLOBIN 25 pg (27-31); MEAN CORPUSCULAR HGB CONC 32 g/dL (33-37); MEAN CORPUSCULAR VOLUME 79 fL (80-94); MONOCYTES # (AUTO) 0.8 K/uL (0.8-1.0); MONOCYTES % (AUTO) 8.4 % (1.7-9.3); NEUTROPHILS % (AUTO) 71.3 % (42.2-75.2); PLATELET COUNT (AUTO) 452 K/uL (140-450); RED BLOOD CELL COUNT(AUTO) 3.81 MIL/uL (4.20-6.10); RED CELL DISTRIBUTION WIDTH 14.8 % (11.6-13.7); WHITE BLOOD COUNT (AUTO) 9.9 K/uL (4.8-10.8)
[2017-12-01] MEDS: DEXT 5% / NACL 0.45% 1,000 ML IV SCH ×2 (10:23→21:45)
[2017-12-01 10:38] LABS: ANION GAP 11.3 (8-16); CARBON DIOXIDE 28.6 mmol/L (21-32); CREATININE 0.8 mg/dL (0.7-1.3); POTASSIUM 4.9 mmol/L (3.5-5.1)
[2017-12-01 10:40] LABS: MAGNESIUM 2.3 mg/dL (1.8-2.4); PHOSPHORUS 2.9 mg/dL (2.5-4.9)
[2017-12-01 12:00] VITALS: BP 117/73
[2017-12-01] MEDS ORDERED: ECOTRIN 81 MG TABEC PO ONE (13:20)
[2017-12-01] MEDS ORDERED: ATORVASTATIN 20 MG TAB PO SCH (13:33)
[2017-12-01] MEDS ORDERED: ASPIRIN 81 MG TAB.CHEW PO SCH (13:33)
[2017-12-01 16:00] VITALS: BP 128/66
[2017-12-01] MEDS: CHLORHEXADINE GLUC 2% CLOTH TP SCH (16:00)
[2017-12-01] MEDS: MUPIROCIN 2% OINT 22 GM TUBE TP SCH (17:45)
[2017-12-01 20:00] VITALS: BP 114/66
[2017-12-02] VITALS: BP 110/61
[2017-12-02] MEDS: FAMOTIDINE 20 MG/2 ML VIAL IV SCH (03:08)
[2017-12-02 04:00] VITALS: BP 109/58
[2017-12-02] MEDS: LORazepam 1 MG TAB GT SCH ×3 (04:15→21:28)
[2017-12-02] MEDS: PIPER/TAZO 3.375GM/D5W PREMIX 50 ML IV SCH ×3 (04:16→21:30)
[2017-12-02] MEDS: DEXT 5% / NACL 0.45% 1,000 ML IV SCH ×2 (04:17→15:05)
[2017-12-02] MEDS: METOCLOPRAMIDE 10 MG/10 ML SYRP UDC GT SCH ×3 (06:30→17:08)
[2017-12-02] MEDS: BLOOD GLUCOSE MONITORING 1 DEV DEV FS SCH ×4 (06:30→21:00)
[2017-12-02 07:41] LABS: BASOPHILS # (AUTO) 0.1 K/uL (0.00-0.22); BASOPHILS % (AUTO) 0.9 % (0.0-2.0); EOSINOPHILS # (AUTO) 0.7 K/uL (0-0.4); EOSINOPHILS % (AUTO) 4.8 % (0.0-4.0); HEMATOCRIT 29.9 % (36-52); HEMOGLOBIN 9.9 g/dL (12.0-18.0); LYMPHOCYTES # (AUTO) 1.9 K/uL (2.0-11.5); MEAN CORPUSCULAR HEMOGLOBIN 26 pg (27-31); MEAN CORPUSCULAR HGB CONC 33 g/dL (33-37); MEAN CORPUSCULAR VOLUME 78 fL (80-94); MONOCYTES # (AUTO) 1.1 K/uL (0.8-1.0); MONOCYTES % (AUTO) 7.6 % (1.7-9.3); NEUTROPHILS # (AUTO) 10.1 K/uL (1.8-7.7); NEUTROPHILS % (AUTO) 72.7 % (42.2-75.2); PLATELET COUNT (AUTO) 474 K/uL (140-450); RED BLOOD CELL COUNT(AUTO) 3.84 MIL/uL (4.20-6.10); RED CELL DISTRIBUTION WIDTH 15.1 % (11.6-13.7); WHITE BLOOD COUNT (AUTO) 13.9 K/uL (4.8-10.8)
[2017-12-02 07:53] LABS: CARBON DIOXIDE 28.6 mmol/L (21-32); CREATININE 0.8 mg/dL (0.7-1.3); POTASSIUM 4.6 mmol/L (3.5-5.1)
[2017-12-02 07:56] VITALS: BP 106/67
[2017-12-02 08:25] LABS: MAGNESIUM 2.3 mg/dL (1.8-2.4); PHOSPHORUS 2.9 mg/dL (2.5-4.9)
[2017-12-02] MEDS: HALOPERIDOL 1 MG TAB GT SCH ×3 (08:38→17:09)
[2017-12-02] MEDS: FERROUS SULFATE 300 MG/5 ML UDC GT SCH ×2 (08:38→21:28)
[2017-12-02] MEDS: ASPIRIN 81 MG TAB.CHEW PO SCH (08:39)
[2017-12-02] MEDS: PYRIDOXINE 50 MG TAB GT SCH (08:39)
[2017-12-02] MEDS: ASCORBIC ACID 500 MG TAB GT SCH ×2 (08:39→21:28)
[2017-12-02] MEDS: ATORVASTATIN 20 MG TAB PO SCH (08:39)
[2017-12-02] MEDS: LORATADINE 10 MG TAB GT SCH (08:39)
[2017-12-02] MEDS: BENZTROPINE 1 MG TAB PO SCH ×2 (08:39→21:29)
[2017-12-02] MEDS: GLYCOPYRROLATE 1 MG TAB PO SCH ×2 (08:39→21:29)
[2017-12-02] MEDS: LACTOBACILLUS RHAMNOSUS GG 1 EACH CAP GT SCH (08:39)
[2017-12-02] MEDS: Z-GUARD PASTE TP SCH (08:40)
[2017-12-02 12:00] VITALS: BP 94/54
[2017-12-02] MEDS ORDERED: AMOX-999 GT (12:55)
[2017-12-02] MEDS ORDERED: LACT10CA1 GT (12:56)
[2017-12-02 16:00] VITALS: BP 107/60
[2017-12-02] MEDS: CHLORHEXADINE GLUC 2% CLOTH TP SCH (16:00)
[2017-12-02] MEDS: MUPIROCIN 2% OINT 22 GM TUBE TP SCH (17:09)
[2017-12-03] VITALS: BP 111/80
[2017-12-03] MEDS: DEXT 5% / NACL 0.45% 1,000 ML IV SCH (00:26)
[2017-12-03] MEDS: LORazepam 1 MG TAB GT SCH (04:10)
[2017-12-03] MEDS: FAMOTIDINE 20 MG/2 ML VIAL IV SCH (04:10)
[2017-12-03] MEDS: PIPER/TAZO 3.375GM/D5W PREMIX 50 ML IV SCH (04:11)
[2017-12-03] MEDS: BLOOD GLUCOSE MONITORING 1 DEV DEV FS SCH (07:38)
[2017-12-03] MEDS: METOCLOPRAMIDE 10 MG/10 ML SYRP UDC GT SCH (07:41)
[2017-12-03 08:00] VITALS: BP 92/73
[2017-12-03] MEDS: ATORVASTATIN 20 MG TAB PO SCH (08:54)
[2017-12-03] MEDS: GLYCOPYRROLATE 1 MG TAB PO SCH (08:54)
[2017-12-03] MEDS: HALOPERIDOL 1 MG TAB GT SCH (08:55)
[2017-12-03] MEDS: PYRIDOXINE 50 MG TAB GT SCH (08:55)
[2017-12-03] MEDS: ASPIRIN 81 MG TAB.CHEW PO SCH (08:55)
[2017-12-03] MEDS: ASCORBIC ACID 500 MG TAB GT SCH (08:55)
[2017-12-03] MEDS: LORATADINE 10 MG TAB GT SCH (08:55)
[2017-12-03] MEDS: BENZTROPINE 1 MG TAB PO SCH (08:56)
[2017-12-03] MEDS: LACTOBACILLUS RHAMNOSUS GG 1 EACH CAP GT SCH (08:56)
[2017-12-03] MEDS: FERROUS SULFATE 300 MG/5 ML UDC GT SCH (08:56)
[2017-12-03] MEDS: Z-GUARD PASTE TP SCH (08:56)
== END 2017-12-03 09:50 | disposition home or self-care (01) | DRG 871 ==
LOC: MED 22:37 → MTU 11-27 01:36 → UNDOADMIN 11-27 01:36 → MTU 11-27 01:57 → OBSVTOIN 11-28 08:15
PROVIDERS: ADMIT Family Medicine Sports Medicine; ATTEND Family Medicine Sports Medicine
DX: A41.9 Sepsis, unspecified organism (principal); N17.0 Acute kidney failure with tubular necrosis; E43 Unspecified severe protein-calorie malnutrition; R53.2 Functional quadriplegia; D68.59 Other primary thrombophilia; E11.51 Type 2 diabetes mellitus with diabetic peripheral angiopathy without gangrene; R13.10 Dysphagia, unspecified; E87.0 Hyperosmolality and hypernatremia; G80.0 Spastic quadriplegic cerebral palsy; N39.0 Urinary tract infection, site not specified; Z68.1 Body mass index [BMI] 19.9 or less, adult; R56.9 Unspecified convulsions; J98.4 Other disorders of lung; K44.9 Diaphragmatic hernia without obstruction or gangrene; D63.8 Anemia in other chronic diseases classified elsewhere; R62.7 Adult failure to thrive; F79 Unspecified intellectual disabilities; K59.00 Constipation, unspecified; E87.8 Other disorders of electrolyte and fluid balance, not elsewhere classified; I70.209 Unspecified atherosclerosis of native arteries of extremities, unspecified extremity; G80.9 Cerebral palsy, unspecified; K21.9 Gastro-esophageal reflux disease without esophagitis; Z79.899 Other long term (current) drug therapy; Z93.1 Gastrostomy status
CPT/HCPCS: 96365; 99285; G0378; 36415; 71045; 71275; 80048; 80053; 80305; 81001; 82140; 82150; 82550; 82553; 82948; 83036; 83605; 83690; 83735; 83880; 84100; 84436; 84439; 84443; 84479; 84484; 85025; 85379; 85610; 85730; 87040; 87081; 87086; 87186; 93005; 93925; 93970; J1815; J2543; J3490; J7030; J8597; Q0092; Q9967

== ENCOUNTER 2017-12-04 20:11 | Inpatient (IN) | payer OTHER, MEDICAID ==
[~2017-12-04] VITALS: Ht 165.1 cm; Wt 44.9 kg
[2017-12-04 20:11] VITALS: BP 98/55
[~2017-12-04 20:11] MED LIST changes: +AMOX-999 GT; +BISA5ECT43 RC; +LACT10CA1 GT; +NA P135N RC; +[UNRECOGNIZED DRUG - CODE] GT; +[UNRECOGNIZED DRUG - CODE] GT; +[UNRECOGNIZED DRUG - CODE] GT
--- NOTE | 2017-12-04 20:11 | NUR ---
PT JOSIAH ALS. TAKEN TO BED 12
--- NOTE | 2017-12-04 21:30 | NUR ---
52Y/M PT. BIBA FROM SNF TO ED WITH C/O G-TUBE MALFUNCTIUON. ALERT AND RESPONDS TO VERBAL, UNABLE TO MAKE NEEDS KNOWN. G-TUBE UPPER ABDOMEN AND LT. ABDOMEN. MILD REDNESS NOTED. NO S/SX OF DISTRESS AT THIS TIME. ER MD MADE AWARE OF PT. STATUS.
--- NOTE | 2017-12-04 21:35 | NUR ---
PT BIB [facility] C/O G-TUBE MALFUNCTION -SENT FROM [facility] BS 134 BY FD IN FLD. ER TO [facility].
--- NOTE | 2017-12-04 22:10 | NUR ---
Rocio james in [facility] - 12/04/17 at 2210 by IGOR PT TAKEN TO BED 12
[2017-12-04] MEDS ORDERED: ACETAMINOPHEN 325 MG SUPP RC PRN (23:20)
[2017-12-04] MEDS ORDERED: PIPERACILLIN/TAZOBACTAM 3.375 GM in DEXTROSE 5% 50 ML IV SCH (23:30)
--- NOTE | 2017-12-04 23:30 | NUR ---
Note jacob in ED - 12/04/17 at 2349 by [facility] Patient will be admitted to care of . Admited to TELE. Will go to [id number]. Belongings list completed. Report to ROBERTO CARLOS GRIFFIN.
--- NOTE | 2017-12-04 23:30 | NUR ---
Patient will be admitted to care of . Admited to TELE. Will go to [id number]. Belongings list completed. Report to ROBERTO CARLOS GRIFFIN.
[2017-12-04 23:35] VITALS: BP 104/65
--- NOTE | 2017-12-04 23:40 | NUR ---
ADMITTED THIS 52 YEAR OLD MALE FROM ER PER AKIRA WITH CC OF G-TUBE MALFUNCTION, ASSESSMENT DONE, PT APHASIC, HX OBTAINED FROM MEDICAL RECORDS, VITAL SIGNS TAKEN, ST ON TELE WITH 130'S BPM, PUT ON O2 AT 2L/NC, WITH G-TUBE AND J-TUBE IN PLACE AND CLAMPED, ABDOMINAL BINDER APPLIED, GABY MITTENS IN PLACE, SEIZURE PRECAUTION WITH SIDE RAILS PADDED AND UP, BED ALARM ON, ON CONTACT ISOLATION FOR HX OF MRSA NARES AND BLOOD, CALL LIGHT WITHIN REACH.
[2017-12-04] MEDS ORDERED: PIPERACILLIN/TAZOBACTAM 3.375 GM VIAL IV ONE (23:43)
[2017-12-04 23:50] LABS: HEMATOCRIT 26.2 % (36-52); HEMOGLOBIN 8.5 g/dL (12.0-18.0); MEAN CORPUSCULAR HEMOGLOBIN 25 pg (27-31); MEAN CORPUSCULAR HGB CONC 33 g/dL (33-37); MEAN CORPUSCULAR VOLUME 78 fL (80-94); RED BLOOD CELL COUNT(AUTO) 3.37 MIL/uL (4.20-6.10); RED CELL DISTRIBUTION WIDTH 14.8 % (11.6-13.7)
[2017-12-04] MEDS: NACL 0.9% 1,000 ML IV SCH (23:54)
--- NOTE | 2017-12-05 | NUR ---
ZOSYN IVPB ADMINISTERED, MONITORED FOR REACTION, IVF OF NS @ 50ML STARTED, REPOSITIONED Q2H AND OFFLOAD PRESSURE AREAS, MONITORED CLOSELY.
--- NOTE | 2017-12-05 00:20 | NUR ---
GOT A CALL FROM IMELDA THE DETECTIVE LIEUTENANT OF [facility], SHE SAID THERE IS TOO MUCH G-TUBE RESIDUAL UP TO 300ML AND IT'S DISCOLORED AND BOTH TUBE IS FUNCTIONING, NO RESIDUAL NOTED ON J-TUBE, FLUSHES WELL, 10ML COFFEE GROUND RESIDUAL ON G-TUBE NOTED, FLUSHES WELL, DR EMERY MADE AWARE, VERBALIZED TO START FEEDING AT BREAKFAST.
[2017-12-05 01:08] LABS: PROTHROMBIN TIME 10.9 secs (10.8-13.4)
[2017-12-05] MEDS ORDERED: INSULIN LISPRO SLIDING SCALE 100 UNITS/ML VIAL SUBQ PRN (01:40)
[2017-12-05] MEDS ORDERED: DEXTROSE 50% 50 ML SYR IVP PRN (01:40)
[2017-12-05 01:53] LABS: MAGNESIUM 2.4 mg/dL (1.8-2.4); PHOSPHORUS 3.7 mg/dL (2.5-4.9)
[2017-12-05 01:54] LABS: ALBUMIN 2.1 g/dL (3.4-5.0); ANION GAP 13.5 (8-16); CARBON DIOXIDE 30.7 mmol/L (21-32); POTASSIUM 4.2 mmol/L (3.5-5.1); TOTAL BILIRUBIN 0.3 mg/dL (0.0-1.0)
[2017-12-05 02:14] LABS: WHITE BLOOD COUNT (AUTO) 29.2 K/uL (4.8-10.8)
[2017-12-05 02:15] LABS: PLATELET COUNT (AUTO) 564 K/uL (140-450)
[2017-12-05 02:16] LABS: EOSINOPHILS % (MANUAL) 1 % (0-4); LYMPHOCYTES % (MANUAL) 3 % (20-46); MONOCYTES % (MANUAL) 3 % (5-12)
--- NOTE | 2017-12-05 02:49 | NUR ---
STRAIGHT CATH DONE ORDERED, LIGHT LOUISE COLORED URINE NOTED 200ML, URINE SENT TO LAB FOR TEST, PT REPOSITIONED AND OFFLOAD PRESSURE AREAS, MONITORED CLOSELY.
[2017-12-05 02:58] LABS: APPEARANCE,URINE CLOUDY (CLEAR); BILIRUBIN,URINE NEGATIVE (NEGATIVE); BLOOD, URINE NEGATIVE (NEGATIVE); COLOR,URINE YELLOW (YELLOW); LEUKOCYTE ESTERASE ,URINE NEGATIVE (NEGATIVE); NITRITE, URINE NEGATIVE (NEGATIVE); UGLUCOSE NEGATIVE (NEGATIVE)
[2017-12-05 04:00] VITALS: BP 104/62
[2017-12-05] MEDS ORDERED: PIPERACILLIN/TAZOBACTAM 3.375 GM VIAL IV ONE (04:42)
[2017-12-05 04:55] LABS: CALCIUM OXALATE CRYSTALS,UR 0-10 /HPF (None Seen); RBC,URINE 0-5 (RARE) /HPF (0-5); WBC,URINE 0-5 (RARE) /HPF (0-5)
[2017-12-05] MEDS ORDERED: PIPERACILLIN/TAZOBACTAM 3.375 GM in DEXTROSE 5% 50 ML IV SCH (05:00)
[2017-12-05] MEDS: LORazepam 1 MG TAB GT SCH ×3 (05:00→20:18)
--- NOTE | 2017-12-05 05:00 | NUR ---
DUE PO MEDICATION GIVEN THROUGH G-TUBE, ZOSYN IVPB ADMINISTERED, SCD'S APPLIED, INCONTINENT CARE RENDERED, MONITORED CLOSELY.
[2017-12-05] MEDS: METOCLOPRAMIDE 10 MG/10 ML SYRP UDC GT SCH ×2 (06:19→11:51)
[2017-12-05] MEDS: BLOOD GLUCOSE MONITORING 1 DEV DEV FS SCH ×4 (06:32→20:49)
--- NOTE | 2017-12-05 06:33 | NUR ---
BLOOD SUGAR CHECKED WITH 127 RESULT, J-TUBE FEEDING OF DIABETISOURCE 60ML/H WITH FREE WATER FLUSH OF 100ML Q4H STARTED, HOB ELEVATED AT ALL TIMES, IVF INFUSING WELL, NO SEIZURE EPISODE NOTED, SIDE RAILS UP AND BED ALARM ON, MONITORED CLOSELY.
--- NOTE | 2017-12-05 07:05 | NUR ---
ASSUMED CONTINUITY OF CARE. NO SIGNS AND SYMPTOMS OF ACUTE DISTRESS NOTICED. INITIAL ASSESSMENT DONE. HOB ELEVATED AND KEEP COMFORTABLE. SEIZURE AND FALL PRECAUTION APPLIED. CALL LIGHT WITHIN REACH.
--- NOTE | 2017-12-05 07:05 | NUR ---
PT AWAKE, NO DISTRESS NOTED, REPORT GIVEN TO KOBY JAMISON FOR CONTINUITY OF CARE.
[2017-12-05 07:21] LABS: HEMATOCRIT 23.1 % (36-52); HEMOGLOBIN 7.8 g/dL (12.0-18.0); MEAN CORPUSCULAR HEMOGLOBIN 26 pg (27-31); MEAN CORPUSCULAR HGB CONC 34 g/dL (33-37); MEAN CORPUSCULAR VOLUME 76 fL (80-94); PLATELET COUNT (AUTO) 493 K/uL (140-450); RED BLOOD CELL COUNT(AUTO) 3.04 MIL/uL (4.20-6.10); RED CELL DISTRIBUTION WIDTH 14.7 % (11.6-13.7)
[2017-12-05 07:29] LABS: MAGNESIUM 2.4 mg/dL (1.8-2.4); PHOSPHORUS 3.7 mg/dL (2.5-4.9)
--- NOTE | 2017-12-05 07:30 | NUR ---
Patient's Plan of Care was discussed and reviewed with EQUESTRIAN TRAINER: NATALEE.
[2017-12-05 07:44] LABS: ANION GAP 11.3 (8-16); CARBON DIOXIDE 32.8 mmol/L (21-32); POTASSIUM 4.1 mmol/L (3.5-5.1)
[2017-12-05 08:00] VITALS: BP 98/62
[2017-12-05] MEDS: FAMOTIDINE 20 MG/2 ML VIAL IVP SCH (08:42)
[2017-12-05] MEDS ORDERED: FERROUS SULFATE 300 MG/5 ML UDC GT SCH (09:00)
[2017-12-05] MEDS ORDERED: BENZTROPINE 1 MG TAB PO SCH (09:00)
[2017-12-05] MEDS ORDERED: GLYCOPYRROLATE 1 MG TAB PO SCH (09:00)
--- NOTE | 2017-12-05 09:01 | NUR ---
PATIENT HAS BEEN SCREENED AND CATEGORIZED HIGH NUTRITION RISK. PATIENT WILL BE SEEN WITHIN 1-2 DAYS OF ADMISSION. 12/04/17-12/05/[address]
[2017-12-05] MEDS: DOCUSATE 100 MG/10 ML UDC GT SCH (09:24)
[2017-12-05] MEDS: LORATADINE 10 MG TAB GT SCH (09:24)
[2017-12-05] MEDS: ASCORBIC ACID 500 MG TAB GT SCH ×2 (09:25→20:18)
[2017-12-05] MEDS: LACTOBACILLUS RHAMNOSUS GG 1 EACH CAP GT SCH (09:25)
[2017-12-05] MEDS: PYRIDOXINE 50 MG TAB GT SCH (09:25)
[2017-12-05] MEDS: HALOPERIDOL 1 MG TAB GT SCH ×3 (09:27→17:12)
[2017-12-05 09:39] LABS: LYMPHOCYTES % (MANUAL) 10 % (20-46); MONOCYTES % (MANUAL) 2 % (5-12)
[2017-12-05 12:00] VITALS: BP 95/71
[2017-12-05] MEDS: PIPER/TAZO 3.375GM/D5W PREMIX 50 ML IV SCH ×2 (12:22→20:49)
--- NOTE | 2017-12-05 13:10 | NUR ---
DR. NOGUEIRA CAME AND SEEN PT..
[2017-12-05] MEDS ORDERED: MAGNESIUM HYDROXIDE 2400 MG/30 ML UDC PO SCH (13:22)
[2017-12-05] MEDS: FERRIC GLUCONATE 125 MG in NACL 0.9% 100 ML IV SCH (14:27)
--- NOTE | 2017-12-05 15:31 | NUR ---
12/05/2017 RD INITIAL ASSESSMENT COMPLETED PLEASE REFER TO NUTRITION ASSESSMENT UNDER CARE ACTIVITY FOR ESTIMATED NUTRITIONAL NEEDS. 1.PT WILL CONTINUE RECEIVING J-TUBE FEEDING: DIABETISOURCE @ 60ML/HOUR IS PROVIDING 1728 KCALS AND 86 GM PRO PER DAY. THIS IS MEETING 100% ESTIMATED ENERGY NEEDS AND 100% OF ESTIMATED PRO NEEDS PER DAYADEQUATE. RD TO FOLLOW-UP IN 2-3 DAYS PATIENT IS HIGH RISK. TAM ARDON RD
[2017-12-05] MEDS: clonazePAM 0.5 MG TAB PO SCH (17:11)
[2017-12-05] MEDS: SENNA 8.6 MG TAB PO SCH (17:12)
--- NOTE | 2017-12-05 19:09 | NUR ---
REPORT GIVEN TO ELIAS NUNEZ. IVF INFUSING WELL. IN STABLE CONDITION.
--- NOTE | 2017-12-05 19:37 | NUR ---
BEDSIDE REPORT GIVEN TO ANGELA ROBERT -ROBERTO CARLOS. IVF INFUSING WELL. IN STABLE CONDITION.
--- NOTE | 2017-12-05 19:39 | NUR ---
RECEIVED REPORT FROM NURSE, PT HAS NO S/S OF DISTRESS. PT IS AWAKE AND ALERT BUT APHASIC. IV TO THE L HAND 24G PATENT AND INTACT, INFUSING WELL. PT IS ON 2L O2 VIA NC. SKIN IS INTACT, PT IS ON RESTRAINTS NO S/S OF REDNESS OR SKIN BREAKDOWN AROUND WHERE RESTRAINTS ARE. PT HAS G-TUBE AND J-TUBE IN PLACE, PATENT AND INTACT. FEEDING IS INFUSING THROUGH THE J-TUBE. SKIN IS WARM AND DRY TO TOUCH, ALL SAFETY PRECAUTIONS MET, CALL LIGHT WITHIN REACH WILL CONTINUE TO MONITOR Addendum: 12/05/17 at 2247 by Radha Guzman RN BOARD UPDATED
[2017-12-05] MEDS: NACL 0.9% 1,000 ML IV SCH (19:52)
[2017-12-05 20:00] VITALS: BP 90/55
[2017-12-05] MEDS: PANTOPRAZOLE 40 MG INJ VIAL IVP SCH (20:17)
[2017-12-05] MEDS: POLYETHYLENE GLYCOL 17 GM/PKT PO SCH (20:18)
--- NOTE | 2017-12-05 22:30 | NUR ---
PT RESTING IN BED NO S/S OF DISTRESS NOTED. G-TUBE IN PLACE AND INTACT. J-TUBE IN PLACE AND INTACT. DRESSING AND DRY AND INTACT. VS WNL
--- NOTE | 2017-12-06 00:30 | NUR ---
PT RESTING IN BED NO S/S OF DISTRESS NOTED. G-TUBE IN PLACE AND INTACT. J-TUBE IN PLACE AND INTACT. DRESSING AND DRY AND INTACT
--- NOTE | 2017-12-06 03:30 | NUR ---
PT RESTING IN BED NO S/S OF DISTRESS NOTED. G-TUBE IN PLACE AND INTACT. J-TUBE IN PLACE AND INTACT. DRESSING AND DRY AND INTACT
[2017-12-06 04:00] VITALS: BP 86/55
[2017-12-06] MEDS: LORazepam 1 MG TAB GT SCH ×3 (05:33→20:39)
[2017-12-06] MEDS: PIPER/TAZO 3.375GM/D5W PREMIX 50 ML IV SCH ×3 (05:33→20:40)
[2017-12-06 07:20] LABS: BASOPHILS # (AUTO) 0.2 K/uL (0.00-0.22); BASOPHILS % (AUTO) 0.8 % (0.0-2.0); EOSINOPHILS # (AUTO) 0.4 K/uL (0-0.4); EOSINOPHILS % (AUTO) 2.2 % (0.0-4.0); LYMPHOCYTES # (AUTO) 1.9 K/uL (2.0-11.5); MEAN CORPUSCULAR HEMOGLOBIN 26 pg (27-31); MEAN CORPUSCULAR HGB CONC 33 g/dL (33-37); MEAN CORPUSCULAR VOLUME 78 fL (80-94); MONOCYTES # (AUTO) 1.5 K/uL (0.8-1.0); MONOCYTES % (AUTO) 7.8 % (1.7-9.3); NEUTROPHILS % (AUTO) 79.2 % (42.2-75.2); PLATELET COUNT (AUTO) 422 K/uL (140-450); RED BLOOD CELL COUNT(AUTO) 2.61 MIL/uL (4.20-6.10); RED CELL DISTRIBUTION WIDTH 14.8 % (11.6-13.7)
--- NOTE | 2017-12-06 07:29 | NUR ---
REPORT GIVEN TO ALLIE AZEVEDO FOR CONTINUITY OF CARE, PT IN STABLE CONDITION NO S/S OF DISTRESS NOTED
--- NOTE | 2017-12-06 07:30 | NUR ---
RECEIVED REPORT FROM STEAM BOX TENDER NURSE ANGELA AT BEDSIDE FOR CONTINUITY OF CARE. PT IN STABLE CONDITION.
[2017-12-06] MEDS: BLOOD GLUCOSE MONITORING 1 DEV DEV FS SCH ×4 (07:40→20:29)
[2017-12-06 07:47] LABS: ANION GAP 8.9 (8-16); CARBON DIOXIDE 32.1 mmol/L (21-32)
[2017-12-06 07:48] LABS: CREATININE 0.8 mg/dL (0.7-1.3)
[2017-12-06 08:00] VITALS: BP 100/61
[2017-12-06 08:12] LABS: HEMOGLOBIN 6.8 g/dL (12.0-18.0)
[2017-12-06 08:13] LABS: HEMATOCRIT 20.5 % (36-52)
--- NOTE | 2017-12-06 08:30 | NUR ---
REPORTED CRITICAL LAB HGB 6.8 AND HCT 20.5 TO .
--- NOTE | 2017-12-06 08:34 | NUR ---
CHECKED G-TUBE. UNCLAMPED G-TUBE FOR GRAVITY DRAINAGE PER MD ORDER. CHECKED J-TUBE FOR RESIDUAL. 0ML NOTED. J-TUBE FEEDING CONTINUED AT 60ML/HR. PT IN NO SIGNS OF DISTRESS. WILL CONTINUE TO MONITOR.
[2017-12-06] MEDS: PANTOPRAZOLE 40 MG INJ VIAL IVP SCH ×2 (09:34→20:39)
[2017-12-06] MEDS: DOCUSATE 100 MG/10 ML UDC GT SCH (09:34)
[2017-12-06] MEDS: POLYETHYLENE GLYCOL 17 GM/PKT PO SCH ×2 (09:34→20:39)
[2017-12-06] MEDS: SENNA 8.6 MG TAB PO SCH ×3 (09:34→17:19)
[2017-12-06] MEDS: FAMOTIDINE 20 MG/2 ML VIAL IVP SCH (09:34)
[2017-12-06] MEDS: ASCORBIC ACID 500 MG TAB GT SCH ×2 (09:35→20:39)
[2017-12-06] MEDS: PYRIDOXINE 50 MG TAB GT SCH (09:35)
[2017-12-06] MEDS: FOLIC ACID 1 MG TAB PO SCH (09:36)
[2017-12-06] MEDS: LORATADINE 10 MG TAB GT SCH (09:36)
[2017-12-06] MEDS: LACTOBACILLUS RHAMNOSUS GG 1 EACH CAP GT SCH (09:36)
[2017-12-06] MEDS: clonazePAM 0.5 MG TAB PO SCH ×4 (09:36→17:43)
[2017-12-06] MEDS: HALOPERIDOL 1 MG TAB GT SCH ×3 (09:36→17:19)
--- NOTE | 2017-12-06 11:37 | NUR ---
CHECKED BS 105. G-TUBE RESIDUAL 0ML NOTED. J-TUBE RESIDUAL 0ML NOTED. FLUSHED WITH 100ML FREE WATER. PT TOLERATED WELL. REPOSITIONED AND TURNED TO LEFT LATERAL. HOB 30 DEGREES. PT IS SLEEPING IN BED WITH VISIBLE RESPIRATIONS. NO SIGNS OF DISTRESS. O2 SAT 100% ON O2 NC 2L. WILL CONTINUE TO MONITOR.
--- NOTE | 2017-12-06 12:29 | NUR ---
UNCLAMPED G-TUBE FOR GRAVITY DRAINAGE PER MD ORDER. NO RESIDUAL NOTED. PT IS SLEEPING WITH NO SIGNS OF DISTRESS. WILL CONTINUE TO MONITOR.
--- NOTE | 2017-12-06 13:25 | NUR ---
ADMINISTERED SCHEDULED MEDS TO G-TUBE. CLAMPED G-TUBE PER MD ORDER. PT TOLERATED WELL. HOB 30 DEGREES. WILL CONTINUE TO MONITOR.
[2017-12-06] MEDS: FERRIC GLUCONATE 125 MG in NACL 0.9% 100 ML IV SCH (14:21)
[2017-12-06 14:30] LABS: BASOPHILS # (AUTO) 0.1 K/uL (0.00-0.22); BASOPHILS % (AUTO) 0.8 % (0.0-2.0); EOSINOPHILS # (AUTO) 0.5 K/uL (0-0.4); EOSINOPHILS % (AUTO) 3.2 % (0.0-4.0); LYMPHOCYTES # (AUTO) 1.8 K/uL (2.0-11.5); LYMPHOCYTES % (AUTO) 10.9 % (20.5-51.1); MEAN CORPUSCULAR HEMOGLOBIN 25 pg (27-31); MEAN CORPUSCULAR HGB CONC 32 g/dL (33-37); MEAN CORPUSCULAR VOLUME 78 fL (80-94); MONOCYTES # (AUTO) 1.2 K/uL (0.8-1.0); MONOCYTES % (AUTO) 7.6 % (1.7-9.3); NEUTROPHILS # (AUTO) 12.7 K/uL (1.8-7.7); NEUTROPHILS % (AUTO) 77.5 % (42.2-75.2); PLATELET COUNT (AUTO) 450 K/uL (140-450); RED BLOOD CELL COUNT(AUTO) 2.55 MIL/uL (4.20-6.10); RED CELL DISTRIBUTION WIDTH 14.9 % (11.6-13.7); WHITE BLOOD COUNT (AUTO) 16.3 K/uL (4.8-10.8)
[2017-12-06 15:03] LABS: HEMATOCRIT 19.8 % (36-52); HEMOGLOBIN 6.3 g/dL (12.0-18.0)
--- NOTE | 2017-12-06 15:30 | NUR ---
CHECKED G-TUBE FOR RESIDUAL. 20ML NOTED OF YELLOW FLUID FRO G-TUBE. CHECKED J-TUBE RESIDUAL 0ML NOTED. FLUSHED WITH FREE WATER 100ML. PT TOLERATED WELL. NO SIGNS OF DISTRESS. WILL CONTINUE TO MONITOR
[2017-12-06 16:00] VITALS: BP 102/61
--- NOTE | 2017-12-06 16:30 | NUR ---
UNCLAMPED G-TUBE. YELLOW DRAINAGE NOTED. CHECKED BS 92. NO SIGNS OF DISTRESS WILL CONTINUE TO MONITOR.
--- NOTE | 2017-12-06 16:56 | NUR ---
Melissa called and stated that she is the one to give consent and for the weekend, need two physician to obtain consent. She was made aware that patient need to go care home and [place].
--- NOTE | 2017-12-06 17:30 | NUR ---
ADMINISTERED SCHEDULED MEDS TO G-TUBE. CHECKED FOR RESIDUAL 0ML NOTED. CLAMPED G-TUBE. PT TOLERATED WELL. NO SIGNS OF DISTRESS. WILL CONTINUE TO MONITOR.
--- NOTE | 2017-12-06 17:45 | NUR ---
DR. NOGUEIRA CAME IN TO SEE PT.
--- NOTE | 2017-12-06 19:24 | NUR ---
ENDORSED PT TO TRADING MANAGER NURSE PRADEEP AT BEDSIDE FOR CONTINUITY OF CARE. PT IS AWAKE AND APHASIC. IN STABLE CONDITION.
--- NOTE | 2017-12-06 19:25 | NUR ---
RECEIVED REPORT FROM DAY SHIFT NURSE. AAOXO, APHASIC. NO DISTRESS NOTED. G-TUBE AND J-TUBE IN PLACE. J-TUBE WITH CONTINUOS FEEDING AT 60 ML/HR, PT TOLERATING WELL. G-TUBE CLAMPED AT THIS TIME. IV TO LEFT HAND #24G, PATENT AND INTACT. ASPIRATION, SEIZURE AND FALL PRECAUTION IN PLACE. WILL CONTINUE TO MONITOR. CALL LIGHT WITHIN REACH.
[2017-12-06 20:00] VITALS: BP 104/64
--- NOTE | 2017-12-06 20:40 | NUR ---
BLOOD SUGAR CHECKED 100. NO INSULIN COVERAGE NEEDED.
--- NOTE | 2017-12-06 20:50 | NUR ---
DUE MEDS GIVEN VIA G-TUBE. CHECKED FOR RESIDUAL, 0ML NOTED. CLAMPED G-TUBE. PT TOLERATED WELL. NO S/S OF DISTRESS. WILL CONTINUE TO MONITOR.
--- NOTE | 2017-12-06 22:50 | NUR ---
DR. EMERY MADE AWARE OF CRITICAL HGB & HCT LEVEL DONE TODAY AT 1420. MD WILL SEE PT.
--- NOTE | 2017-12-06 23:49 | NUR ---
PT SLEEPING, AROUSES EASILY. NO DISTRESS NOTED. UNCLAMPED G-TUBE. MINIMAL YELLOW DRAINAGE NOTED.
--- NOTE | 2017-12-07 01:05 | NUR ---
CHECKED J-TUBE RESIDUAL, 0 ML NOTED.
--- NOTE | 2017-12-07 01:06 | NUR ---
STARTED NEW BAG OF DIABETISOURCE AT 60 ML/HR. PT TOLERATING FEEDING WELL. ASPIRATION, SEIZURE AND FALL PRECAUTION IN PLACE. CALL LIGHT WITHIN REACH.
[2017-12-07] MEDS ORDERED: CHLORHEXADINE GLUC 2% CLOTH TP SCH (01:45)
--- NOTE | 2017-12-07 03:20 | NUR ---
PT SLEEPING BUT WAKES EASILY. YELLOW DRAINAGE NOTED FROM G-TUBE. NO S/S OF DISTRESS NOTED. ASPIRATION PRECAUTION IN PLACE. CALL LIGHT WITHIN REACH.
[2017-12-07 04:00] VITALS: BP 98/68
[2017-12-07] MEDS: PIPER/TAZO 3.375GM/D5W PREMIX 50 ML IV SCH ×3 (04:49→21:14)
[2017-12-07] MEDS: LORazepam 1 MG TAB GT SCH ×3 (04:49→21:13)
--- NOTE | 2017-12-07 04:55 | NUR ---
CHECKED FOR RESIDUAL 0 ML NOTED. DUE MEDS GIVEN VIA G-TUBE. PT TOLERATED WELL. G-TUBE CLAMPED. NO S/S OF DISTRESS.
--- NOTE | 2017-12-07 06:30 | NUR ---
BLOOD SUGAR CHECKED 104. NO INSULIN COVERAGE NEEDED.
[2017-12-07] MEDS: BLOOD GLUCOSE MONITORING 1 DEV DEV FS SCH ×4 (07:00→21:38)
--- NOTE | 2017-12-07 07:25 | NUR ---
ENDORSED PT TO DAY SHIFT NURSE. PT IN STABLE CONDITION.
--- NOTE | 2017-12-07 07:26 | NUR ---
RECEIVED REPORT FROM AUTO PAINTER NURSE. PATIENT LYING DOWN IN BED SLEEPING, AROUSABLE BY VOICE. NO DISTRESS NOTED. FLACC 0. RESPIRATIONS EVEN, UNLABORED, ON O2 2L/MIN VIA NC. LUNGS CTA ON ALL LOBES. AAOX1, APHASIC, CALM, COOPERATIVE, SKIN COLOR APPROPRIATE TO ETHNICITY, WARM TO TOUCH. SKIN IS INTACT. SOFT WRIST RESTRAINTS AND MITTENS ON PATIENT DUE TO TRYING TO PULL ON TUBES. J-TUBE FEEDING IS INFUSING PER ORDERS, NO RESIDUALS NOTED UPON CHECK. GTUBE SITE IS INTACT, PATENT, AND CLAMPED PER ORDERS. ABDOMEN SOFT, NON-DISTENDED. IV SITE IS INTACT, PATENT, AND INFUSING IVF PER ORDERS. REVIEWED PLAN OF CARE WITH PATIENT. REINFORCEMENT NEEDED. SAFETY MEASURES IN PLACE, CALL LIGHT WITHIN REACH, FALL PREVENTIONS IN PLACE. WILL CONTINUE TO MONITOR.
[2017-12-07 07:37] LABS: BASOPHILS # (AUTO) 0.1 K/uL (0.00-0.22); EOSINOPHILS # (AUTO) 0.5 K/uL (0-0.4); EOSINOPHILS % (AUTO) 3.8 % (0.0-4.0); HEMATOCRIT 21.1 % (36-52); LYMPHOCYTES # (AUTO) 1.5 K/uL (2.0-11.5); LYMPHOCYTES % (AUTO) 11.4 % (20.5-51.1); MEAN CORPUSCULAR HEMOGLOBIN 26 pg (27-31); MEAN CORPUSCULAR HGB CONC 33 g/dL (33-37); MEAN CORPUSCULAR VOLUME 78 fL (80-94); MONOCYTES % (AUTO) 7.6 % (1.7-9.3); NEUTROPHILS % (AUTO) 76.2 % (42.2-75.2); PLATELET COUNT (AUTO) 459 K/uL (140-450); RED BLOOD CELL COUNT(AUTO) 2.71 MIL/uL (4.20-6.10); RED CELL DISTRIBUTION WIDTH 14.9 % (11.6-13.7); WHITE BLOOD COUNT (AUTO) 13.1 K/uL (4.8-10.8)
[2017-12-07 08:00] VITALS: BP 101/70
[2017-12-07 08:17] LABS: HEMOGLOBIN 6.9 g/dL (12.0-18.0)
[2017-12-07] MEDS ORDERED: MUPIROCIN 2% OINT 22 GM TUBE TP SCH (09:00)
[2017-12-07] MEDS ORDERED: MUPIROCIN CA NASAL 2% 1GM TUBE NS SCH (09:00)
[2017-12-07 09:05] LABS: ANION GAP 9.2 (8-16); CARBON DIOXIDE 29.9 mmol/L (21-32); CREATININE 0.7 mg/dL (0.7-1.3); POTASSIUM 4.1 mmol/L (3.5-5.1)
[2017-12-07] MEDS: PANTOPRAZOLE 40 MG INJ VIAL IVP SCH ×2 (09:22→21:13)
[2017-12-07] MEDS: POLYETHYLENE GLYCOL 17 GM/PKT PO SCH ×2 (09:22→21:14)
[2017-12-07] MEDS: DOCUSATE 100 MG/10 ML UDC GT SCH (09:23)
[2017-12-07] MEDS: SENNA 8.6 MG TAB PO SCH ×3 (09:23→16:44)
[2017-12-07] MEDS: FAMOTIDINE 20 MG/2 ML VIAL IVP SCH (09:23)
[2017-12-07] MEDS: HALOPERIDOL 1 MG TAB GT SCH ×3 (09:24→16:44)
[2017-12-07] MEDS: LACTOBACILLUS RHAMNOSUS GG 1 EACH CAP GT SCH (09:24)
[2017-12-07] MEDS: PYRIDOXINE 50 MG TAB GT SCH (09:24)
[2017-12-07] MEDS: LORATADINE 10 MG TAB GT SCH (09:24)
[2017-12-07] MEDS: FOLIC ACID 1 MG TAB PO SCH (09:24)
[2017-12-07] MEDS: ASCORBIC ACID 500 MG TAB GT SCH ×2 (09:25→21:13)
--- NOTE | 2017-12-07 09:30 | NUR ---
PATIENT LYING IN BED SLEEPING, AROUSABLE BY VOICE. NO DISTRESS NOTED. ASSISTED PALS NURSE IN CLEANING AND REPOSITIONING PATIENT. PATIENT HAD A BOWEL MOVEMENT. SCHEDULED MEDICATIONS DUE GIVEN. PATIENT TOLERATED WELL. JTUBE FEEDING INFUSING. GTUBE CLAMPED PER ORDERS AFTER GIVING MEDICATIONS. IV SITE INTACT, PATENT AND INFUSING PER ORDERS. SAFETY MEASURES IN PLACE, CALL LIGHT WITHIN REACH. WILL CONTINUE TO MONITOR.
[2017-12-07 09:57] LABS: MAGNESIUM 2.2 mg/dL (1.8-2.4); PHOSPHORUS 3.5 mg/dL (2.5-4.9)
[2017-12-07] MEDS: clonazePAM 0.5 MG TAB PO SCH ×3 (10:05→16:45)
--- NOTE | 2017-12-07 11:19 | NUR ---
PATIENT LYING IN BED SLEEPING, AROUSABLE BY VOICE. NO DISTRESS NOTED. DENIES ANY PAIN, FLACC 0. SAFETY SOFT WRIST RESTRAINTS IN PLACE, JTUBE FEEDING INFUSING, GTUBE CLAMPED. IV SITE INTACT, PATENT, AND INFUSING IVF PER ORDERS. SAFETY MEASURES IN PLACE, CALL LIGHT WITHIN REACH. WILL CONTINUE TO MONITOR.
--- NOTE | 2017-12-07 11:39 | NUR ---
12/07/17 RD FOLLOW UP COMPLETED PLEASE REFER TO NUTRITION PROGRESS NOTE UNDER CARE ACTIVITY FOR ESTIMATED NUTRITION NEEDS. RD RECOMMENDATIONS: 1. CONTINUE ON CURRENT ENTERAL FEEDING TOLERATED. 2. CONSULT RDN PRN. 3. RD WILL F/U 3-5 DAYS; MODERATE RISK. BEATRICE HATCH MS, RDN
--- NOTE | 2017-12-07 12:45 | NUR ---
PATIENT LYING IN BED SLEEPING, AROUSABLE BY VOICE. NO DISTRESS NOTED. DENIES ANY PAIN. FLACC 0. SCHEDULED MEDICATIONS DUE GIVEN. SAFETY MEASURES IN PLACE, CALL LIGHT WITHIN REACH. SOFT WRIST RESTRAINTS ON. WILL CONTINUE TO MONITOR.
--- NOTE | 2017-12-07 13:54 | NUR ---
Social Service Note: Per senior sales administrator Shanelle from intermediate care facility where patient resides , patient is not conserved. She stated patient's ground support equipment mechanic at [facility] is Melissa . She reported for medical consents [facility] may be contacted. She stated they have an RN at their intermediate care facility and are not able to accommodate patient on abx ivs. She reported she is aware patient's tentative discharge plan is to be transfer to snf for abx ivs.
[2017-12-07] MEDS: FERRIC GLUCONATE 62.5 MG/5 ML AMP IV SCH (15:03)
--- NOTE | 2017-12-07 15:28 | NUR ---
PATIENT LYING IN BED SLEEPING, AROUSABLE BY VOICE. NO DISTRESS NOTED. DENIES ANY PAIN, FLACC 0. ASSISTED PHYSICIAN GENERAL PRACTICE IN CLEANING AND REPOSITIONING PATIENT. SOFT RESTRAINTS ON PATIENT. MITTENS ON PATIENT, NO SKIN INTEGRITY ISSUES NOTED FROM SOFT RESTRAINTS. FERROUS GLUCONATE MEDICATION GIVEN SLOW IV PUSH PER ORDERS. SAFETY MEASURES IN PLACE, CALL LIGHT WITHIN REACH. WILL CONTINUE TO MONITOR.
[2017-12-07 15:51] VITALS: BP 106/73
--- NOTE | 2017-12-07 16:52 | NUR ---
PATIENT LYING IN BED WATCHING TV. NO DISTRESS NOTED. FLACC 0. SCHEDULED MEDICATIONS DUE GIVEN. PATIENT TOLERATED WELL. SAFETY MEASURES IN PLACE, CALL LIGHT WITHIN REACH. WILL CONTINUE TO MONITOR.
--- NOTE | 2017-12-07 17:37 | NUR ---
PATIENT LYING IN BED SLEEPING, NO DISTRESS NOTED. FLACC 0. SAFETY MEASURES IN PLACE, CALL LIGHT WITHIN REACH. WILL CONTINUE TO MONITOR.
--- NOTE | 2017-12-07 18:10 | NUR ---
PATIENT LYING IN BED. NO DISTRESS NOTED. FLACC 0. SOFT WRIST RESTRAINTS ON, MITTENS ON. SKIN INTEGRITY INTACT. SAFETY MEASURES IN PLACE, CALL LIGHT WITHIN REACH. WILL CONTINUE TO MONITOR.
--- NOTE | 2017-12-07 19:18 | NUR ---
GAVE REPORT TO CUSTOMS INVESTIGATOR NURSE FOR CONTINUITY OF CARE. PATIENT IN STABLE CONDITION.
--- NOTE | 2017-12-07 19:19 | NUR ---
RECEIVED REPORT FROM DAY SHIFT NURSE. PATIENT LYING DOWN IN BED NO DISTRESS NOTED. FLACC 0. RESPIRATIONS EVEN, UNLABORED, ON O2 2L/MIN VIA NC. AAOX1, APHASIC, SKIN COLOR WNL, WARM TO TOUCH. SKIN IS INTACT. J-TUBE FEEDING IS INFUSING PER ORDERS, NO RESIDUALS NOTED UPON CHECK. GTUBE SITE IS INTACT, PATENT. ABDOMEN SOFT, NON-DISTENDED. IV SITE L HAND 24G INTACT, PATENT, AND INFUSING IVF PER ORDERS. REVIEWED PLAN OF CARE WITH PATIENT. REINFORCEMENT NEEDED. SAFETY MEASURES IN PLACE, BOARD UPDATED, CALL LIGHT WITHIN REACH, FALL PREVENTIONS IN PLACE. WILL CONTINUE TO MONITOR.
[2017-12-07 20:00] VITALS: BP 106/66
--- NOTE | 2017-12-08 | NUR ---
NEW FEEDING HUNG PER ORDERS, J-TUBE PATENT AND INTACT, PT TOLERATING FEEDING WELL, NO RESIDUAL.
--- NOTE | 2017-12-08 01:30 | NUR ---
PT CLEANED AND CHANGED. PT HAD SMALL BOWEL MOVEMENT, FORMED, SOFT LIGHT BROWN. PT URINATED LIGHT YELLOW URINE. PT KEPT CLEAN AND DRY, ALL SAFETY PRECAUTIONS MET, CALL LIGHT WITHIN REACH, WILL CONTINUE TO MONITOR
--- NOTE | 2017-12-08 01:45 | NUR ---
PTS G-TUBE AND J-TUBE DRESSINGS CHANGED. SMALL AMOUNT OF CRUST NOTED AROUND THE SITE. NO S/S OF INFECTION, NO DRAINAGE, NO REDNESS.
[2017-12-08] MEDS: PIPER/TAZO 3.375GM/D5W PREMIX 50 ML IV SCH ×3 (04:38→20:33)
[2017-12-08] MEDS: LORazepam 1 MG TAB GT SCH ×3 (04:38→20:31)
[2017-12-08] MEDS: BLOOD GLUCOSE MONITORING 1 DEV DEV FS SCH ×4 (07:32→22:56)
[2017-12-08 07:40] LABS: BASOPHILS # (AUTO) 0.1 K/uL (0.00-0.22); BASOPHILS % (AUTO) 0.8 % (0.0-2.0); EOSINOPHILS # (AUTO) 0.4 K/uL (0-0.4); HEMATOCRIT 24.5 % (36-52); HEMOGLOBIN 7.9 g/dL (12.0-18.0); LYMPHOCYTES # (AUTO) 1.4 K/uL (2.0-11.5); LYMPHOCYTES % (AUTO) 11.1 % (20.5-51.1); MEAN CORPUSCULAR HEMOGLOBIN 26 pg (27-31); MEAN CORPUSCULAR HGB CONC 32 g/dL (33-37); MEAN CORPUSCULAR VOLUME 79 fL (80-94); MONOCYTES # (AUTO) 1.1 K/uL (0.8-1.0); MONOCYTES % (AUTO) 8.9 % (1.7-9.3); NEUTROPHILS # (AUTO) 9.3 K/uL (1.8-7.7); NEUTROPHILS % (AUTO) 76.2 % (42.2-75.2); PLATELET COUNT (AUTO) 526 K/uL (140-450); RED BLOOD CELL COUNT(AUTO) 3.11 MIL/uL (4.20-6.10); RED CELL DISTRIBUTION WIDTH 14.8 % (11.6-13.7); WHITE BLOOD COUNT (AUTO) 12.3 K/uL (4.8-10.8)
--- NOTE | 2017-12-08 07:49 | NUR ---
GAVE REPORT TO DAY NURSE FOR CONTINUITY OF CARE, PT IN STABLE CONDITION. NO S/S OF DISTRESS NOTED. IV PATENT AND INTACT. G-TUBE AND J-TUBE PATENT AND INTACT. DRESSINGS DRY AND INTACT
--- NOTE | 2017-12-08 07:50 | NUR ---
RECEIVED REPORT FROM SITE SPECIALIST NURSE. PATIENT LYING DOWN IN BED SLEEPING, AROUSABLE BY VOICE. NO DISTRESS NOTED. FLACC 0. RESPIRATIONS EVEN, UNLABORED, ON O2 2L/MIN VIA NC. LUNGS CTA ON ALL LOBES. AAOX1, APHASIC, CALM, COOPERATIVE, SKIN COLOR APPROPRIATE TO ETHNICITY, WARM TO TOUCH. SKIN IS INTACT. SOFT WRIST RESTRAINTS AND MITTENS ON PATIENT DUE TO TRYING TO PULL ON TUBES. J-TUBE FEEDING IS INFUSING PER ORDERS, NO RESIDUALS NOTED UPON CHECK. GTUBE SITE IS INTACT, PATENT, AND CLAMPED PER ORDERS. ABDOMEN SOFT, NON-DISTENDED. IV SITE IS INTACT, PATENT, AND INFUSING IVF PER ORDERS. REVIEWED PLAN OF CARE WITH PATIENT. REINFORCEMENT NEEDED. SAFETY MEASURES IN PLACE, CALL LIGHT WITHIN REACH, FALL PREVENTIONS IN PLACE. WILL CONTINUE TO MONITOR.
[2017-12-08 08:00] VITALS: BP 104/63
--- NOTE | 2017-12-08 09:45 | NUR ---
PATIENT LYING IN BED SLEEPING, AROUSABLE BY VOICE. NO DISTRESS NOTED. FLACC 0. IV SITE INTACT, PATENT, AND INFUSING IVF PER ORDERS. JTUBE FEEDING PATENT AND INFUSING PER ORDERS. SAFETY MEASURES IN PLACE, CALL LIGHT WITHIN REACH. WILL CONTINUE TO MONITOR.
[2017-12-08] MEDS: FAMOTIDINE 20 MG/2 ML VIAL IVP SCH (10:05)
[2017-12-08] MEDS: DOCUSATE 100 MG/10 ML UDC GT SCH (10:06)
[2017-12-08] MEDS: PANTOPRAZOLE 40 MG INJ VIAL IVP SCH ×2 (10:06→20:34)
[2017-12-08] MEDS: FOLIC ACID 1 MG TAB PO SCH (10:06)
[2017-12-08] MEDS: ASCORBIC ACID 500 MG TAB GT SCH ×2 (10:06→20:32)
[2017-12-08] MEDS: QUEtiapine FUMARATE 25 MG TAB JT SCH ×2 (10:06→20:31)
[2017-12-08] MEDS: HALOPERIDOL 1 MG TAB GT SCH ×3 (10:07→17:27)
[2017-12-08] MEDS: SENNA 8.6 MG TAB PO SCH ×3 (10:07→17:28)
[2017-12-08] MEDS: LORATADINE 10 MG TAB GT SCH (10:07)
[2017-12-08] MEDS: PYRIDOXINE 50 MG TAB GT SCH (10:07)
[2017-12-08] MEDS: POLYETHYLENE GLYCOL 17 GM/PKT PO SCH ×2 (10:08→21:00)
[2017-12-08] MEDS: LACTOBACILLUS RHAMNOSUS GG 1 EACH CAP GT SCH (10:08)
[2017-12-08] MEDS: clonazePAM 0.5 MG TAB PO SCH ×3 (10:09→17:29)
--- NOTE | 2017-12-08 10:10 | NUR ---
PATIENT LYING IN BED SLEEPING, AROUSABLE BY VOICE. NO DISTRESS NOTED. FLACC 0. SCHEDULED MEDICATIONS DUE GIVEN. SAFETY MEASURES IN PLACE, CALL LIGHT WITHIN REACH. WILL CONTINUE TO MONITOR.
--- NOTE | 2017-12-08 12:00 | NUR ---
PATIENT LYING IN BED WATCHING TV. NO DISTRESS NOTED. FLACC 0. CONDITION UNCHANGED. WILL CONTINUE TO MONITOR.
--- NOTE | 2017-12-08 13:43 | NUR ---
PATIENT LYING IN BED WATCHING TV. NO DISTRESS NOTED. FLACC 0. CONDITION UNCHANGED. ASSISTED RECREATION CLERK IN CLEANING AND REPOSITIONING PATIENT. SOFT WRIST RESTRAINTS, AND MITTENS ON PATIENT TO PREVENT TUBES FROM BEING PULLED.SCHEDULED MEDICATIONS DUE GIVEN. PATIENT TOLERATED WELL. SAFETY MEASURES IN PLACE, CALL LIGHT WITHIN REACH. WILL CONTINUE TO MONITOR.
[2017-12-08] MEDS: FERRIC GLUCONATE 62.5 MG/5 ML AMP IV SCH (14:51)
--- NOTE | 2017-12-08 15:11 | NUR ---
SCHEDULED MEDICATIONS DUE GIVEN. CONDITION UNCHANGED. NO DISTRESS NOTED. WILL CONTINUE TO MONITOR.
[2017-12-08 16:00] VITALS: BP 96/70
--- NOTE | 2017-12-08 17:37 | NUR ---
SCHEDULED MEDICATIONS DUE GIVEN. NO DISTRESS NOTED. FLACC 0. CONDITION UNCHANGED. WILL CONTINUE TO MONITOR.
--- NOTE | 2017-12-08 18:00 | NUR ---
PATIENT LYING IN BED. NO DISTRESS NOTED. DENIES ANY PAIN. CONDITION UNCHANGED. WILL CONTINUE TO MONITOR.
--- NOTE | 2017-12-08 19:30 | NUR ---
GAVE REPORT TO MID LEVEL DEVELOPER NURSE FOR CONTINUITY OF CARE. PATIENT IN STABLE CONDITION.
--- NOTE | 2017-12-08 19:31 | NUR ---
PATIENT IS CURRENTLY RESTING IN BED WITH OXYGEN AT 2L VIA NASAL CANNULA IN PLACE. IVF INFUSING WELL IV SITE PATENT FEEDING INFUSING WELL. PATIENT WILL BE TURNED AND REPOSITIONED FOR COMFORT OFFLOADING WILL BE DONE.CALL LIGHT WITHIN REACH.FREQUENT VISUAL CHECKS WILL BE DONE.BED ALARM ON WILL CONTINUE TO MONITOR.
[2017-12-08 20:00] VITALS: BP 113/68
--- NOTE | 2017-12-08 21:00 | NUR ---
MIRALAX MEDICATION NOT ADMINISTERED BECAUSE PATIENT HAS SOFT LOOSE STOOL.
--- NOTE | 2017-12-08 21:00 | NUR ---
Patient's Plan of Care was discussed and reviewed with REPAIRER SHOE STICKS: VEE ARNETT
--- NOTE | 2017-12-08 22:56 | NUR ---
ACCUCHECK DONE RESULT 109MG/DL NO INSULIN NEEDED WILL CONTINUE TO MONITOR.
--- NOTE | 2017-12-08 23:19 | NUR ---
PATIENT HAS BEEN TURNED AND REPOSITIONED FOR COMFORT. CLEANED GOOD PERICARE GIVEN WITH THE ASSISTANCE OF BIBI KRUGER.IVF INFUSING WELL AND IV SITE IS PATENT IV SITE IS GOOD NO INFILTRATION NOTED PATIENT CONTINUES TO WEAR BILATERAL MITTENS SO HE DOESN'T DISLODGE HIS IV LINE AND TUBING.FREQUENT VISUAL CHECKS DONE. CALL LIGHT WITHIN REACH WILL CONTINUE TO MONITOR.
--- NOTE | 2017-12-09 00:55 | NUR ---
PATIENT IS CURRENTLY SLEEPING IN BED NO DISTRESS.FEEDING INFUSING WELL AND IV SITE PATENT WILL CONTINUE TO MONITOR.PATIENT TURNED AND REPOSITIONED.CONTINUES TO HAVE ONLY BILATERAL MITTENS AND HASN'T REMOVED THEM.FREQUENT VISUAL CHECKS DONE.BED ALARM ON.
--- NOTE | 2017-12-09 02:01 | NUR ---
PATIENT SLEEPING IN BED NEEDS MET WILL CONTINUE TO MONITOR PATIENT TURNED AND REPOSITIONED FOR COMFORT.WILL CONTINUE TO MONITOR.
--- NOTE | 2017-12-09 02:38 | NUR ---
PATIENT WAS PULLED UP IN BED WITH THE ASSISTANCE OF BIBI HARRISON. PATIENT CURRENTLY STABLE.NO DISTRESS WILL CONTINUE TO MONITOR.
--- NOTE | 2017-12-09 04:16 | NUR ---
PATIENT STABLE RESTING IN BED WAS TURNED AND REPOSITIONED WITH THE ASSISTANCE OF BIBI HARRISON. WILL CONTINUE TO MONITOR.
[2017-12-09 04:46] VITALS: BP 141/61
[2017-12-09] MEDS: PIPER/TAZO 3.375GM/D5W PREMIX 50 ML IV SCH ×2 (04:48→12:32)
[2017-12-09] MEDS: LORazepam 1 MG TAB GT SCH ×2 (05:00→12:32)
--- NOTE | 2017-12-09 05:49 | NUR ---
PATIENT SLEEPING IN BED IN NO DISTRESS WAS PULLED UP IN BED PATIENT WAS CLEANED AND GOOD PERICARE GIVEN PATIENT REPOSITIONED AND WAS TURNED BY BIBI HARRISON AND BIBI SLICK.FEEDING INFUSING WELL AND NO RESIDUAL WHEN ASPIRATED. MOUTH CARE GIVEN WITH WARM WET WASHCLOTH LIPS ARE VERY DRY AND SCALY.PATIENT CONTINUES TO WEAR THE BILATERAL MITTENS ON BOTH HANDS.CALL LIGHT AND FREQUENT VISUAL CHECKS DONE.
[2017-12-09] MEDS: BLOOD GLUCOSE MONITORING 1 DEV DEV FS SCH ×3 (06:31→16:59)
[2017-12-09 06:42] LABS: HEMATOCRIT 24.7 % (36-52); HEMOGLOBIN 7.9 g/dL (12.0-18.0); MEAN CORPUSCULAR HEMOGLOBIN 25 pg (27-31); MEAN CORPUSCULAR HGB CONC 32 g/dL (33-37); MEAN CORPUSCULAR VOLUME 79 fL (80-94); RED BLOOD CELL COUNT(AUTO) 3.13 MIL/uL (4.20-6.10); RED CELL DISTRIBUTION WIDTH 15.6 % (11.6-13.7); WHITE BLOOD COUNT (AUTO) 12.1 K/uL (4.8-10.8)
[2017-12-09 07:02] LABS: PLATELET COUNT (AUTO) 591 K/uL (140-450)
[2017-12-09 07:03] LABS: EOSINOPHILS % (MANUAL) 2 % (0-4); LYMPHOCYTES % (MANUAL) 18 % (20-46); MONOCYTES % (MANUAL) 4 % (5-12)
--- NOTE | 2017-12-09 07:06 | NUR ---
PATIENT STABLE ENDORSED TO ROBERTO CARLOS IYER AT BESIDE PATIENT SLEEPING.IVF INFUSING WELL IV SITE PATENT.TFEEDING INFUSING WELL.ROBERTO CARLOS IYER WILL RESUME CARE OF THE PATIENT.
--- NOTE | 2017-12-09 07:07 | NUR ---
RECEIVED REPORT FROM APPLICATION SUPPORT MANAGER NURSE. PATIENT LYING DOWN IN BED SLEEPING, AROUSABLE BY VOICE. NO DISTRESS NOTED. FLACC 0. RESPIRATIONS EVEN, UNLABORED, ON O2 2L/MIN VIA NC. LUNGS CTA ON ALL LOBES. AAOX1, APHASIC, CALM, COOPERATIVE, SKIN COLOR APPROPRIATE TO ETHNICITY, WARM TO TOUCH. SKIN IS INTACT. MITTENS ON PATIENT. J-TUBE FEEDING IS INFUSING PER ORDERS, NO RESIDUALS NOTED UPON CHECK. GTUBE SITE IS INTACT, PATENT. ABDOMEN SOFT, NON-DISTENDED. IV SITE IS INTACT, PATENT, AND INFUSING IVF PER ORDERS. REVIEWED PLAN OF CARE WITH PATIENT. REINFORCEMENT NEEDED. SAFETY MEASURES IN PLACE, CALL LIGHT WITHIN REACH, FALL PREVENTIONS IN PLACE. WILL CONTINUE TO MONITOR.
[2017-12-09 07:17] LABS: ANION GAP 9.8 (8-16); CARBON DIOXIDE 31.2 mmol/L (21-32)
[2017-12-09 07:18] LABS: MAGNESIUM 2.2 mg/dL (1.8-2.4); PHOSPHORUS 3.6 mg/dL (2.5-4.9)
[2017-12-09 07:43] LABS: CREATININE 0.8 mg/dL (0.7-1.3)
[2017-12-09 08:00] VITALS: BP 112/68
[2017-12-09] MEDS: DOCUSATE 100 MG/10 ML UDC GT SCH (09:29)
[2017-12-09] MEDS: POLYETHYLENE GLYCOL 17 GM/PKT PO SCH (09:29)
[2017-12-09] MEDS: PYRIDOXINE 50 MG TAB GT SCH (09:30)
[2017-12-09] MEDS: PANTOPRAZOLE 40 MG INJ VIAL IVP SCH (09:30)
[2017-12-09] MEDS: FAMOTIDINE 20 MG/2 ML VIAL IVP SCH (09:30)
[2017-12-09] MEDS: FOLIC ACID 1 MG TAB PO SCH (09:30)
[2017-12-09] MEDS: LACTOBACILLUS RHAMNOSUS GG 1 EACH CAP GT SCH (09:30)
[2017-12-09] MEDS: HALOPERIDOL 1 MG TAB GT SCH ×2 (09:30→12:31)
[2017-12-09] MEDS: LORATADINE 10 MG TAB GT SCH (09:30)
[2017-12-09] MEDS: QUEtiapine FUMARATE 25 MG TAB JT SCH (09:31)
[2017-12-09] MEDS: ASCORBIC ACID 500 MG TAB GT SCH (09:31)
[2017-12-09] MEDS: SENNA 8.6 MG TAB PO SCH ×2 (09:31→12:32)
[2017-12-09] MEDS: clonazePAM 0.5 MG TAB PO SCH ×2 (09:32→12:34)
--- NOTE | 2017-12-09 10:00 | NUR ---
PATIENT LYING IN BED COMFORTABLY. NO DISTRESS NOTED. FLACC 0. CONDITION UNCHANGED. MITTENS ON PATIENT FOR TRYING TO PULL OUT TUBES. SCHEDULED MEDICATIONS DUE GIVEN. SAFETY MEASURES IN PLACE, CALL LIGHT WITHIN REACH. WILL CONTINUE TO MONITOR.
--- NOTE | 2017-12-09 12:40 | NUR ---
PATIENT LYING IN BED WATCHING TV. NO DISTRESS NOTED. FLACC 0. SCHEDULED MEDICATIONS DUE GIVEN. SAFETY MEASURES IN PLACE, CALL LIGHT WITHIN REACH. WILL CONTINUE TO MONITOR.
[2017-12-09] MEDS: FERRIC GLUCONATE 62.5 MG/5 ML AMP IV SCH (14:46)
--- NOTE | 2017-12-09 14:46 | NUR ---
PATIENT LYING IN BED SLEEPING, AROUSABLE BY VOICE. NO DISTRESS NOTED. CONDITION UNCHANGED. SCHEDULED MEDICATIONS DUE GIVEN. SAFETY MEASURES IN PLACE, CALL LIGHT WITHIN REACH. WILL CONTINUE TO MONITOR.
[2017-12-09 16:00] VITALS: BP 94/65
--- NOTE | 2017-12-09 16:10 | NUR ---
CM NOTE PATIENT TO BE PICKED UP VIA GURNEY BY [facility], RM 135A. ETA 1700. DR. MELENDEZ & JASSI RN MADE AWARE.
[2017-12-09] MEDS ORDERED: ZOS3.375I IV (16:26)
[2017-12-09] MEDS ORDERED: QUET25TA46 JT (16:27)
--- NOTE | 2017-12-09 17:00 | NUR ---
PATIENT LYING IN BED COMFORTABLY. NO DISTRESS NOTED. CONDITION UNCHANGED. DISCHARGE INSTRUCTIONS PROVIDED TO PATIENT IN PREFERRED LANGUAGE OF ROMANSH. DISCHARGE INSTRUCTIONS/EDUCATION, FOLLOW-UP VISITS, NEW/CHANGED MEDICATIONS. PATIENT UNABLE TO COMPREHEND. REINFORCEMENT NEEDED. ALL BELONGINGS WITH PATIENT. PATIENT ID BANDS REMOVED. IV SITE WILL REMAIN INTACT DUE TO IV ANTIBIOTICS. GTUBE SITE IS INTACT, PATENT AND CLOSED FOR TRANSPORT. JTUBE SITE IS INTACT, PATENT, AND CLOSED FOR TRANSPORT. CALLED [facility] TO GIVE REPORT FOR PATIENT TRANSPORT. GAVE REPORT TO ROBERTO CARLOS GARRIDO REGARDING PATIENT'S CONDITION AND DISCHARGE PLAN. ANSWERED ALL OF HEMA'S QUESTIONS REGARDING PATIENT. EMPHASIZED THAT GTUBE WAS FOR MEDICATION ONLY AND THAT JTUBE WAS FOR FEEDING. [facility] ARRIVAL TIME TO BE 1700. HEMA VERBALIZED UNDERSTANDING. WILL CONTINUE TO MONITOR PATIENT UNTIL [facility] TRANSPORT ARRIVES.
--- NOTE | 2017-12-09 17:25 | NUR ---
[facility] ARRIVED ON UNIT. GAVE REPORT TO [facility] AND ANSWERED ALL OF THEIR QUESTIONS. PATIENT TAKEN OFF [facility] UNIT BY [facility] TO TRANSFER TO [facility] IN STABLE CONDITION.
[2017-12-09] MEDS ORDERED: PIPERACILLIN/TAZOBACTAM 3.375 GM in DEXTROSE 5% 50 ML IV SCH (21:00)
== END 2017-12-09 17:25 | DRG 393 ==
LOC: MED 20:11 → MTU 23:16
PROVIDERS: ADMIT Family Medicine Sports Medicine; ATTEND Family Medicine Sports Medicine
DX: K94.23 Gastrostomy malfunction (principal); N17.0 Acute kidney failure with tubular necrosis; E43 Unspecified severe protein-calorie malnutrition; D68.59 Other primary thrombophilia; E11.51 Type 2 diabetes mellitus with diabetic peripheral angiopathy without gangrene; E87.0 Hyperosmolality and hypernatremia; R53.2 Functional quadriplegia; Z68.1 Body mass index [BMI] 19.9 or less, adult; E87.8 Other disorders of electrolyte and fluid balance, not elsewhere classified; K21.9 Gastro-esophageal reflux disease without esophagitis; K44.9 Diaphragmatic hernia without obstruction or gangrene; J98.4 Other disorders of lung; D64.9 Anemia, unspecified; G80.9 Cerebral palsy, unspecified; Z79.4 Long term (current) use of insulin; Z87.440 Personal history of urinary (tract) infections
CPT/HCPCS: 36415; 71045; 74018; 80048; 80053; 81001; 82948; 83735; 83880; 84100; 84484; 85025; 85610; 85730; 87081; 87086; 99285; C1758; C9113; J1815; J2543; J2916; J3490; J7030; J7060; J8597; Q0092

== ENCOUNTER 2018-02-05 17:52 | Inpatient (IN) | payer OTHER, MEDICAID ==
[~2018-02-05] VITALS: Ht 159.8 cm; Wt 13.6 kg
[~2018-02-05 17:52] MED LIST changes: -AMOX-999 GT; +QUET25TA46 JT; +ZOS3.375I IV; -[UNRECOGNIZED DRUG - CODE] GT; -[UNRECOGNIZED DRUG - CODE] GT; -[UNRECOGNIZED DRUG - CODE] GT
[2018-02-05 18:14] VITALS: BP 175/114
--- NOTE | 2018-02-05 18:31 | NUR ---
PT W/C ASSISTED TO BED 10.
--- NOTE | 2018-02-05 18:47 | NUR ---
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 C/O J-TUBE DISPLACEMENT X TODAY. PER ELECTRICAL LINE SPLICER, PT "PULLED OUT J-TUBE LAST NIGHT". HX: DM, CEREBAL PALSY, SEIZURE, UTI, GASTRO PARESIS, MRSA, E. COLI. DENIES N/V/D; SKIN IS PINK/WARM/DRY; LUNGS CLEAR BL; HR EVEN AND REGULAR; PT DENIES ANY FEVER, CP, SOB, OR COUGH AT THIS TIME; VSS; PATIENT POSITIONED FOR COMFORT; HOB ELEVATED; BEDRAILS UP X2; BED DOWN. ER MD MADE AWARE OF PT STATUS.
[2018-02-05] MEDS ORDERED: DOCUSATE SODIUM 100 MG GELCAP PO PRN (19:00)
[2018-02-05] MEDS ORDERED: MORPHINE SULFATE 2 MG/ML SYR IVP PRN (19:00)
[2018-02-05] MEDS ORDERED: ACETAMINOPHEN 325 MG TAB PO PRN (19:00)
[2018-02-05] MEDS ORDERED: HYDROcodone/APAP 7.5/325 MG 1 TAB PO PRN (19:00)
[2018-02-05] MEDS ORDERED: ONDANSETRON 4 MG/2 ML VIAL IM/IVP PRN (19:00)
--- NOTE | 2018-02-05 19:30 | NUR ---
Pt report given to ROBERT AZEVEDO. Transfer of care at this time.
--- NOTE | 2018-02-05 19:32 | NUR ---
RECEIVED REPORT FROM GABBY DOWLING.
[2018-02-05 19:52] LABS: BASOPHILS # (AUTO) 0.2 K/uL (0.00-0.22); BASOPHILS % (AUTO) 2.1 % (0.0-2.0); EOSINOPHILS # (AUTO) 0.3 K/uL (0-0.4); EOSINOPHILS % (AUTO) 2.6 % (0.0-4.0); HEMATOCRIT 37.4 % (36-52); HEMOGLOBIN 11.5 g/dL (12.0-18.0); LYMPHOCYTES % (AUTO) 19.5 % (20.5-51.1); MEAN CORPUSCULAR HEMOGLOBIN 24 pg (27-31); MEAN CORPUSCULAR HGB CONC 31 g/dL (33-37); MEAN CORPUSCULAR VOLUME 77 fL (80-94); MONOCYTES % (AUTO) 9.6 % (1.7-9.3); NEUTROPHILS # (AUTO) 6.8 K/uL (1.8-7.7); NEUTROPHILS % (AUTO) 66.2 % (42.2-75.2); PLATELET COUNT (AUTO) 529 K/uL (140-450); RED BLOOD CELL COUNT(AUTO) 4.85 MIL/uL (4.20-6.10); WHITE BLOOD COUNT (AUTO) 10.3 K/uL (4.8-10.8)
--- NOTE | 2018-02-05 20:25 | NUR ---
ADMITTED PATIENT TO THE TELE UNIT. PATIENT AWAKE ALERT APHASIC. NO S/S OF DISTRESS NOTED, RESPIRATION EVEN AND UNLABORED, ON NC 2L. IV PATENT AND INTACT. TELE MONITOR PLACED ON PATIENT. CALL LIGHT WITHIN REACH, SAFETY MEASURE ENSURED, WILL CONTINUE TO MONITOR.
[2018-02-05 20:35] LABS: ALBUMIN 2.6 g/dL (3.4-5.0); ANION GAP 9.5 (8-16); CARBON DIOXIDE 33.5 mmol/L (21-32); CREATININE 0.9 mg/dL (0.7-1.3); TOTAL BILIRUBIN 0.2 mg/dL (0.0-1.0)
[2018-02-05 20:40] VITALS: BP 107/80
[2018-02-05 20:43] LABS: CHOL/HDL RATIO 4.2 (1-4.5); MAGNESIUM 2.4 mg/dL (1.8-2.4); PHOSPHORUS 4.6 mg/dL (2.5-4.9); THYROID STIMULATING HORMONE 1.89 uIU/mL (0.34-3.74)
[2018-02-05] MEDS ORDERED: NACL 0.9% 1,000 ML IV SCH (21:00)
--- NOTE | 2018-02-05 21:25 | NUR ---
Pt report given to KARISSA AZEVEDO. Transfer of care at this time.
--- NOTE | 2018-02-05 21:50 | NUR ---
NO CHANGE IN CONDITION, PATIENT IS SLEEPING, RESPIRATION EVEN AND UNLABORED, CALL LIGHT WITHIN REACH, SAFETY MEASURE ENSURED, WILL CONTINUE TO MONITOR.
[2018-02-05] MEDS ORDERED: LORazepam 1 MG TAB GT PRN (22:40)
[2018-02-05] MEDS: METOPROLOL 25 MG TAB GT SCH (22:50)
[2018-02-05] MEDS ORDERED: MORPHINE SULFATE 4 MG/ML SYR IVP PRN (22:55)
--- NOTE | 2018-02-05 23:35 | NUR ---
BP 96/67, HR 105. LOPRESSOR HELD.
[2018-02-06] VITALS: BP 96/67
--- NOTE | 2018-02-06 01:42 | NUR ---
NO CHANGE IN CONDITION, PATIENT IS SLEEPING, EASY TO AROUSE, RESPIRATION EVEN AND UNLABORED, ON NC 2L, PATIENT VOIDED X1, CLEANED PATIENT AND CHANGED THE GOWN, CALL LIGHT WITHIN REACH, SAFETY MEASURE ENSURED, WILL CONTINUE TO MONITOR.
[2018-02-06 04:00] VITALS: BP 97/67
--- NOTE | 2018-02-06 04:03 | NUR ---
MADE ROUNDS, PATIENT IS SLEEPING, RESPIRATION EVEN AND UNLABORED, ON NC 2L, REPOSITIONED PATIENT TO THE CENTER OF THE BED, CALL LIGHT WITHIN REACH, SAFETY MEASURE ENSURED, WILL CONTINUE TO MONITOR.
[2018-02-06] MEDS: METOCLOPRAMIDE 10 MG/10 ML SYRP UDC GT SCH ×3 (06:39→16:43)
--- NOTE | 2018-02-06 07:01 | NUR ---
IV CATHETER OUT. NO ACTIVE BLEEDING NOTED, TIP INTACT. STARTED NEW IV 22G ON RT FOREARM. PATIENT TOLERATED WELL. WILL CONTINUE TO MONITOR.
--- NOTE | 2018-02-06 07:30 | NUR ---
ENDORSED PLAN OF CARE TO DAY SHIFT RN. PATIENT IS IN STABLE CONDITION.
[2018-02-06 07:50] LABS: BASOPHILS # (AUTO) 0.2 K/uL (0.00-0.22); BASOPHILS % (AUTO) 2.3 % (0.0-2.0); EOSINOPHILS # (AUTO) 0.4 K/uL (0-0.4); EOSINOPHILS % (AUTO) 3.7 % (0.0-4.0); HEMATOCRIT 35.5 % (36-52); HEMOGLOBIN 11.1 g/dL (12.0-18.0); LYMPHOCYTES # (AUTO) 1.6 K/uL (2.0-11.5); LYMPHOCYTES % (AUTO) 16.1 % (20.5-51.1); MEAN CORPUSCULAR HEMOGLOBIN 24 pg (27-31); MEAN CORPUSCULAR HGB CONC 31 g/dL (33-37); MEAN CORPUSCULAR VOLUME 77 fL (80-94); MONOCYTES % (AUTO) 9.9 % (1.7-9.3); NEUTROPHILS # (AUTO) 6.9 K/uL (1.8-7.7); PLATELET COUNT (AUTO) 509 K/uL (140-450); RED BLOOD CELL COUNT(AUTO) 4.63 MIL/uL (4.20-6.10); RED CELL DISTRIBUTION WIDTH 18.2 % (11.6-13.7); WHITE BLOOD COUNT (AUTO) 10.1 K/uL (4.8-10.8)
--- NOTE | 2018-02-06 07:50 | NUR ---
ENDORSEMENT RECEIVED FROM BUFFING WHEEL RAKER NURSE. PATIENT IS SLEEPING COMFORTABLY, EASILY AROUSABLE BY NAME. RESPIRATION EVEN, UNLABOR ON 2L NC. SKIN DRY AND WARM. GTUBE IS IN PLACE, DRY AND INTACT, RESIDUAL CHECKED AT 5 ML. IV PATENT AND INTACT. MANUEL CATH IS IN J TUBE POSITION. FLACC 0. BED AT LOW POSITION, SIDE RAILS UP. CALL LIGHT WITHIN REACH
[2018-02-06 08:00] VITALS: BP 101/66
[2018-02-06 08:08] LABS: ANION GAP 11.5 (8-16); CARBON DIOXIDE 32.2 mmol/L (21-32); CREATININE 0.9 mg/dL (0.7-1.3); POTASSIUM 3.7 mmol/L (3.5-5.1)
[2018-02-06] MEDS: FERROUS SULFATE 300 MG/5 ML UDC GT SCH ×2 (09:17→21:09)
[2018-02-06] MEDS: QUEtiapine FUMARATE 25 MG TAB GT SCH ×2 (09:17→21:08)
[2018-02-06] MEDS: GLYCOPYRROLATE 1 MG TAB GT SCH ×2 (09:18→21:09)
[2018-02-06] MEDS: METOPROLOL 25 MG TAB GT SCH (09:18)
[2018-02-06] MEDS: FAMOTIDINE 20 MG TAB GT SCH (09:18)
[2018-02-06] MEDS: HALOPERIDOL 1 MG TAB GT SCH ×3 (09:18→16:43)
[2018-02-06] MEDS: BENZTROPINE 1 MG TAB GT SCH ×2 (09:18→21:08)
[2018-02-06] MEDS: LORATADINE 10 MG TAB GT SCH (09:19)
--- NOTE | 2018-02-06 10:28 | NUR ---
KALEB MCGILL CAME OFF FROM THE J TUBE POSITION. THE J TUBE OSTOMY WAS COVERED WITH GAUGE. DR. DANG WAS PAGE, WAITING FOR CALL BACK Addendum: 02/06/18 at 1110 by Michelle Velasquez RN DR. FINK WAS MADE AWARE KALEB MCGILL CAME OFF
--- NOTE | 2018-02-06 10:42 | NUR ---
PATIENT HAS BEEN SCREENED AND CATEGORIZED HIGH NUTRITION RISK. PATIENT WILL BE SEEN WITHIN 1-2 DAYS OF ADMISSION. 02/06/18 - 02/07/[address]
--- NOTE | 2018-02-06 11:23 | NUR ---
DR. DANG WAS NOTIFIED REGARDING THE DISPLACEMENT OF MANUEL CATH AND THE TUBE PLACEMENT XRAY RESULT. ADVISED TO "LEAVE EVERYTHING THERE".
[2018-02-06 12:00] VITALS: BP 87/61
[2018-02-06] MEDS ORDERED: LORazepam 1 MG TAB GT PRN (15:06)
--- NOTE | 2018-02-06 15:20 | NUR ---
STRAIGHT CATH WAS PERFORMED PER ORDER. REMOVED 60ML OF URINE, CLEAR, YELLOW. PATIENT TOLERATED WELL
[2018-02-06] MEDS: DEXTROSE 5% 1,000 ML IV SCH (15:57)
[2018-02-06 16:00] VITALS: BP 84/60
--- NOTE | 2018-02-06 17:05 | NUR ---
PATIENT AWAKE, ALERT. RESPIRATION EVEN, UNLABOR ON ROOM AIR. IV PATENT AND INTACT. FLACC 0. NO DISTRESS NOTED AT THIS TIME. CALL LIGHT WITHIN REACH
[2018-02-06 17:29] LABS: APPEARANCE,URINE HAZY (CLEAR); BILIRUBIN,URINE NEGATIVE (NEGATIVE); BLOOD, URINE NEGATIVE (NEGATIVE); COLOR,URINE YELLOW (YELLOW); LEUKOCYTE ESTERASE ,URINE TRACE (NEGATIVE); NITRITE, URINE NEGATIVE (NEGATIVE); UGLUCOSE NEGATIVE (NEGATIVE)
[2018-02-06 17:38] LABS: BARBITURATE, URINE NEG. ng/ml (NEG <=200); BENZODIAZEPINE, URINE NEG. ng/mL (NEG <=200); CANNABINOID, URINE NEG. ng/mL (NEG <=50); COCAINE, URINE NEG. ng/mL (NEG <=300); OPIATE, URINE NEG. ng/mL (NEG <=2000); PHENCYCLIDINE SCREEN,URINE NEG. ng/mL (NEG <=25)
[2018-02-06 18:02] LABS: RBC,URINE 0-5 (RARE) /HPF (0-5); WBC,URINE 0-5 (RARE) /HPF (0-5)
--- NOTE | 2018-02-06 19:17 | NUR ---
ENDORSEMENT GIVEN TO BOAT FUELER NURSE. PATIENT IS STABLE AT THIS TIME
--- NOTE | 2018-02-06 19:18 | NUR ---
REPORT RECEIVED FROM DAY NURSE. NO S/S OF DISTRESS NOTED. PT RESTING COMFORTABLY, EASILY AROUSABLE BY NAME. RESPIRATION EVEN, UNLABOR ON 2L NC. SKIN DRY AND WARM. GTUBE IS IN PLACE, DRY AND INTACT, RESIDUAL CHECKED AT 5 ML. IV PATENT AND INTACT. MANUEL CATH IS IN J TUBE POSITION. FLACC 0. BED AT LOW POSITION, SIDE RAILS UP. CALL LIGHT WITHIN REACH
--- NOTE | 2018-02-06 23:30 | NUR ---
PT RESTING COMFORTABLY IN BED, NO S/S OF DISTRESS NOTED. RR EVEN/UNLABORED
[2018-02-07] VITALS: BP 106/62
--- NOTE | 2018-02-07 01:30 | NUR ---
PT RESTING COMFORTABLY IN BED, NO S/S OF DISTRESS NOTED. RR EVEN/UNLABORED
--- NOTE | 2018-02-07 03:51 | NUR ---
PRE-OP CHECKLIST COMPLETED
--- NOTE | 2018-02-07 03:52 | NUR ---
PT RESTING COMFORTABLY IN BED, NO S/S OF DISTRESS NOTED. RR EVEN/UNLABORED
[2018-02-07 06:29] LABS: T4 (THYROXINE) 6.2 ug/dL (4.5-12.0)
[2018-02-07] MEDS: METOCLOPRAMIDE 10 MG/10 ML SYRP UDC GT SCH ×3 (06:41→17:00)
--- NOTE | 2018-02-07 07:19 | NUR ---
REPORT GIVEN TO DAY SHIFT NURSE FOR CONTINUITY OF CARE, PT IN STABLE CONDITION.
--- NOTE | 2018-02-07 07:30 | NUR ---
REPORT RECEIVED FROM CLINICAL REVIEW SPECIALIST NURSE. NO S/S OF DISTRESS NOTED ON RM AIR. PT RESTING COMFORTABLY, MITTEN ON BOTH HANDS. RESPIRATION EVEN, UNLABORED. SKIN DRY AND WARM. G TUBE IS IN PLACE, 0 RESIDUAL. J TUBE POSITION COVERED WITH DRESSING, INTACT, CLEAN AND DRY. FLACC 0. IV NOTED TO THE RIGHT WRIST, INFUSING WELL, ASYMPTOMATIC. BED AT LOW POSITION, SIDE RAILS UP. CALL LIGHT WITHIN REACH
[2018-02-07 07:55] LABS: ANION GAP 12.7 (8-16); CREATININE 0.9 mg/dL (0.7-1.3); POTASSIUM 3.7 mmol/L (3.5-5.1)
[2018-02-07 08:00] VITALS: BP 97/60
[2018-02-07 08:25] LABS: BASOPHILS # (AUTO) 0.2 K/uL (0.00-0.22); BASOPHILS % (AUTO) 2.5 % (0.0-2.0); EOSINOPHILS # (AUTO) 0.3 K/uL (0-0.4); EOSINOPHILS % (AUTO) 3.2 % (0.0-4.0); HEMOGLOBIN 10.8 g/dL (12.0-18.0); LYMPHOCYTES # (AUTO) 1.6 K/uL (2.0-11.5); LYMPHOCYTES % (AUTO) 17.6 % (20.5-51.1); MEAN CORPUSCULAR HEMOGLOBIN 24 pg (27-31); MEAN CORPUSCULAR HGB CONC 32 g/dL (33-37); MEAN CORPUSCULAR VOLUME 77.1 fL (80-94); MONOCYTES % (AUTO) 10.7 % (1.7-9.3); PLATELET COUNT (AUTO) 468 K/uL (140-450); RED BLOOD CELL COUNT(AUTO) 4.42 MIL/uL (4.20-6.10); RED CELL DISTRIBUTION WIDTH 17.6 % (11.6-13.7); WHITE BLOOD COUNT (AUTO) 9.1 K/uL (4.8-10.8)
[2018-02-07] MEDS ORDERED: BISACODYL 10 MG SUPP RC SCH (09:00)
--- NOTE | 2018-02-07 09:50 | NUR ---
PT WENT TO OR FOR J TUBE PLACEMENT.
[2018-02-07] MEDS ORDERED: BUPIVACAINE-MPF 0.25% 30 ML VIAL INJ ONE (10:11)
[2018-02-07] MEDS ORDERED: PROPOFOL 200 MG/20 ML VIAL IV ONE (10:16)
--- NOTE | 2018-02-07 11:05 | NUR ---
PT IS BACK FROM OR. NO S/S OF ACUTE DISTRESS. VITALS TAKEN, WITHIN NORMAL RANGE.
--- NOTE | 2018-02-07 11:30 | NUR ---
DR ROMO IS OK WITH GIVING 9 OCLOCK MEDS AT THIS TIME. MEDICATION GIVEN VIA G TUBE. G TUBE IS ASPIRATED. 0 ML RESIDUAL. FLUSHED G TUBE AFTER MEDICATION. G TUBE FUNCTIONING WELL.
[2018-02-07] MEDS: BENZTROPINE 1 MG TAB GT SCH (11:35)
[2018-02-07] MEDS: HALOPERIDOL 1 MG TAB GT SCH ×3 (11:35→16:59)
[2018-02-07] MEDS: FAMOTIDINE 20 MG TAB GT SCH (11:36)
[2018-02-07] MEDS: QUEtiapine FUMARATE 25 MG TAB GT SCH (11:36)
[2018-02-07] MEDS: GLYCOPYRROLATE 1 MG TAB GT SCH (11:36)
[2018-02-07] MEDS: LORATADINE 10 MG TAB GT SCH (11:36)
[2018-02-07] MEDS: FERROUS SULFATE 300 MG/5 ML UDC GT SCH (11:36)
--- NOTE | 2018-02-07 13:15 | NUR ---
ORAL CARE DONE. MOUTH MOISTURIZER APPLIED.
[2018-02-07] MEDS: DEXTROSE 5% 1,000 ML IV SCH (14:55)
--- NOTE | 2018-02-07 15:00 | NUR ---
J TUBE RESIDUAL 0ML. FEEDING STARTED VIA J TUBE. DIABETISOURCE 55ML/HR, H2O FLUSH 100ML Q4H.
[2018-02-07 16:00] VITALS: BP 98/66
--- NOTE | 2018-02-07 16:00 | NUR ---
Sales Operations Analyst Notes: I call [facility] Sherri Thomas to provide patient's Status and inform her of patient's discharge today. Per Sherri she will coordinate and send facility staff to orange picking supervisor patient and transport him back to the facility this evening with in 1-2 hours. These group underwriter asked Mrs. Thomas for [facility] therapeutic case manager Ritesh contact [facility] and she provided. I inform her that I will call [facility] tray room worker to let her know of patients D/C today form [facility]. She agreed and thank me.
--- NOTE | 2018-02-07 16:10 | NUR ---
Metalsmith Apprentice notes: I attempted to call [facility] stockroom worker Melissa at to discuss patient's status and discharge form [facility] today. stockroom worker was not available and I left her a voice mail with my contact information and request for a call back.
--- NOTE | 2018-02-07 16:30 | NUR ---
PT HAD BM. CLEANED AND CHANGED GOWN AND CHUX. J TUBE RESIDUAL 1ML. NO S/S OF ACUTE DISTRESS ON RA.
--- NOTE | 2018-02-07 17:10 | NUR ---
PT DISCHARGED PER MD ORDER. PT WILL GO BACK TO HIS FACILITY. DISCHARGE INSTRUCTIONS GIVEN TO THE CAREGIVER. PT HAS CEREBRAL PALSY, UNABLE TO SIGN AND TO COMPREHEND. IV DC'D, TIP INTACT, PRESSURE APPLIED. TUBE FEEDING DC'D. BOTH G TUBE AND J TUBE ADAPTORS ARE TURNED OFF TO PT. PT IS IN STABLE CONDITION AND LEFT WITH ALL HIS BELONGINGS. PT PICKED UP BY THE CAREGIVER IN WHEEL CHAIR.
== END 2018-02-07 17:00 | disposition home or self-care (01) | DRG 393 ==
LOC: MED 17:52 → MTU 19:04 → EDBEDREQSVC 19:11
PROVIDERS: ADMIT Student in an Organized Health Care Education/Training Program; ATTEND Student in an Organized Health Care Education/Training Program
PROC: BD13YZZ Fluoroscopy of Small Bowel using Other Contrast (ICD-10-PCS; 2018-02-07)
PROC: 0DHA3UZ Insertion of Feeding Device into Jejunum, Percutaneous Approach (ICD-10-PCS; principal; 2018-02-07 09:55)
DX: K94.13 Enterostomy malfunction (principal); N17.0 Acute kidney failure with tubular necrosis; E87.0 Hyperosmolality and hypernatremia; N39.0 Urinary tract infection, site not specified; K31.84 Gastroparesis; E11.43 Type 2 diabetes mellitus with diabetic autonomic (poly)neuropathy; D64.9 Anemia, unspecified; I10 Essential (primary) hypertension; F79 Unspecified intellectual disabilities; G80.9 Cerebral palsy, unspecified; G40.909 Epilepsy, unspecified, not intractable, without status epilepticus; Y83.8 Other surgical procedures as the cause of abnormal reaction of the patient, or of later complication, without mention of misadventure at the time of the procedure; D47.3 Essential (hemorrhagic) thrombocythemia; K21.9 Gastro-esophageal reflux disease without esophagitis; F39 Unspecified mood [affective] disorder; K59.00 Constipation, unspecified; K11.7 Disturbances of salivary secretion; Y73.8 Miscellaneous gastroenterology and urology devices associated with adverse incidents, not elsewhere classified; Z79.4 Long term (current) use of insulin; Z74.01 Bed confinement status
CPT/HCPCS: 36415; 71045; 74241; 77003; 80048; 80053; 80305; 81001; 82948; 83036; 83735; 83880; 84100; 84436; 84443; 84479; 85025; 85610; 85730; 87081; 93005; 99285; C1758; J1644; J2704; J3490; J7030; J7060; J7120; J8597; Q0092; Q9965

== ENCOUNTER 2018-02-19 18:13 | Observation (INO) | payer OTHER, MEDICAID ==
[~2018-02-19] VITALS: Ht 160 cm; Wt 44.5 kg
[~2018-02-19 18:13] MED LIST changes: -ZOS3.375I IV
[2018-02-19 18:30] VITALS: BP 109/87
[2018-02-19] MEDS ORDERED: ONDANSETRON 4 MG/2 ML VIAL IVP PRN (22:15)
[2018-02-19] MEDS ORDERED: ACETAMINOPHEN 325 MG TAB PO PRN (22:15)
[2018-02-19 22:55] LABS: BASOPHILS # (AUTO) 0.1 K/uL (0.00-0.22); BASOPHILS % (AUTO) 0.9 % (0.0-2.0); EOSINOPHILS # (AUTO) 0.3 K/uL (0-0.4); EOSINOPHILS % (AUTO) 2.7 % (0.0-4.0); HEMATOCRIT 32.4 % (36-52); HEMOGLOBIN 10.2 g/dL (12.0-18.0); LYMPHOCYTES # (AUTO) 2.1 K/uL (2.0-11.5); LYMPHOCYTES % (AUTO) 19.9 % (20.5-51.1); MEAN CORPUSCULAR HEMOGLOBIN 24 pg (27-31); MEAN CORPUSCULAR HGB CONC 31 g/dL (33-37); MEAN CORPUSCULAR VOLUME 76.1 fL (80-94); MONOCYTES # (AUTO) 0.9 K/uL (0.8-1.0); MONOCYTES % (AUTO) 8.1 % (1.7-9.3); NEUTROPHILS # (AUTO) 7.2 K/uL (1.8-7.7); NEUTROPHILS % (AUTO) 68.4 % (42.2-75.2); PLATELET COUNT (AUTO) 455 K/uL (140-450); RED BLOOD CELL COUNT(AUTO) 4.25 MIL/uL (4.20-6.10); RED CELL DISTRIBUTION WIDTH 18.6 % (11.6-13.7); WHITE BLOOD COUNT (AUTO) 10.6 K/uL (4.8-10.8)
[2018-02-19 23:03] LABS: ANION GAP 10.1 (8-16); CARBON DIOXIDE 31.9 mmol/L (21-32); CREATININE 0.8 mg/dL (0.7-1.3)
[2018-02-19 23:06] LABS: MAGNESIUM 2.3 mg/dL (1.8-2.4); PHOSPHORUS 4.1 mg/dL (2.5-4.9)
[2018-02-20] VITALS: BP 96/60
[2018-02-20] MEDS ORDERED: BISACODYL 5 MG TABEC GT PRN
[2018-02-20] MEDS ORDERED: SODIUM PHOSPHATE 118 ML ENEM RC PRN
[2018-02-20] MEDS ORDERED: ACETAMINOPHEN 325 MG TAB GT SCH
[2018-02-20] MEDS: DEXT 5% / NACL 0.45% 1,000 ML IV SCH (00:10)
[2018-02-20] MEDS: LORazepam 1 MG TAB GT SCH ×3 (04:50→21:00)
[2018-02-20] MEDS: METOCLOPRAMIDE 10 MG/10 ML SYRP UDC GT SCH ×3 (06:49→16:30)
[2018-02-20] MEDS: FERROUS SULFATE 300 MG/5 ML UDC GT SCH ×2 (09:00→21:00)
[2018-02-20] MEDS: FAMOTIDINE 20 MG TAB GT SCH (09:00)
[2018-02-20] MEDS: HALOPERIDOL 1 MG TAB GT SCH ×3 (09:00→17:00)
[2018-02-20] MEDS: LACTOBACILLUS RHAMNOSUS GG 1 EACH CAP PO SCH (09:00)
[2018-02-20] MEDS: GLYCOPYRROLATE 1 MG TAB PO SCH ×2 (09:00→21:00)
[2018-02-20] MEDS: ASCORBIC ACID 500 MG TAB GT SCH ×2 (09:00→21:00)
[2018-02-20] MEDS: PYRIDOXINE 50 MG TAB GT SCH (09:00)
[2018-02-20] MEDS: LORATADINE 10 MG TAB GT SCH (09:00)
[2018-02-20] MEDS: BENZTROPINE 1 MG TAB PO SCH ×2 (09:00→21:00)
[2018-02-20] MEDS: QUEtiapine FUMARATE 25 MG TAB JT SCH ×2 (09:00→21:00)
[2018-02-20 09:01] LABS: PROTHROMBIN TIME 10.7 secs (10.8-13.4)
[2018-02-20 20:00] VITALS: BP 108/62
[2018-02-21] VITALS: BP 93/67
[2018-02-21] MEDS: DEXT 5% / NACL 0.45% 1,000 ML IV SCH (00:10)
[2018-02-21] MEDS: LORazepam 1 MG TAB GT SCH ×2 (04:29→12:08)
[2018-02-21] MEDS: METOCLOPRAMIDE 10 MG/10 ML SYRP UDC GT SCH ×2 (07:09→12:08)
[2018-02-21 08:00] VITALS: BP 109/70
[2018-02-21] MEDS: LACTOBACILLUS RHAMNOSUS GG 1 EACH CAP PO SCH (09:17)
[2018-02-21] MEDS: ASCORBIC ACID 500 MG TAB GT SCH (09:17)
[2018-02-21] MEDS: BENZTROPINE 1 MG TAB PO SCH (09:17)
[2018-02-21] MEDS: QUEtiapine FUMARATE 25 MG TAB JT SCH (09:17)
[2018-02-21] MEDS: FERROUS SULFATE 300 MG/5 ML UDC GT SCH (09:17)
[2018-02-21] MEDS: LORATADINE 10 MG TAB GT SCH (09:18)
[2018-02-21] MEDS: HALOPERIDOL 1 MG TAB GT SCH ×2 (09:18→12:08)
[2018-02-21] MEDS: FAMOTIDINE 20 MG TAB GT SCH (09:18)
[2018-02-21] MEDS: PYRIDOXINE 50 MG TAB GT SCH (09:18)
[2018-02-21] MEDS: GLYCOPYRROLATE 1 MG TAB PO SCH (09:18)
[2018-02-21 16:00] VITALS: BP 99/84
== END 2018-02-21 16:30 ==
LOC: MED 18:13 → MTU 20:57
PROVIDERS: ADMIT Family Medicine Sports Medicine; ATTEND Family Medicine Sports Medicine
DX: K94.23 Gastrostomy malfunction (principal); G40.909 Epilepsy, unspecified, not intractable, without status epilepticus; E11.9 Type 2 diabetes mellitus without complications; D50.0 Iron deficiency anemia secondary to blood loss (chronic); G80.0 Spastic quadriplegic cerebral palsy; Z79.01 Long term (current) use of anticoagulants
CPT/HCPCS: 36415; 74250; 80048; 83735; 84100; 85025; 85610; 85730; 87081; 96360; 96361; 99285; G0378; J8597; Q0092